=== PATIENT | female | born 1970 | race Caucasian/White ===

== ENCOUNTER 2017-07-10 11:14 | Emergency (ER) | payer OTHER ==
--- NOTE | 2017-07-10 11:39 | PDOC ---
History of Present Illness - General History Source: Patient Exam Limitations: No Limitations - History of Present Illness Initial Comments: 07/10/17 13:34 The patient is a 47-year-old female from [facility] with a significant past medical history of cerebral palsy, severe mental retardation, quadriplegic, microcephaly, epilepsy, scoliosis, and presents to the emergency department with shortness of breath. As per [employer]OVE [employer], the patient sounded like she was having difficulty breathing while she was at the day program. GLOVE BO[employer]ER denies fever. Patient is unable to provide any history or ROS secondary to clinical state. History is limited to patient records and [employer] statements. Allergies: NKDA PCP: Dr. Madai Colbert <Tamy Dennis - Last Filed: 07/10/17 13:51> <Olivia Lee - Last Filed: 07/10/17 15:25> - General Chief Complaint: Shortness of Breath Stated Complaint: Shortness of Breath Time Seen by Provider: 07/10/17 11:39 Past History <Tamy Dennis - Last Filed: 07/10/17 13:51> - Past Medical History GI Disorders: Yes (G TUBE) Seizures: Yes (EPILEPSY) - Suicide/Smoking/Psychosocial Hx Smoking Status: No Smoking History: Never smoked Number of Cigarettes Smoked Daily: 0 Hx Alcohol Use: No Drug/Substance Use Hx: No Substance Use Type: None Hx Substance Use Treatment: No <Olivia Lee - Last Filed: 07/10/17 15:25> - Past Medical History Allergies/Adverse Reactions: Allergies Allergy/AdvReac Type Severity Reaction Status Date / Time No Known Allergies Allergy Verified 07/10/17 12:08 Home Medications: Ambulatory Orders Benzoyl Peroxide [Triaz] 01/31/12 Bisacodyl [Magic Bullet] 10 mg RC 01/31/12 Calcium Carbonate/Vitamin D3 [Oysco 500-Vit D3 200 Tablet] 1 each PO DAILY 01/30 CarBAMazepine [Carbatrol ER] 200 mg NR BID 01/31/12 Diazepam [Valium] 5 mg PO TID 01/31/12 Hydrocortisone 2.5% Lotion [Hytone 2.5% Lotion -] ONCE 01/31/12 Loratadine [Claritin 5mg/5mL Liquid] 10 mg PO DAILY 01/31/12 Magnesium Hydrox 2400MG/30Ml [Milk Of Magnesia] 300 mg PO 01/31/12 Mineral Oil [Enema] ml RC 01/31/12 Multivitamin [Multivitamins] 1 each PO DAILY 01/31/12 Ondansetron [Zofran -] 4 mg PO TID #14 tablet 01/31/12 Petrolatum,White [Balmex] 01/31/12 Ranitidine Oral Solution [Zantac Oral Solution -] 10 mg PO DAILY 01/31/12 Selenium mcg PO 01/31/12 Talc [Zeasorb -] 70.9 gm NR BID 01/31/12 Thymol/Me-Salicylate/Menth/Euc [Listerine Antiseptic] ml MM 01/31/12 levoFLOXacin [Levaquin] 500 mg PO DAILY #0 tablet 06/07/12 Review of Systems - Review of Systems Able to Perform ROS?: No (secondary to severe MR) <Tamy Dennis - Last Filed: 07/10/17 13:51> *Physical Exam - Vital Signs Last Vital Signs Temp Pulse Resp BP Pulse Ox 99.6 F 83 20 104/82 96 07/10/17 12:06 07/10/17 12:06 07/10/17 12:06 07/10/17 12:06 07/10/17 12:06 - Physical Exam Comments: 07/10/17 13:51 GENERAL: The patient is in no acute distress. HEAD: Atraumatic, microcephalic. EYES: PERRLA, EOMI, sclera anicteric, conjunctiva clear. ENT: Ears normal, nares patent, oropharynx clear without exudates. Moist mucous membranes. NECK: Supple without lymphadenopathy, JVD, or masses. LUNGS: Breath sounds equal, clear to auscultation bilaterally. No wheezes, and no crackles. HEART: Regular rate and rhythm, normal S1 and S2 without murmur, rub or gallop. ABDOMEN: Soft, nontender, normoactive bowel sounds. G-tube clean and dry. EXTREMITIES: Contracted. No edema. No erythema, or tenderness. NEUROLOGICAL: Alert MUSCULOSKELETAL: Back nontender to palpation, no CVA tenderness SKIN: Warm, Dry, normal turgor, no rashes or lesions noted. <Tamy Dennis - Last Filed: 07/10/17 13:51> ED Treatment Course - LABORATORY CBC & Chemistry Diagram: 07/10/17 12:30 07/10/17 12:30 - ADDITIONAL ORDERS Additional order review: Laboratory Results 07/10/17 07/10/17 07/10/17 12:30 12:30 12:30 PT with INR INR PTT (Actin FS) VBG pH 7.48 H POC VBG pCO2 32.3 L POC VBG pO2 58.1 H Mixed VBG HCO3 23.8 Sodium 138 Potassium 3.7 Chloride 104 Carbon Dioxide 26 Anion Gap 8 BUN 12 Creatinine 0.5 L Creat Clearance w eGFR > 60 Random Glucose 95 Lactic Acid 1.3 Calcium 8.9 Total Bilirubin 0.6 AST 17 ALT 21 Alkaline Phosphatase 113 Creatine Kinase 127 Troponin I < 0.02 Total Protein 7.6 Albumin 4.0 Serum , Qual 07/10/17 07/10/17 12:30 11:55 PT with INR 12.10 H INR 1.07 PTT (Actin FS) 35.8 H VBG pH POC VBG pCO2 POC VBG pO2 Mixed VBG HCO3 Sodium Potassium Chloride Carbon Dioxide Anion Gap BUN Creatinine Creat Clearance w eGFR Random Glucose Lactic Acid Calcium Total Bilirubin AST ALT Alkaline Phosphatase Creatine Kinase Troponin I Total Protein Albumin Serum , Qual Negative 07/10/17 12:30 RBC 4.70 MCV 93.2 MCHC 34.3 RDW 12.3 MPV 9.2 Neutrophils % 57.3 Lymphocytes % 22.9 Monocytes % 13.3 H Eosinophils % 5.8 H D Basophils % 0.7 - Medications Given in the ED: ED Medications Discontinued Medications Generic Name Dose Route Start Last Admin Trade Name Freq PRN Reason Stop Dose Admin Sodium Chloride 1,000 mls @ 1,000 mls/hr 07/10/17 11:55 07/10/17 12:20 Normal Saline - IV 07/10/17 12:54 Not Given ASDIR STA <aTmy Dennis - Last Filed: 07/10/17 13:51> - LABORATORY CBC & Chemistry Diagram: 07/10/17 12:30 07/10/17 12:30 <Olivia Lee - Last Filed: 07/10/17 15:25> Medical Decision Making - Medical Decision Making 07/10/17 14:09 47-year-old female with history of cerebral palsy, seizure disorder who was sent emergency department due to shortness of breath. No fever. No respiratory distress upon arrival here to the emergency department Patient's clinical examination: Selected Entries 07/10/17 12:06 Temperature 99.6 F Pulse Rate 83 Respiratory 20 Rate Blood Pressure 104/82 O2 Sat by Pulse 96 Oximetry (%) Regular rate and rhythm Lungs are clear Pt is using no accessory muscles no nasal flaring DD: Viral syndrome, Pneumonia, Bronchitis, Pleural effusion, pneumothorax EKG: Normal sinus rhythm, rate of 92 bpm, axis is normal, intervals are normal, no ST elevations or depressions 07/10/17 15:16 Laboratory Tests 07/10/17 07/10/17 07/10/17 11:55 12:30 12:30 WBC 8.9 Hgb 15.0 Hct 43.8 Plt Count 316 D Neutrophils % 57.3 Lymphocytes % 22.9 INR 1.07 VBG pH POC VBG pCO2 POC VBG pO2 Mixed VBG HCO3 Sodium Potassium Chloride Carbon Dioxide BUN Creatinine Random Glucose Creatine Kinase Troponin I Serum , Qual Negative 07/10/17 07/10/17 12:30 12:30 WBC Hgb Hct Plt Count Neutrophils % Lymphocytes % INR VBG pH 7.48 H POC VBG pCO2 32.3 L POC VBG pO2 58.1 H Mixed VBG HCO3 23.8 Sodium 138 Potassium 3.7 Chloride 104 Carbon Dioxide 26 BUN 12 Creatinine 0.5 L Random Glucose 95 Creatine Kinase 127 Troponin I < 0.02 Serum , Qual Chest x-ray: Normal I will discharge this patient to home Will ask her to follow up with her PMD Will discharge on Azithromycin Monitor for fevers Clinical Impression: upper respiratory infection 07/10/17 15:17 <Olivia Lee - Last Filed: 07/10/17 15:25> *DC/Admit/Observation/Transfer - Attestations Scribe Attestion: 07/10/17 13:38 Documentation prepared by Tamy Dennis, acting as medical record librarian for Olivia Lee MD/DO. <Tamy Dennis - Last Filed: 07/10/17 13:51> - Discharge Dispostion Admit: No <Olivia Lee - Last Filed: 07/10/17 15:25> Diagnosis at time of Disposition: Upper respiratory infection Qualifiers: URI type: unspecified URI Qualified Code(s): J06.9 - Acute upper respiratory infection, unspecified - Discharge Dispostion Disposition: HOME Condition at time of disposition: Stable - Referrals Referrals: Madai Colbert [Primary Care Provider] - - Patient Instructions Printed Discharge Instructions: DI for Viral Upper Respiratory Infection -- Adult Additional Instructions: Today you were seen for an upper respiratory infection. Take the antibiotic zithromax as directed. You may take robitussin as needed for cough at night. Stay well hydrated and rest. Follow up with your primary care provider within 24 to 48 hours. Go to the emergency room if any new or worsening symptoms develop. - Post Discharge Activity
[2017-07-10 12:08] VITALS: BMI 26.7
[2017-07-10] MEDS ORDERED: ALBUTEROL SO4 2.5/IPRATROPIUM 0.5 INH SOL 3 ML VIAL.NEB. NEB ONE (12:11)
[2017-07-10] MEDS: SODIUM CHLORIDE 1,000 ML IV STA ×2 (12:20→14:31)
[2017-07-10 12:44] LABS: BASO % 0.7 % (0-2.0); EOS % 5.8 % (0-4.5); HEMATOCRIT 43.8 % (32.4-45.2); LYMPH % 22.9 % (8-40); MCHC 34.3 g/dl (32.0-36.0); MEAN CELL VOLUME 93.2 fl (80-96); MEAN PLT VOLUME 9.2 fl (7.5-11.1); MONO % 13.3 % (3.8-10.2); NEUT % 57.3 % (42.8-82.8); PLATELET COUNT 316 K/MM3 (134-434); RDW 12.3 % (11.6-15.6); WHITE BLOOD COUNT 8.9 K/mm3 (4.0-10.0)
[2017-07-10 12:46] LABS: VENOUS PC02 32.3 mmHg (38-52); VENOUS PH 7.48 (7.32-7.42); VENOUS PO2 58.1 mmHg (28-48)
[2017-07-10 12:58] LABS: INR 1.07 (0.82-1.09); PROTHROMBIN TIME (PATIENT) 12.1 SEC (9.98-11.88)
[2017-07-10 13:01] LABS: ACTIVATED PTT 35.8 SECONDS (26.9-34.4)
[2017-07-10 13:09] LABS: ANION GAP 8 (8-16); BILIRUBIN,TOTAL 0.6 mg/dL (0.2-1.0); BLOOD UREA NITROGEN 12 mg/dL (7-18); CALCIUM 8.9 mg/dL (8.5-10.1); CHLORIDE 104 mmol/L (98-107); CO2 26 mmol/L (21-32); CREATININE 0.5 mg/dL (0.55-1.02); GLUCOSE,RANDOM 95 mg/dL (74-106); POTASSIUM 3.7 mmol/L (3.5-5.1); SGOT/AST 17 U/L (15-37); SGPT/ALT 21 U/L (12-78); SODIUM 138 mmol/L (136-145); TOT PROT 7.6 g/dl (6.4-8.2)
[2017-07-10 13:11] LABS: ALK PHOS 113 U/L (45-117)
[2017-07-10 16:02] VITALS: BP 99/60; PULSE 91
[2017-07-10 16:11] VITALS: TEMP 6
--- NOTE | 2017-07-10 16:35 | EKG ---
Test Reason : Blood Pressure : / mmHG Vent. Rate : 092 BPM Atrial Rate : 092 BPM P-R Int : 126 ms QRS Dur : 072 ms QT Int : 328 ms P-R-T Axes : 067 080 050 degrees QTc Int : 405 ms NORMAL SINUS RHYTHM NONSPECIFIC ST AND T WAVE ABNORMALITY ABNORMAL ECG WHEN COMPARED WITH ECG OF 05-JUN-2012 23:31, NO SIGNIFICANT CHANGE WAS FOUND Confirmed by MD Carlie, Morris ([id number]) on 07/10/2017 4:35:42 PM Referred By: Confirmed By:Morris Sexton MD
== END 2017-07-10 15:50 | disposition home or self-care (01) ==
LOC: JER 11:14
PROC: 3E0337Z Introduction of Electrolytic and Water Balance Substance into Peripheral Vein, Percutaneous Approach (ICD-10-PCS; principal; 2017-07-10)
DX: J06.9 Acute upper respiratory infection, unspecified (principal); B97.89 Other viral agents as the cause of diseases classified elsewhere; F78 Other intellectual disabilities; G80.0 Spastic quadriplegic cerebral palsy; Q02 Microcephaly; M41.80 Other forms of scoliosis, site unspecified; Z93.1 Gastrostomy status
CPT/HCPCS: 36415; 71045-TC; 80053; 82550; 82803; 83605; 84484; 84703; 85025; 85610; 85730; 87040; 93005; 93010; 96360; 99284-25

== ENCOUNTER 2020-05-06 16:58 | Inpatient (IN) | payer OTHER ==
[2020-05-06 18:55] LABS: BASO % 0.6 % (0-2.0); EOS % 0.1 % (0-4.5); HEMATOCRIT 43.7 % (32.4-45.2); HEMOGLOBIN 14.4 GM/dL (10.7-15.3); LYMPH % 20.1 % (8-40); MCH 31.1 pg (25.7-33.7); MEAN CELL VOLUME 94.2 fl (80-96); MEAN PLT VOLUME 10.2 fl (7.5-11.1); MONO % 8.7 % (3.8-10.2); NEUT % 70.5 % (42.8-82.8); PLATELET COUNT 321 K/MM3 (134-434); RBC 4.64 M/mm3 (3.60-5.2); RDW 12.1 % (11.6-15.6); WHITE BLOOD COUNT 11.2 K/mm3 (4.0-10.0)
[2020-05-06 19:04] LABS: INR 1.04 (0.83-1.09); PROTHROMBIN TIME (PATIENT) 12.6 SEC (9.7-13.0)
[2020-05-06 19:07] LABS: ACTIVATED PTT 33.6 SECONDS (25.2-36.5)
[2020-05-06 19:18] LABS: POTASSIUM 5.8 mmol/L (3.5-5.1)
[2020-05-06 19:20] LABS: CALCIUM 9.5 mg/dL (8.5-10.1)
[2020-05-06 19:21] LABS: ALBUMIN 3.7 g/dl (3.4-5.0); BLOOD UREA NITROGEN 19.1 mg/dL (7-18)
[2020-05-06 19:24] LABS: CREATININE 0.6 mg/dL (0.55-1.3)
[2020-05-06 19:26] LABS: BILIRUBIN,TOTAL 0.7 mg/dL (0.2-1); TOT PROT 7.8 g/dl (6.4-8.2)
[2020-05-06] MEDS ORDERED: ACETAMINOPHEN 1000 MG/100 ML VIAL (NON FORMULARY) IVPB ONE (20:01)
[2020-05-06] MEDS ORDERED: LACTATED RINGERS SOLUTION 1000 ML INFUS.BAG IV ONE (20:01)
[2020-05-06 20:32] LABS: ERYTHROCYTE SEDIMENTATION RATE 10 mm/hr (0-30)
[2020-05-06] MEDS ORDERED: VANCOMYCIN 1 GM in D5W (PRE-DOCKED) 1,000 MG/250 ML IVPB ONE (20:41)
[2020-05-06] MEDS ORDERED: ACETAMINOPHEN INJECTION 100 ML IVPB ONE (21:07)
[2020-05-06] MEDS ORDERED: VANCOMYCIN 1 GRAM (PRE-DOCKED) 1,000 MG/250 ML BAG IVPB ONE (21:18)
[2020-05-07] MEDS: LACTATED RINGERS SOLUTION 1,000 ML/1,000 ML INFUS.BAG IV SCH (03:01)
[2020-05-07] MEDS ORDERED: VANCOMYCIN 1,000 MG in DEXTROSE 5%-WATER - 250 ML IVPB SCH (06:00)
[2020-05-07] MEDS ORDERED: VANCOMYCIN 1 GRAM (PRE-DOCKED) 1,000 MG/250 ML BAG IVPB ONE (06:13)
[2020-05-07] MEDS: diazePAM 2 MG TABLET GT SCH ×3 (06:44→21:23)
[2020-05-07 08:14] LABS: URIC ACID 3.3 mg/dL (2.6-7.2)
[2020-05-07 08:22] LABS: HEMATOCRIT 34.7 % (32.4-45.2); HEMOGLOBIN 11.6 GM/dL (10.7-15.3); MCHC 33.3 g/dl (32.0-36.0); MEAN CELL VOLUME 93.1 fl (80-96); MEAN PLT VOLUME 10.3 fl (7.5-11.1); PLATELET COUNT 251 K/MM3 (134-434); RBC 3.73 M/mm3 (3.60-5.2); RDW 12.2 % (11.6-15.6); WHITE BLOOD COUNT 8.3 K/mm3 (4.0-10.0)
[2020-05-07 08:31] LABS: POTASSIUM 3.2 mmol/L (3.5-5.1)
[2020-05-07 08:40] LABS: ALBUMIN 3.1 g/dl (3.4-5.0); BLOOD UREA NITROGEN 12.4 mg/dL (7-18); CALCIUM 8.4 mg/dL (8.5-10.1); MAGNESIUM 1.9 mg/dL (1.8-2.4)
[2020-05-07 08:43] LABS: CREATININE 0.3 mg/dL (0.55-1.3); PHOSPHOROUS 2.7 mg/dL (2.5-4.9)
[2020-05-07 08:45] LABS: TOT PROT 6.2 g/dl (6.4-8.2)
[2020-05-07] MEDS ORDERED: SODIUM CHLORIDE 500 ML IV STA (09:06)
[2020-05-07 09:44] LABS: EPI CELLS 18 /uL (0-25.1); HYALINE CASTS 8 /uL (0-3.1); PH,URINE 6.5 (5.0-8.0); URINE APPEARANCE CLOUDY; URINE BACTERIA 5804 /uL (0-1359); URINE BILIRUBIN NEGATIVE (NEGATIVE); URINE COLOR YELLOW; URINE GLUCOSE (UA) NEGATIVE (NEGATIVE); URINE KETONE TRACE (NEGATIVE); URINE LEUK ESTERASE 2+ (NEGATIVE); URINE NITRITE POSITIVE (NEGATIVE); URINE PROTEIN NEGATIVE (NEGATIVE); URINE RBC 16 /uL (0-23.9); URINE UROBILINOGEN 0.2 mg/dL (0.2-1.0); URINE WBC 254 /uL (0-25.8)
[2020-05-07 15:45] LABS: BF WBC & OTHER NUCLEATED CELLS 11942 /mm3
[2020-05-07 16:50] LABS: BODY FLUID MONOCYTE 19 %
[2020-05-07] MEDS ORDERED: DEXTROSE 5%-WATER - 50 ML IVPB ONE (19:24)
[2020-05-07] MEDS ORDERED: PIPERACILLIN/TAZOBACTAM 3.375 GM VIAL IVPB ONE (19:24)
[2020-05-07] MEDS: PIPERACILLIN/TAZOB 3.375 GM 3.375 GM in DEXTROSE 5%-WATER - 50 ML IVPB SCH (19:29)
[2020-05-07] MEDS: VANCOMYCIN 1 GRAM (PRE-DOCKED) 1,000 MG/250 ML BAG IVPB SCH (19:29)
[2020-05-07] MEDS: ACETAMINOPHEN 650 MG/20.3 ML ORAL SOLUTION (CUPS) PEG PRN (21:23)
[2020-05-08] MEDS: LACTATED RINGERS SOLUTION 1,000 ML/1,000 ML INFUS.BAG IV SCH ×3 (00:05→17:25)
[2020-05-08] MEDS ORDERED: PIPERACILLIN/TAZOBACTAM 3.375 GM VIAL IVPB ONE ×3 (02:17→17:21)
[2020-05-08] MEDS ORDERED: DEXTROSE 5%-WATER - 50 ML IVPB ONE ×3 (02:18→17:22)
[2020-05-08] MEDS: PIPERACILLIN/TAZOB 3.375 GM 3.375 GM in DEXTROSE 5%-WATER - 50 ML IVPB SCH ×3 (02:43→17:25)
[2020-05-08] MEDS: diazePAM 2 MG TABLET GT SCH ×3 (05:46→21:01)
[2020-05-08] MEDS: VANCOMYCIN 1 GRAM (PRE-DOCKED) 1,000 MG/250 ML BAG IVPB SCH (05:46)
[2020-05-08] MEDS ORDERED: VANCOMYCIN 1,000 MG in DEXTROSE 5%-WATER - 250 ML IVPB SCH (06:00)
[2020-05-08 09:18] LABS: INR 0.99 (0.83-1.09)
[2020-05-08 09:20] LABS: ACTIVATED PTT 30.7 SECONDS (25.2-36.5)
[2020-05-08] MEDS: ACETAMINOPHEN 650 MG/20.3 ML ORAL SOLUTION (CUPS) PEG PRN (13:24)
[2020-05-09] MEDS ORDERED: PIPERACILLIN/TAZOBACTAM 3.375 GM VIAL IVPB ONE ×3 (01:02→15:48)
[2020-05-09] MEDS ORDERED: DEXTROSE 5%-WATER - 50 ML IVPB ONE ×3 (01:03→15:48)
[2020-05-09] MEDS: PIPERACILLIN/TAZOB 3.375 GM 3.375 GM in DEXTROSE 5%-WATER - 50 ML IVPB SCH ×3 (01:34→17:35)
[2020-05-09] MEDS: diazePAM 2 MG TABLET GT SCH ×3 (05:34→21:56)
[2020-05-09] MEDS: LACTATED RINGERS SOLUTION 1,000 ML/1,000 ML INFUS.BAG IV SCH ×2 (05:35→09:40)
[2020-05-09 08:54] LABS: BASO % 0.5 % (0-2.0); EOS % 0.7 % (0-4.5); HEMATOCRIT 35.6 % (32.4-45.2); HEMOGLOBIN 12.3 GM/dL (10.7-15.3); LYMPH % 29.9 % (8-40); MCH 31.9 pg (25.7-33.7); MCHC 34.5 g/dl (32.0-36.0); MEAN CELL VOLUME 92.4 fl (80-96); NEUT % 52.9 % (42.8-82.8); PLATELET COUNT 282 K/MM3 (134-434); RBC 3.85 M/mm3 (3.60-5.2); WHITE BLOOD COUNT 9.8 K/mm3 (4.0-10.0)
[2020-05-09 09:13] LABS: POTASSIUM 3.4 mmol/L (3.5-5.1)
[2020-05-09 09:14] LABS: CALCIUM 8.4 mg/dL (8.5-10.1)
[2020-05-09 09:15] LABS: ALBUMIN 2.8 g/dl (3.4-5.0); BLOOD UREA NITROGEN 10.3 mg/dL (7-18)
[2020-05-09 09:18] LABS: CREATININE 0.3 mg/dL (0.55-1.3)
[2020-05-09 09:20] LABS: TOT PROT 6.1 g/dl (6.4-8.2)
[2020-05-09 09:23] LABS: BILIRUBIN,TOTAL 0.4 mg/dL (0.2-1)
[2020-05-09] MEDS: ACETAMINOPHEN 650 MG/20.3 ML ORAL SOLUTION (CUPS) PEG PRN (09:51)
[2020-05-09] MEDS ORDERED: VANCOMYCIN 1 GRAM (PRE-DOCKED) 1,000 MG/250 ML BAG IVPB SCH (10:00)
[2020-05-09 11:32] VITALS: BMI 22.3
[2020-05-09] MEDS: KCL 10 MEQ IVPB 10 MEQ/100 ML INFUS.BAG IVPB SCH ×3 (12:54→16:10)
[2020-05-10] MEDS ORDERED: DEXTROSE 5%-WATER - 50 ML IVPB ONE ×3 (01:19→17:37)
[2020-05-10] MEDS ORDERED: PIPERACILLIN/TAZOBACTAM 3.375 GM VIAL IVPB ONE ×3 (01:19→17:36)
[2020-05-10] MEDS: PIPERACILLIN/TAZOB 3.375 GM 3.375 GM in DEXTROSE 5%-WATER - 50 ML IVPB SCH ×3 (01:33→17:54)
[2020-05-10] MEDS: LACTATED RINGERS SOLUTION 1,000 ML/1,000 ML INFUS.BAG IV SCH (05:06)
[2020-05-10] MEDS: diazePAM 2 MG TABLET GT SCH ×3 (06:05→22:01)
[2020-05-10 08:59] LABS: EOS % 3.2 % (0-4.5); HEMATOCRIT 35.7 % (32.4-45.2); HEMOGLOBIN 12.1 GM/dL (10.7-15.3); LYMPH % 37.3 % (8-40); MCH 31.6 pg (25.7-33.7); MCHC 33.9 g/dl (32.0-36.0); MEAN CELL VOLUME 93.2 fl (80-96); MEAN PLT VOLUME 9.4 fl (7.5-11.1); MONO % 12.6 % (3.8-10.2); NEUT % 45.9 % (42.8-82.8); PLATELET COUNT 284 K/MM3 (134-434); RBC 3.83 M/mm3 (3.60-5.2); WHITE BLOOD COUNT 6.9 K/mm3 (4.0-10.0)
[2020-05-10 09:14] LABS: POTASSIUM 3.7 mmol/L (3.5-5.1)
[2020-05-10 09:17] LABS: ALBUMIN 2.6 g/dl (3.4-5.0); BLOOD UREA NITROGEN 6.2 mg/dL (7-18); CALCIUM 8.7 mg/dL (8.5-10.1); MAGNESIUM 2.1 mg/dL (1.8-2.4)
[2020-05-10 09:21] LABS: CREATININE 0.3 mg/dL (0.55-1.3)
[2020-05-10 09:22] LABS: BILIRUBIN,TOTAL 0.4 mg/dL (0.2-1)
[2020-05-11] MEDS ORDERED: PIPERACILLIN/TAZOBACTAM 3.375 GM VIAL IVPB ONE ×3 (01:44→17:53)
[2020-05-11] MEDS ORDERED: DEXTROSE 5%-WATER - 50 ML IVPB ONE ×3 (01:44→17:53)
[2020-05-11] MEDS: PIPERACILLIN/TAZOB 3.375 GM 3.375 GM in DEXTROSE 5%-WATER - 50 ML IVPB SCH ×3 (02:01→18:03)
[2020-05-11] MEDS: diazePAM 2 MG TABLET GT SCH ×3 (06:39→21:59)
[2020-05-11] MEDS: ACETAMINOPHEN 650 MG/20.3 ML ORAL SOLUTION (CUPS) PEG PRN (11:02)
[2020-05-11 14:21] LABS: POTASSIUM 3.5 mmol/L (3.5-5.1)
[2020-05-11 14:22] LABS: CALCIUM 8.7 mg/dL (8.5-10.1)
[2020-05-11 14:23] LABS: BLOOD UREA NITROGEN 8.5 mg/dL (7-18)
[2020-05-11 14:26] LABS: CREATININE 0.4 mg/dL (0.55-1.3)
[2020-05-11] MEDS ORDERED: ACETAMINOPHEN 650 MG/20.3 ML ORAL SOLUTION (CUPS) PO PRN (16:48)
[2020-05-11] MEDS ORDERED: ACETAMINOPHEN 650 MG/20.3 ML ORAL SOLUTION (CUPS) PEG PRN (16:59)
[2020-05-12] MEDS ORDERED: PIPERACILLIN/TAZOBACTAM 3.375 GM VIAL IVPB ONE ×3 (02:30→16:25)
[2020-05-12] MEDS ORDERED: DEXTROSE 5%-WATER - 50 ML IVPB ONE ×3 (02:30→16:25)
[2020-05-12] MEDS: PIPERACILLIN/TAZOB 3.375 GM 3.375 GM in DEXTROSE 5%-WATER - 50 ML IVPB SCH ×3 (02:50→17:38)
[2020-05-12] MEDS: diazePAM 2 MG TABLET GT SCH ×3 (06:03→21:55)
[2020-05-12 10:18] LABS: HEMATOCRIT 37.9 % (32.4-45.2); HEMOGLOBIN 13.1 GM/dL (10.7-15.3); MCH 32.4 pg (25.7-33.7); MCHC 34.6 g/dl (32.0-36.0); MEAN CELL VOLUME 93.6 fl (80-96); MEAN PLT VOLUME 9.4 fl (7.5-11.1); PLATELET COUNT 339 K/MM3 (134-434); RBC 4.05 M/mm3 (3.60-5.2); RDW 12.2 % (11.6-15.6); WHITE BLOOD COUNT 7.7 K/mm3 (4.0-10.0)
[2020-05-12 10:28] LABS: POTASSIUM 3.4 mmol/L (3.5-5.1)
[2020-05-12 10:59] LABS: BLOOD UREA NITROGEN 11.2 mg/dL (7-18); CALCIUM 8.8 mg/dL (8.5-10.1)
[2020-05-12 11:02] LABS: CREATININE 0.4 mg/dL (0.55-1.3)
[2020-05-13] MEDS ORDERED: PIPERACILLIN/TAZOBACTAM 3.375 GM VIAL IVPB ONE (02:17)
[2020-05-13] MEDS ORDERED: DEXTROSE 5%-WATER - 50 ML IVPB ONE (02:17)
[2020-05-13] MEDS: PIPERACILLIN/TAZOB 3.375 GM 3.375 GM in DEXTROSE 5%-WATER - 50 ML IVPB SCH (02:34)
[2020-05-13] MEDS: diazePAM 2 MG TABLET GT SCH ×3 (05:59→21:36)
[2020-05-13] MEDS ORDERED: PCA PUMP NR ONE (06:21)
[2020-05-13] MEDS ORDERED: ACETAMINOPHEN 650 MG/20.3 ML ORAL SOLUTION (CUPS) PEG PRN (11:43)
[2020-05-13] MEDS ORDERED: POTASSIUM CHLORIDE ORAL LIQUID 20 MEQ/15 ML PEG ONE (12:00)
[2020-05-13] MEDS ORDERED: PT OWN MED DRAWER 7, Y5N ONE (18:57)
[2020-05-13] MEDS: ENOXAPARIN NA (PORCINE) 40 MG/0.4 ML DISP.SYRIN SQ SCH (19:00)
[2020-05-14] MEDS: diazePAM 2 MG TABLET GT SCH ×2 (06:05→14:18)
[2020-05-14 09:08] LABS: POTASSIUM 3.7 mmol/L (3.5-5.1)
[2020-05-14 09:09] LABS: CALCIUM 9.2 mg/dL (8.5-10.1)
[2020-05-14 09:10] LABS: BLOOD UREA NITROGEN 18.8 mg/dL (7-18)
[2020-05-14 09:13] LABS: CREATININE 0.4 mg/dL (0.55-1.3)
[2020-05-14] MEDS: ENOXAPARIN NA (PORCINE) 40 MG/0.4 ML DISP.SYRIN SQ SCH (09:30)
[2020-05-14 15:04] VITALS: BP 112/51; PULSE 86; TEMP 99
== END 2020-05-14 16:52 | DRG 871 ==
LOC: JER 16:58 → JERBED 23:43 → J5S 05-07 17:13 → J6S 05-13 18:18
PROVIDERS: ADMIT Hospitalist; ATTEND Internal Medicine
PROC: 0S9C3ZX Drainage of Right Knee Joint, Percutaneous Approach, Diagnostic (ICD-10-PCS; principal; 2020-05-07)
DX: A41.89 Other specified sepsis (principal); R53.2 Functional quadriplegia; F72 Severe intellectual disabilities; L03.115 Cellulitis of right lower limb; E87.2 Acidosis; Q67.5 Congenital deformity of spine; N39.0 Urinary tract infection, site not specified; M25.061 Hemarthrosis, right knee; G40.909 Epilepsy, unspecified, not intractable, without status epilepticus; G80.9 Cerebral palsy, unspecified; Q02 Microcephaly; D72.829 Elevated white blood cell count, unspecified; Z93.1 Gastrostomy status; B96.20 Unspecified Escherichia coli [E. coli] as the cause of diseases classified elsewhere; Z74.01 Bed confinement status; M25.461 Effusion, right knee; N20.0 Calculus of kidney
CPT/HCPCS: 36415; 71045-TC-FY; 71260-TC; 73560-TC-RT-FY; 73610-TC-RT-FY; 73630-TC-RT-FY; 74177-TC; 76882-TC-RT-FY; 80048; 80053; 81003; 83605; 83735; 83970; 84100; 84132; 84550; 85025; 85027; 85610; 85651; 85730; 86038; 86140; 86618; 87040; 87070; 87075; 87086; 87186; 87205; 87804; 87807; 93005; 93010; 93971-TC; 99285-25; C9803; G0480; J0131; U0003

== ENCOUNTER 2021-12-11 19:17 | Observation (INO) | payer OTHER ==
[2021-12-11 19:54] VITALS: BMI 23.9
[2021-12-11 22:01] LABS: EOS % 2.4 % (0-4.5); HEMATOCRIT 42.2 % (32.4-45.2); HEMOGLOBIN 14.8 GM/dL (10.7-15.3); LYMPH % 34.9 % (8-40); MCH 31.8 pg (25.7-33.7); MEAN CELL VOLUME 90.9 fl (80-96); MONO % 9.1 % (3.8-10.2); NEUT % 52.6 % (42.8-82.8); PLATELET COUNT 418 10^3/uL (134-434); RBC 4.64 M/mm3 (3.60-5.2); RDW 12.1 % (11.6-15.6); WHITE BLOOD COUNT 6.8 K/mm3 (4.0-10.0)
[2021-12-11 22:08] LABS: INR 1.11 (0.83-1.09); PROTHROMBIN TIME (PATIENT) 12.8 SEC (9.7-13.0)
[2021-12-11 22:10] LABS: ACTIVATED PTT 40.9 SECONDS (25.2-36.5)
[2021-12-11 22:41] LABS: CALCIUM 9.3 mg/dL (8.5-10.1)
[2021-12-11 22:42] LABS: ALBUMIN 3.7 g/dl (3.4-5.0); BLOOD UREA NITROGEN 10.4 mg/dL (7-18)
[2021-12-11 22:45] LABS: CREATININE 0.4 mg/dL (0.55-1.3)
[2021-12-11 22:47] LABS: BILIRUBIN,TOTAL 0.4 mg/dL (0.2-1)
[2021-12-12] MEDS ORDERED: VANCOMYCIN 750 MG in DEXTROSE 5%-WATER - 150 ML IVPB SCH ×3 (02:30→06:45)
[2021-12-12] MEDS ORDERED: VANCOMYCIN/WATER FOR INJ (PEG) 750 MG/150 ML BAG IVPB SCH (05:54)
[2021-12-12] MEDS: LACTATED RINGERS SOLUTION 1,000 ML/1,000 ML INFUS.BAG IV SCH (06:06)
[2021-12-12] MEDS ORDERED: HEPARIN NA (PORCINE) 5,000 UNITS/ML 1ML VIAL ONE ×3 (06:43→23:48)
[2021-12-12] MEDS: HEPARIN NA (PORCINE) 5,000 UNITS/ML 1ML VIAL SQ SCH ×2 (06:50→14:06)
[2021-12-12] MEDS ORDERED: LACTATED RINGERS SOLUTION 1000 ML INFUS.BAG IV ONE (07:53)
[2021-12-12] MEDS ORDERED: diazePAM CARPU-JECT 10 MG/2 ML DISP.SYRIN ONE ×3 (08:34→23:49)
[2021-12-12] MEDS: diazePAM CARPU-JECT 10 MG/2 ML DISP.SYRIN IM SCH ×2 (08:39→14:06)
[2021-12-12 10:22] LABS: EOS % 2.5 % (0-4.5); HEMATOCRIT 40.8 % (32.4-45.2); HEMOGLOBIN 14.1 GM/dL (10.7-15.3); LYMPH % 36.5 % (8-40); MCH 31.6 pg (25.7-33.7); MCHC 34.6 g/dl (32.0-36.0); MEAN CELL VOLUME 91.4 fl (80-96); MEAN PLT VOLUME 9.7 fl (7.5-11.1); MONO % 9.1 % (3.8-10.2); NEUT % 50.9 % (42.8-82.8); PLATELET COUNT 440 10^3/uL (134-434); RBC 4.47 M/mm3 (3.60-5.2); RDW 12.3 % (11.6-15.6); WHITE BLOOD COUNT 6.3 K/mm3 (4.0-10.0)
[2021-12-12 10:37] LABS: ALBUMIN 3.6 g/dl (3.4-5.0); CALCIUM 9.2 mg/dL (8.5-10.1); MAGNESIUM 2.6 mg/dL (1.8-2.4)
[2021-12-12 10:40] LABS: PHOSPHOROUS 3.1 mg/dL (2.5-4.9)
[2021-12-12 10:41] LABS: CREATININE 0.3 mg/dL (0.55-1.3)
[2021-12-12 10:42] LABS: BILIRUBIN,TOTAL 0.6 mg/dL (0.2-1); TOT PROT 7.7 g/dl (6.4-8.2)
[2021-12-12] MEDS: VANCOMYCIN/WATER FOR INJ (PEG) 750 MG/150 ML BAG IVPB SCH (18:11)
[2021-12-13] MEDS: diazePAM CARPU-JECT 10 MG/2 ML DISP.SYRIN IM SCH ×3 (00:04→15:13)
[2021-12-13] MEDS: HEPARIN NA (PORCINE) 5,000 UNITS/ML 1ML VIAL SQ SCH ×3 (00:04→15:13)
[2021-12-13] MEDS: LACTATED RINGERS SOLUTION 1,000 ML/1,000 ML INFUS.BAG IV SCH (04:29)
[2021-12-13 05:46] VITALS: BP 140/79; PULSE 80; TEMP 98.1
[2021-12-13] MEDS ORDERED: HEPARIN NA (PORCINE) 5,000 UNITS/ML 1ML VIAL ONE ×2 (06:05→15:08)
[2021-12-13] MEDS ORDERED: diazePAM CARPU-JECT 10 MG/2 ML DISP.SYRIN ONE ×2 (06:05→15:08)
[2021-12-13] MEDS: VANCOMYCIN/WATER FOR INJ (PEG) 750 MG/150 ML BAG IVPB SCH (07:25)
[2021-12-13 11:27] LABS: BLOOD UREA NITROGEN 8.3 mg/dL (7-18); CALCIUM 8.4 mg/dL (8.5-10.1); CREATININE 0.3 mg/dL (0.55-1.3)
== END 2021-12-13 16:00 | disposition home or self-care (01) ==
LOC: JER 19:17 → JERBED 20:33 → INTOOBSV 20:33
PROVIDERS: ADMIT Internal Medicine; ATTEND Internal Medicine
PROC: 3E033NZ Introduction of Analgesics, Hypnotics, Sedatives into Peripheral Vein, Percutaneous Approach (ICD-10-PCS; principal; 2021-12-11)
PROC: 3E023GC Introduction of Other Therapeutic Substance into Muscle, Percutaneous Approach (ICD-10-PCS; 2021-12-11)
PROC: 3E0337Z Introduction of Electrolytic and Water Balance Substance into Peripheral Vein, Percutaneous Approach (ICD-10-PCS; 2021-12-11)
PROC: 3E03329 Introduction of Other Anti-infective into Peripheral Vein, Percutaneous Approach (ICD-10-PCS; 2021-12-11)
PROC: 0D20XUZ Change Feeding Device in Upper Intestinal Tract, External Approach (ICD-10-PCS; 2021-12-11)
DX: K94.22 Gastrostomy infection (principal); K94.23 Gastrostomy malfunction; K80.20 Calculus of gallbladder without cholecystitis without obstruction; L03.319 Cellulitis of trunk, unspecified; G40.909 Epilepsy, unspecified, not intractable, without status epilepticus; G80.9 Cerebral palsy, unspecified; M41.9 Scoliosis, unspecified
CPT/HCPCS: 36415; 74018-TC-FY; 74177-TC; 80048; 80053; 83605; 83690; 83735; 84100; 85025; 85610; 85730; 93005; 93010; 96360; 96365; 96372; 99285-25; C9803-CS; G0378; J1644; Q9967; U0003; U0005

== ENCOUNTER 2022-11-18 12:24 | Inpatient (IN) | payer OTHER ==
[2022-11-18] MEDS ORDERED: SODIUM CHLORIDE 0.9% 500 ML INFUS.BAG IV ONE (12:33)
[2022-11-18 13:18] LABS: VENOUS BASE EXCESS 5.9 mmol/L (-2-2); VENOUS PCO2 39.2 mmHg (38-52); VENOUS PH 7.495 (7.310-7.410)
[2022-11-18 13:20] LABS: EOS % 0.6 % (0-4.5); HEMATOCRIT 33.3 % (32.4-45.2); HEMOGLOBIN 11.5 GM/dL (10.7-15.3); LYMPH % 4.7 % (8-40); MCH 31.3 pg (25.7-33.7); MCHC 34.5 g/dl (32.0-36.0); MEAN CELL VOLUME 90.6 fl (80-96); MEAN PLT VOLUME 9.5 fl (7.5-11.1); MONO % 9.4 % (3.8-10.2); NEUT % 85.3 % (42.8-82.8); PLATELET COUNT 285 10^3/uL (134-434); RBC 3.67 M/mm3 (3.60-5.2); RDW 12.1 % (11.6-15.6)
[2022-11-18 13:27] LABS: INR 1.05 (0.83-1.09); PROTHROMBIN TIME (PATIENT) 12.2 SEC (9.7-13.0)
[2022-11-18 13:29] LABS: ACTIVATED PTT 27.3 SECONDS (25.2-36.5)
[2022-11-18 13:43] LABS: CHLORIDE 93 mmol/L (98-107); POTASSIUM 3.2 mmol/L (3.5-5.1); SODIUM 133 mmol/L (136-145)
[2022-11-18 13:43] LABS: EPI CELLS 25 /uL (0-25.1); HYALINE CASTS 0 /uL (0-3.1); URINE APPEARANCE CLEAR; URINE BACTERIA 945 /uL (0-1359); URINE BILIRUBIN NEGATIVE (NEGATIVE); URINE COLOR YELLOW; URINE GLUCOSE (UA) NEGATIVE (NEGATIVE); URINE KETONE NEGATIVE (NEGATIVE); URINE LEUK ESTERASE 3+ (NEGATIVE); URINE NITRITE NEGATIVE (NEGATIVE); URINE PROTEIN NEGATIVE (NEGATIVE); URINE RBC 5 /uL (0-23.9); URINE UROBILINOGEN 0.2 mg/dL (0.2-1.0); URINE WBC 301 /uL (0-25.8)
[2022-11-18 13:45] LABS: CALCIUM 8.6 mg/dL (8.5-10.1)
[2022-11-18 13:46] LABS: ALBUMIN 2.4 g/dl (3.4-5.0); ANION GAP 9 MMOL/L (8-16); BLOOD UREA NITROGEN 13.3 mg/dL (7-18); CO2 31 mmol/L (21-32); GLUCOSE,RANDOM 154 mg/dL (74-106)
[2022-11-18 13:49] LABS: CREATININE 0.4 mg/dL (0.55-1.3); SGOT/AST 13 U/L (15-37); SGPT/ALT 16 U/L (13-61)
[2022-11-18] MEDS ORDERED: CEFTRIAXONE 1,000 MG in DEXTROSE 5%-WATER - 50 ML IVPB ONE (13:49)
[2022-11-18] MEDS ORDERED: AZITHROMYCIN IVPB 500 MG in DEXTROSE 5%-WATER - 250 ML IVPB ONE (13:49)
[2022-11-18 13:50] LABS: BILIRUBIN,TOTAL 0.6 mg/dL (0.2-1); TOT PROT 6.1 g/dl (6.4-8.2)
[2022-11-18 13:51] LABS: ALK PHOS 101 U/L (45-117)
[2022-11-18] MEDS ORDERED: POTASSIUM CHLORIDE ORAL LIQUID 20 MEQ/15 ML PO ONE (13:53)
[2022-11-18] MEDS ORDERED: POTASSIUM CHLORIDE ORAL LIQUID 20 MEQ/15 ML PEG ONE (13:54)
[2022-11-18] MEDS ORDERED: CEFTRIAXONE 1 GM/50 ML BAG ONE (14:06)
[2022-11-18] MEDS ORDERED: POTASSIUM CHLORIDE ORAL LIQUID 20 MEQ/15 ML ONE (14:32)
[2022-11-18] MEDS ORDERED: AZITHROMYCIN IVPB 500 MG/250 ML BAG IVPB ONE (14:44)
[2022-11-18] MEDS ORDERED: ACETAMINOPHEN 1000 MG/100 ML BAG IVPB ONE (15:07)
[2022-11-18] MEDS ORDERED: ACETAMINOPHEN INJECTION 100 ML IVPB ONE (15:38)
[2022-11-18] MEDS ORDERED: BISACODYL 10 MG SUPP.RECT PR PRN (16:42)
[2022-11-18] MEDS: LACTATED RINGERS SOLUTION 1,000 ML/1,000 ML INFUS.BAG IV SCH ×2 (17:57→22:51)
[2022-11-18] MEDS ORDERED: CEFEPIME 2 GM/100 ML BAG IVPB ONE (18:56)
[2022-11-18] MEDS: CEFEPIME 2 GM in DEXTROSE 5%-WATER 100 ML IVPB SCH (18:58)
[2022-11-18] MEDS: DOXYCYCLINE INJECTION 100 MG in DEXTROSE 5%-WATER 100 ML IVPB SCH (21:05)
[2022-11-18] MEDS: diazePAM 2 MG TABLET GT SCH (21:05)
[2022-11-18] MEDS ORDERED: CEFEPIME 2 GM in DEXTROSE 5%-WATER 100 ML IVPB SCH (22:00)
[2022-11-18] MEDS ORDERED: LORATADINE GT SCH (22:00)
[2022-11-18] MEDS ORDERED: [UNRECOGNIZED DRUG - OTHER] GT SCH (22:00)
[2022-11-18] MEDS ORDERED: FAMOTIDINE 20 MG TABLET PEG SCH (22:00)
[2022-11-18] MEDS ORDERED: PATIENT'S OWN MEDICATION (NON-FORMULARY) (Multivitamin [Multivitamin] 1 EACH Tablet) GT SCH (22:00)
[2022-11-18] MEDS: FAMOTIDINE 20 MG/2.5 ML ORAL LIQUID PEG SCH (22:27)
[2022-11-18] MEDS: LORATADINE 10 MG TABLET GT SCH (22:28)
[2022-11-18] MEDS: HEPARIN NA (PORCINE) 5,000 UNITS/ML 1ML VIAL SQ SCH (22:28)
[2022-11-18] MEDS: MULTIVIT-MINERALS ORAL LIQUID PO SCH (22:28)
[2022-11-18] MEDS: CALCIUM 500MG/VIT-D 200 UNITS COMBO TABLET (FP) GT SCH (22:53)
[2022-11-19] MEDS: diazePAM 2 MG TABLET GT SCH ×3 (05:01→21:06)
[2022-11-19] MEDS: CEFEPIME 2 GM in DEXTROSE 5%-WATER 100 ML IVPB SCH ×2 (05:01→17:46)
[2022-11-19] MEDS: DOXYCYCLINE INJECTION 100 MG in DEXTROSE 5%-WATER 100 ML IVPB SCH ×2 (09:31→21:04)
[2022-11-19] MEDS: CALCIUM 500MG/VIT-D 200 UNITS COMBO TABLET (FP) GT SCH ×2 (09:31→21:05)
[2022-11-19] MEDS: HEPARIN NA (PORCINE) 5,000 UNITS/ML 1ML VIAL SQ SCH ×2 (09:31→21:05)
[2022-11-19 09:49] LABS: BASO % 0.1 % (0-2.0); EOS % 0.1 % (0-4.5); HEMOGLOBIN 10.9 GM/dL (10.7-15.3); LYMPH % 14.5 % (8-40); MCH 31.3 pg (25.7-33.7); MCHC 34.1 g/dl (32.0-36.0); MEAN CELL VOLUME 91.8 fl (80-96); MEAN PLT VOLUME 9.4 fl (7.5-11.1); MONO % 13.6 % (3.8-10.2); NEUT % 71.7 % (42.8-82.8); PLATELET COUNT 313 10^3/uL (134-434); RBC 3.48 M/mm3 (3.60-5.2); RDW 12.4 % (11.6-15.6); WHITE BLOOD COUNT 12.8 K/mm3 (4.0-10.0)
[2022-11-19 10:05] LABS: POTASSIUM 3.7 mmol/L (3.5-5.1)
[2022-11-19 10:18] LABS: BLOOD UREA NITROGEN 12.5 mg/dL (7-18); CALCIUM 8.2 mg/dL (8.5-10.1)
[2022-11-19 10:21] LABS: CREATININE 0.5 mg/dL (0.55-1.3)
[2022-11-19 11:20] VITALS: BMI 20.2
[2022-11-19] MEDS: LACTATED RINGERS SOLUTION 1,000 ML/1,000 ML INFUS.BAG IV SCH (17:40)
[2022-11-19] MEDS: ALBUTEROL SO4 2.5/IPRATROPIUM 0.5 INH SOL 3 ML VIAL.NEB. NEB PRN (18:05)
[2022-11-19] MEDS ORDERED: ACETAMINOPHEN 1000 MG/100 ML BAG IVPB ONE (20:26)
[2022-11-19] MEDS: MULTIVIT-MINERALS ORAL LIQUID PO SCH (21:04)
[2022-11-19] MEDS: LORATADINE 10 MG TABLET GT SCH (21:05)
[2022-11-19] MEDS: FAMOTIDINE 20 MG/2.5 ML ORAL LIQUID PEG SCH (21:06)
[2022-11-20] MEDS ORDERED: ACETAMINOPHEN 1000 MG/100 ML BAG IVPB ONE (02:52)
[2022-11-20] MEDS: ALBUTEROL SO4 2.5/IPRATROPIUM 0.5 INH SOL 3 ML VIAL.NEB. NEB PRN ×2 (02:56→16:37)
[2022-11-20] MEDS ORDERED: LACTATED RINGERS SOLUTION 1000 ML INFUS.BAG IV ONE (05:31)
[2022-11-20] MEDS: diazePAM 2 MG TABLET GT SCH ×3 (05:35→21:46)
[2022-11-20] MEDS: CEFEPIME 2 GM in DEXTROSE 5%-WATER 100 ML IVPB SCH (06:10)
[2022-11-20 09:46] LABS: BASO % 0.5 % (0-2.0); EOS % 0.9 % (0-4.5); HEMOGLOBIN 10.2 GM/dL (10.7-15.3); LYMPH % 17.7 % (8-40); MCH 31.2 pg (25.7-33.7); MCHC 34.2 g/dl (32.0-36.0); MEAN CELL VOLUME 91.3 fl (80-96); MEAN PLT VOLUME 9.1 fl (7.5-11.1); NEUT % 71.9 % (42.8-82.8); PLATELET COUNT 318 10^3/uL (134-434); RBC 3.28 M/mm3 (3.60-5.2); RDW 12.5 % (11.6-15.6); WHITE BLOOD COUNT 13.2 K/mm3 (4.0-10.0)
[2022-11-20 09:52] LABS: INR 1.17 (0.83-1.09); PROTHROMBIN TIME (PATIENT) 13.5 SEC (9.7-13.0)
[2022-11-20 09:53] LABS: ACTIVATED PTT 28.3 SECONDS (25.2-36.5)
[2022-11-20 10:03] LABS: POTASSIUM 3.6 mmol/L (3.5-5.1)
[2022-11-20 10:05] LABS: CALCIUM 8.3 mg/dL (8.5-10.1)
[2022-11-20 10:06] LABS: BLOOD UREA NITROGEN 16.3 mg/dL (7-18); MAGNESIUM 1.9 mg/dL (1.8-2.4)
[2022-11-20 10:09] LABS: CREATININE 0.3 mg/dL (0.55-1.3); PHOSPHOROUS 2.2 mg/dL (2.5-4.9)
[2022-11-20 10:10] LABS: BILIRUBIN,TOTAL 0.3 mg/dL (0.2-1)
[2022-11-20 10:11] LABS: TOT PROT 4.9 g/dl (6.4-8.2)
[2022-11-20 10:20] LABS: ALBUMIN 1.8 g/dl (3.4-5.0)
[2022-11-20] MEDS: CALCIUM 500MG/VIT-D 200 UNITS COMBO TABLET (FP) GT SCH ×2 (10:33→22:09)
[2022-11-20] MEDS: DOXYCYCLINE INJECTION 100 MG in DEXTROSE 5%-WATER 100 ML IVPB SCH (10:33)
[2022-11-20] MEDS: HEPARIN NA (PORCINE) 5,000 UNITS/ML 1ML VIAL SQ SCH ×2 (10:33→21:45)
[2022-11-20] MEDS ORDERED: ACETAMINOPHEN 325 MG TABLET (FP) PO PRN (12:06)
[2022-11-20] MEDS: ACETAMINOPHEN 325 MG TABLET (FP) NR PRN (12:41)
[2022-11-20] MEDS: PIPERACILLIN/TAZOB 3.375 GM 3.375 GM in DEXTROSE 5%-WATER - 50 ML IVPB SCH (16:55)
[2022-11-20] MEDS ORDERED: NAPH,MB-DB/K PH,MBDB POWDER PACKET GT ONE (17:42)
[2022-11-20] MEDS: LACTATED RINGERS SOLUTION 1,000 ML/1,000 ML INFUS.BAG IV SCH (17:52)
[2022-11-20] MEDS: MULTIVIT-MINERALS ORAL LIQUID PO SCH (21:45)
[2022-11-20] MEDS: LORATADINE 10 MG TABLET GT SCH (21:45)
[2022-11-20] MEDS: FAMOTIDINE 20 MG/2.5 ML ORAL LIQUID PEG SCH (21:47)
[2022-11-21] MEDS: PIPERACILLIN/TAZOB 3.375 GM 3.375 GM in DEXTROSE 5%-WATER - 50 ML IVPB SCH ×4 (00:49→23:00)
[2022-11-21] MEDS: ACETAMINOPHEN 325 MG TABLET (FP) NR PRN (05:29)
[2022-11-21] MEDS: diazePAM 2 MG TABLET GT SCH ×3 (06:38→22:45)
[2022-11-21] MEDS: HEPARIN NA (PORCINE) 5,000 UNITS/ML 1ML VIAL SQ SCH ×2 (09:33→22:46)
[2022-11-21] MEDS: CALCIUM 500MG/VIT-D 200 UNITS COMBO TABLET (FP) GT SCH ×2 (09:34→22:45)
[2022-11-21 09:38] LABS: BASO % 0.9 % (0-2.0); EOS % 2.9 % (0-4.5); HEMATOCRIT 33.1 % (32.4-45.2); HEMOGLOBIN 10.9 GM/dL (10.7-15.3); LYMPH % 19.9 % (8-40); MCH 30.9 pg (25.7-33.7); MEAN CELL VOLUME 93.5 fl (80-96); MEAN PLT VOLUME 9.1 fl (7.5-11.1); NEUT % 69.3 % (42.8-82.8); PLATELET COUNT 447 10^3/uL (134-434); RBC 3.54 M/mm3 (3.60-5.2); RDW 12.7 % (11.6-15.6); WHITE BLOOD COUNT 13.8 K/mm3 (4.0-10.0)
[2022-11-21 10:02] LABS: POTASSIUM 3.9 mmol/L (3.5-5.1)
[2022-11-21 10:12] LABS: BLOOD UREA NITROGEN 13.4 mg/dL (7-18); CALCIUM 8.8 mg/dL (8.5-10.1)
[2022-11-21 10:16] LABS: CREATININE 0.4 mg/dL (0.55-1.3)
[2022-11-21] MEDS ORDERED: diazePAM 2 MG TABLET GT SCH (12:20)
[2022-11-21] MEDS ORDERED: ALBUTEROL SO4 2.5/IPRATROPIUM 0.5 INH SOL 3 ML VIAL.NEB. NEB PRN (12:29)
[2022-11-21] MEDS: SCOPOLAMINE HYDROBROMIDE 1 PATCH PATCH.TD72 TD SCH (13:08)
[2022-11-21 14:56] LABS: PHOSPHOROUS 4.6 mg/dL (2.5-4.9)
[2022-11-21] MEDS ORDERED: ACETAMINOPHEN 1000 MG/100 ML BAG IVPB ONE (15:22)
[2022-11-21] MEDS ORDERED: SODIUM CHLORIDE 1,000 ML IV STA (15:23)
[2022-11-21] MEDS: LACTATED RINGERS SOLUTION 1,000 ML/1,000 ML INFUS.BAG IV SCH (16:59)
[2022-11-21] MEDS: LORATADINE 10 MG TABLET GT SCH (22:45)
[2022-11-21] MEDS: MULTIVIT-MINERALS ORAL LIQUID PO SCH (22:45)
[2022-11-21] MEDS: FAMOTIDINE 20 MG/2.5 ML ORAL LIQUID PEG SCH (22:46)
[2022-11-22] MEDS: diazePAM 2 MG TABLET GT SCH ×2 (05:13→13:49)
[2022-11-22] MEDS: PIPERACILLIN/TAZOB 3.375 GM 3.375 GM in DEXTROSE 5%-WATER - 50 ML IVPB SCH ×2 (08:47→16:30)
[2022-11-22] MEDS: LACTATED RINGERS SOLUTION 1,000 ML/1,000 ML INFUS.BAG IV SCH ×2 (08:47→16:30)
[2022-11-22] MEDS: ACETAMINOPHEN 325 MG TABLET (FP) NR PRN (08:48)
[2022-11-22 09:33] LABS: HEMATOCRIT 33.6 % (32.4-45.2); HEMOGLOBIN 11.2 GM/dL (10.7-15.3); MCH 31.1 pg (25.7-33.7); MCHC 33.3 g/dl (32.0-36.0); MEAN CELL VOLUME 93.4 fl (80-96); MEAN PLT VOLUME 8.6 fl (7.5-11.1); PLATELET COUNT 547 10^3/uL (134-434); RDW 12.5 % (11.6-15.6); WHITE BLOOD COUNT 12.4 K/mm3 (4.0-10.0)
[2022-11-22 09:54] LABS: POTASSIUM 3.7 mmol/L (3.5-5.1)
[2022-11-22 10:00] LABS: BLOOD UREA NITROGEN 10.8 mg/dL (7-18); CALCIUM 9.1 mg/dL (8.5-10.1)
[2022-11-22 10:03] LABS: CREATININE 0.3 mg/dL (0.55-1.3)
[2022-11-22 10:05] LABS: BILIRUBIN,TOTAL 0.9 mg/dL (0.2-1); TOT PROT 5.3 g/dl (6.4-8.2)
[2022-11-22] MEDS: HEPARIN NA (PORCINE) 5,000 UNITS/ML 1ML VIAL SQ SCH ×2 (11:02→23:09)
[2022-11-22] MEDS: CALCIUM 500MG/VIT-D 200 UNITS COMBO TABLET (FP) GT SCH (11:02)
[2022-11-22 11:31] LABS: ANISOCYTOSIS 0; MACROCYTOSIS 1+; ROULEAU 1+
[2022-11-22] MEDS ORDERED: BACITRACIN ZINC 15 GM TUBE TOPICAL OINTMENT TP PRN (16:06)
[2022-11-22] MEDS ORDERED: ZINC OXIDE 20% TOPICAL OINTMENT 30 GM TUBE TP PRN (16:06)
[2022-11-22] MEDS ORDERED: SIMETHICONE 40 MG/0.6 ML BOTTLE GT PRN ×2 (16:10→16:11)
[2022-11-22] MEDS: MAGNESIUM HYDROX 2400MG/30ML ORAL SUSPENSION 30 ML CUP GT SCH (17:22)
[2022-11-22] MEDS: LORATADINE 10 MG TABLET GT SCH (23:09)
[2022-11-22] MEDS: MULTIVIT-MINERALS ORAL LIQUID GT SCH (23:09)
[2022-11-22] MEDS: FAMOTIDINE 20 MG/2.5 ML ORAL LIQUID PEG SCH (23:10)
[2022-11-23] MEDS: PIPERACILLIN/TAZOB 3.375 GM 3.375 GM in DEXTROSE 5%-WATER - 50 ML IVPB SCH ×3 (00:07→15:33)
[2022-11-23] MEDS: LACTATED RINGERS SOLUTION 1,000 ML/1,000 ML INFUS.BAG IV SCH (01:58)
[2022-11-23] MEDS: HEPARIN NA (PORCINE) 5,000 UNITS/ML 1ML VIAL SQ SCH ×2 (09:52→21:24)
[2022-11-23] MEDS: DOCUSATE NA 100 MG/10 ML UNIT-DOSE CUPS GT SCH (09:53)
[2022-11-23 10:10] LABS: HEMOGLOBIN 10.4 GM/dL (10.7-15.3); MCH 31.7 pg (25.7-33.7); MCHC 34.6 g/dl (32.0-36.0); MEAN CELL VOLUME 91.8 fl (80-96); MEAN PLT VOLUME 7.9 fl (7.5-11.1); PLATELET COUNT 569 10^3/uL (134-434); RBC 3.27 M/mm3 (3.60-5.2); RDW 12.8 % (11.6-15.6); WHITE BLOOD COUNT 12.8 K/mm3 (4.0-10.0)
[2022-11-23 10:41] LABS: POTASSIUM 3.5 mmol/L (3.5-5.1)
[2022-11-23 10:42] LABS: BLOOD UREA NITROGEN 9.4 mg/dL (7-18); CALCIUM 9.1 mg/dL (8.5-10.1)
[2022-11-23 10:46] LABS: CREATININE 0.5 mg/dL (0.55-1.3)
[2022-11-23] MEDS: ACETAMINOPHEN 325 MG TABLET (FP) NR PRN (15:05)
[2022-11-23] MEDS ORDERED: LACTATED RINGERS SOLUTION 1000 ML INFUS.BAG IV ONE (15:30)
[2022-11-23] MEDS ORDERED: LACTATED RINGERS SOLUTION 1,000 ML/1,000 ML INFUS.BAG IV SCH (17:00)
[2022-11-23] MEDS: MULTIVIT-MINERALS ORAL LIQUID GT SCH (21:24)
[2022-11-23] MEDS: LORATADINE 10 MG TABLET GT SCH (21:24)
[2022-11-23] MEDS: FAMOTIDINE 20 MG/2.5 ML ORAL LIQUID PEG SCH (21:24)
[2022-11-24] MEDS: ACETAMINOPHEN 650 MG/20.3 ML ORAL SOLUTION (CUPS) GT PRN (00:59)
[2022-11-24] MEDS: PIPERACILLIN/TAZOB 3.375 GM 3.375 GM in DEXTROSE 5%-WATER - 50 ML IVPB SCH ×3 (01:01→16:59)
[2022-11-24] MEDS ORDERED: LACTATED RINGERS SOLUTION 1,000 ML/1,000 ML INFUS.BAG IV SCH (08:14)
[2022-11-24] MEDS: HEPARIN NA (PORCINE) 5,000 UNITS/ML 1ML VIAL SQ SCH ×2 (09:11→21:29)
[2022-11-24] MEDS: DOCUSATE NA 100 MG/10 ML UNIT-DOSE CUPS GT SCH (09:11)
[2022-11-24 09:54] LABS: HEMATOCRIT 30.6 % (32.4-45.2); HEMOGLOBIN 10.7 GM/dL (10.7-15.3); MCH 31.6 pg (25.7-33.7); MCHC 34.8 g/dl (32.0-36.0); MEAN CELL VOLUME 90.7 fl (80-96); MEAN PLT VOLUME 7.5 fl (7.5-11.1); PLATELET COUNT 591 10^3/uL (134-434); RBC 3.37 M/mm3 (3.60-5.2); RDW 12.8 % (11.6-15.6); WHITE BLOOD COUNT 11.4 K/mm3 (4.0-10.0)
[2022-11-24 10:16] LABS: POTASSIUM 3.2 mmol/L (3.5-5.1)
[2022-11-24 10:17] LABS: CALCIUM 9.2 mg/dL (8.5-10.1)
[2022-11-24 10:19] LABS: BLOOD UREA NITROGEN 6.6 mg/dL (7-18)
[2022-11-24 10:22] LABS: CREATININE 0.4 mg/dL (0.55-1.3)
[2022-11-24 10:24] LABS: BILIRUBIN,TOTAL 0.3 mg/dL (0.2-1); TOT PROT 5.5 g/dl (6.4-8.2)
[2022-11-24 10:39] LABS: ANISOCYTOSIS 0; MACROCYTOSIS 1+
[2022-11-24] MEDS: SCOPOLAMINE HYDROBROMIDE 1 PATCH PATCH.TD72 TD SCH ×2 (12:24→13:55)
[2022-11-24] MEDS ORDERED: POTASSIUM CHLORIDE ORAL LIQUID 20 MEQ/15 ML PO ONE (14:43)
[2022-11-24] MEDS ORDERED: diazePAM 2 MG TABLET GT PRN (15:09)
[2022-11-24] MEDS: MAGNESIUM HYDROX 2400MG/30ML ORAL SUSPENSION 30 ML CUP GT SCH (16:58)
[2022-11-24] MEDS: MULTIVIT-MINERALS ORAL LIQUID GT SCH (21:28)
[2022-11-24] MEDS: POLYETHYLENE GLYCOL (HEALTHYLAX) 3350 17 GM PACKET GT SCH (21:29)
[2022-11-24] MEDS: LORATADINE 10 MG TABLET GT SCH (21:29)
[2022-11-24] MEDS: FAMOTIDINE 20 MG/2.5 ML ORAL LIQUID PEG SCH (21:29)
[2022-11-25] MEDS: PIPERACILLIN/TAZOB 3.375 GM 3.375 GM in DEXTROSE 5%-WATER - 50 ML IVPB SCH ×3 (02:05→15:11)
[2022-11-25] MEDS: ACETAMINOPHEN 650 MG/20.3 ML ORAL SOLUTION (CUPS) GT PRN (02:13)
[2022-11-25 09:51] LABS: HEMATOCRIT 31.7 % (32.4-45.2); HEMOGLOBIN 10.9 GM/dL (10.7-15.3); MCH 32.1 pg (25.7-33.7); MCHC 34.3 g/dl (32.0-36.0); MEAN CELL VOLUME 93.5 fl (80-96); MEAN PLT VOLUME 8.3 fl (7.5-11.1); PLATELET COUNT 609 10^3/uL (134-434); RBC 3.39 M/mm3 (3.60-5.2); RDW 12.7 % (11.6-15.6); WHITE BLOOD COUNT 10.1 K/mm3 (4.0-10.0)
[2022-11-25] MEDS: POLYETHYLENE GLYCOL (HEALTHYLAX) 3350 17 GM PACKET GT SCH ×2 (09:56→22:21)
[2022-11-25] MEDS: DOCUSATE NA 100 MG/10 ML UNIT-DOSE CUPS GT SCH (09:56)
[2022-11-25] MEDS: HEPARIN NA (PORCINE) 5,000 UNITS/ML 1ML VIAL SQ SCH ×2 (09:58→22:20)
[2022-11-25] MEDS: LACTOBACILLUS ACIDOPHILUS 1 TABLET GT SCH (09:59)
[2022-11-25 10:10] LABS: POTASSIUM 3.7 mmol/L (3.5-5.1)
[2022-11-25 10:13] LABS: CALCIUM 9.3 mg/dL (8.5-10.1)
[2022-11-25 10:14] LABS: BLOOD UREA NITROGEN 10.2 mg/dL (7-18)
[2022-11-25 10:18] LABS: CREATININE 0.5 mg/dL (0.55-1.3)
[2022-11-25 10:19] LABS: BILIRUBIN,TOTAL 0.3 mg/dL (0.2-1); TOT PROT 5.6 g/dl (6.4-8.2)
[2022-11-25] MEDS: MULTIVIT-MINERALS ORAL LIQUID GT SCH (22:20)
[2022-11-25] MEDS: FAMOTIDINE 20 MG/2.5 ML ORAL LIQUID PEG SCH (22:20)
[2022-11-25] MEDS: LORATADINE 10 MG TABLET GT SCH (22:20)
[2022-11-26] MEDS: PIPERACILLIN/TAZOB 3.375 GM 3.375 GM in DEXTROSE 5%-WATER - 50 ML IVPB SCH ×3 (00:06→16:46)
[2022-11-26] MEDS: DOCUSATE NA 100 MG/10 ML UNIT-DOSE CUPS GT SCH (09:27)
[2022-11-26] MEDS: HEPARIN NA (PORCINE) 5,000 UNITS/ML 1ML VIAL SQ SCH ×2 (09:27→21:51)
[2022-11-26] MEDS: LACTOBACILLUS ACIDOPHILUS 1 TABLET GT SCH (09:28)
[2022-11-26] MEDS: POLYETHYLENE GLYCOL (HEALTHYLAX) 3350 17 GM PACKET GT SCH ×2 (09:28→21:48)
[2022-11-26 09:48] LABS: BASO % 0.5 % (0-2.0); EOS % 0.4 % (0-4.5); HEMOGLOBIN 10.9 GM/dL (10.7-15.3); LYMPH % 13.9 % (8-40); MCH 31.7 pg (25.7-33.7); MEAN CELL VOLUME 93.1 fl (80-96); MEAN PLT VOLUME 8.2 fl (7.5-11.1); MONO % 6.3 % (3.8-10.2); NEUT % 78.9 % (42.8-82.8); PLATELET COUNT 672 10^3/uL (134-434); RBC 3.44 M/mm3 (3.60-5.2); RDW 12.5 % (11.6-15.6); WHITE BLOOD COUNT 10.5 K/mm3 (4.0-10.0)
[2022-11-26 10:08] LABS: POTASSIUM 3.8 mmol/L (3.5-5.1)
[2022-11-26 10:10] LABS: BLOOD UREA NITROGEN 10.3 mg/dL (7-18); CALCIUM 9.1 mg/dL (8.5-10.1)
[2022-11-26 10:11] LABS: ALBUMIN 2.2 g/dl (3.4-5.0)
[2022-11-26 10:14] LABS: CREATININE 0.4 mg/dL (0.55-1.3)
[2022-11-26 10:15] LABS: BILIRUBIN,TOTAL 0.2 mg/dL (0.2-1)
[2022-11-26] MEDS: ALBUTEROL SO4 2.5/IPRATROPIUM 0.5 INH SOL 3 ML VIAL.NEB. NEB SCH ×3 (11:10→20:05)
[2022-11-26 14:25] VITALS: RESP 16
[2022-11-26] MEDS ORDERED: DOXAZOSIN MESYLATE 1 MG TABLET GT SCH ×2 (15:46→16:47)
[2022-11-26] MEDS ORDERED: DEXTROSE 5%-NORMAL SALINE 1,000 ML IV SCH (17:00)
[2022-11-26] MEDS: MULTIVIT-MINERALS ORAL LIQUID GT SCH (21:50)
[2022-11-26] MEDS: FAMOTIDINE 20 MG/2.5 ML ORAL LIQUID PEG SCH (21:51)
[2022-11-26] MEDS: LORATADINE 10 MG TABLET GT SCH (21:51)
[2022-11-27] MEDS: PIPERACILLIN/TAZOB 3.375 GM 3.375 GM in DEXTROSE 5%-WATER - 50 ML IVPB SCH (00:03)
[2022-11-27] MEDS ORDERED: levoFLOXacin 750 MG TABLET GT SCH (06:00)
[2022-11-27] MEDS: ALBUTEROL SO4 2.5/IPRATROPIUM 0.5 INH SOL 3 ML VIAL.NEB. NEB SCH ×2 (07:55→11:30)
[2022-11-27 10:07] LABS: HEMATOCRIT 30.2 % (32.4-45.2); HEMOGLOBIN 10.1 GM/dL (10.7-15.3); MCH 31.3 pg (25.7-33.7); MCHC 33.4 g/dl (32.0-36.0); MEAN CELL VOLUME 93.5 fl (80-96); PLATELET COUNT 617 10^3/uL (134-434); RBC 3.23 M/mm3 (3.60-5.2); RDW 12.8 % (11.6-15.6)
[2022-11-27 10:22] VITALS: BP 104/57; PULSE 85; TEMP 98.9
[2022-11-27] MEDS: LACTOBACILLUS ACIDOPHILUS 1 TABLET GT SCH (10:22)
[2022-11-27] MEDS: HEPARIN NA (PORCINE) 5,000 UNITS/ML 1ML VIAL SQ SCH (10:23)
[2022-11-27] MEDS: DOCUSATE NA 100 MG/10 ML UNIT-DOSE CUPS GT SCH (10:23)
[2022-11-27] MEDS: POLYETHYLENE GLYCOL (HEALTHYLAX) 3350 17 GM PACKET GT SCH (10:23)
[2022-11-27 10:25] LABS: POTASSIUM 3.4 mmol/L (3.5-5.1)
[2022-11-27 10:27] LABS: BLOOD UREA NITROGEN 9.3 mg/dL (7-18); MAGNESIUM 1.9 mg/dL (1.8-2.4)
[2022-11-27 10:30] LABS: CREATININE 0.3 mg/dL (0.55-1.3); PHOSPHOROUS 2.8 mg/dL (2.5-4.9)
[2022-11-27] MEDS: SCOPOLAMINE HYDROBROMIDE 1 PATCH PATCH.TD72 TD SCH (14:18)
== END 2022-11-27 14:10 | DRG 871 ==
LOC: JER 12:24 → JERBED 14:09 → J6S 19:45 → J5S 20:28
PROVIDERS: ADMIT Internal Medicine; ATTEND Internal Medicine
DX: A41.51 Sepsis due to Escherichia coli [E. coli] (principal); J18.9 Pneumonia, unspecified organism; R53.2 Functional quadriplegia; E87.1 Hypo-osmolality and hyponatremia; N13.6 Pyonephrosis; Q67.5 Congenital deformity of spine; F73 Profound intellectual disabilities; F13.20 Sedative, hypnotic or anxiolytic dependence, uncomplicated; J90 Pleural effusion, not elsewhere classified; G40.909 Epilepsy, unspecified, not intractable, without status epilepticus; G80.9 Cerebral palsy, unspecified; D72.829 Elevated white blood cell count, unspecified; E87.6 Hypokalemia; B96.20 Unspecified Escherichia coli [E. coli] as the cause of diseases classified elsewhere; I95.9 Hypotension, unspecified; Q02 Microcephaly; E04.1 Nontoxic single thyroid nodule; D35.02 Benign neoplasm of left adrenal gland; D75.838 Other thrombocytosis; N31.9 Neuromuscular dysfunction of bladder, unspecified; K80.20 Calculus of gallbladder without cholecystitis without obstruction; Z93.1 Gastrostomy status
CPT/HCPCS: 0241U-QW; 36415; 71045-TC-FY; 71250-TC; 74176-TC; 76775-TC; 76856-TC; 80048; 80053; 81003; 82550; 82553; 82803; 82962; 83605; 83735; 84100; 84484; 85025; 85027; 85610; 85730; 86850; 86900; 86901; 87040; 87070; 87077; 87081; 87086; 87186; 87205; 87899; 93005; 93010; 94640; 99285-25; J1644

== ENCOUNTER 2023-02-05 07:15 | Inpatient (IN) | payer OTHER ==
[2023-02-05 08:53] LABS: HEMATOCRIT 38.4 % (32.4-45.2); HEMOGLOBIN 13.6 GM/dL (10.7-15.3); MCH 31.3 pg (25.7-33.7); MCHC 35.5 g/dl (32.0-36.0); MEAN CELL VOLUME 88.2 fl (80-96); MEAN PLT VOLUME 8.8 fl (7.5-11.1); PLATELET COUNT 303 10^3/uL (134-434); RBC 4.35 M/mm3 (3.60-5.2); RDW 12.2 % (11.6-15.6); WHITE BLOOD COUNT 26.7 K/mm3 (4.0-10.0)
[2023-02-05 08:55] LABS: EPI CELLS 2 /uL (0-25.1); HYALINE CASTS 0 /uL (0-3.1); URINE APPEARANCE CLOUDY; URINE BACTERIA >9,000 /uL (0-1359); URINE BILIRUBIN NEGATIVE (NEGATIVE); URINE COLOR YELLOW; URINE GLUCOSE (UA) NEGATIVE (NEGATIVE); URINE KETONE NEGATIVE (NEGATIVE); URINE LEUK ESTERASE 3+ (NEGATIVE); URINE NITRITE NEGATIVE (NEGATIVE); URINE PROTEIN TRACE (NEGATIVE); URINE RBC 16 /uL (0-23.9); URINE UROBILINOGEN 0.2 mg/dL (0.2-1.0); URINE WBC 2383 /uL (0-25.8)
[2023-02-05 08:56] LABS: VENOUS BASE EXCESS 3.3 mmol/L (-2-2); VENOUS O2 SATURATION 87.1 % (70-80); VENOUS PH 7.501 (7.310-7.410)
[2023-02-05 08:58] LABS: INR 1.17 (0.83-1.09); PROTHROMBIN TIME (PATIENT) 13.5 SEC (9.7-13.0)
[2023-02-05 09:01] LABS: ACTIVATED PTT 31.4 SECONDS (25.2-36.5)
[2023-02-05 09:12] LABS: CALCIUM 9.3 mg/dL (8.5-10.1); MAGNESIUM 1.9 mg/dL (1.8-2.4)
[2023-02-05 09:13] LABS: ALBUMIN 2.9 g/dl (3.4-5.0)
[2023-02-05 09:16] LABS: CREATININE 0.4 mg/dL (0.55-1.3)
[2023-02-05 09:17] LABS: BILIRUBIN,TOTAL 0.8 mg/dL (0.2-1)
[2023-02-05] MEDS ORDERED: CEFTRIAXONE 1 GM/50 ML BAG ONE (09:21)
[2023-02-05] MEDS ORDERED: AZITHROMYCIN IVPB 500 MG in DEXTROSE 5%-WATER - 250 ML IVPB ONE (09:21)
[2023-02-05] MEDS ORDERED: AZITHROMYCIN IVPB 500 MG/250 ML BAG IVPB ONE (09:38)
[2023-02-05] MEDS ORDERED: POTASSIUM CHLORIDE ORAL LIQUID 20 MEQ/15 ML GT ONE (09:54)
[2023-02-05] MEDS ORDERED: POTASSIUM CHLORIDE ORAL LIQUID 20 MEQ/15 ML ONE (10:02)
[2023-02-05] MEDS ORDERED: ACETAMINOPHEN 1000 MG/100 ML BAG IVPB PRN (10:20)
[2023-02-05] MEDS ORDERED: SODIUM CHLORIDE 1,000 ML IV SCH (10:30)
[2023-02-05 10:48] LABS: ANISOCYTOSIS 0; MACROCYTOSIS 0
[2023-02-05] MEDS ORDERED: MAGNESIUM HYDROX 2400MG/30ML ORAL SUSPENSION 30 ML CUP ONE (11:01)
[2023-02-05] MEDS ORDERED: ENOXAPARIN NA (PORCINE) 40 MG/0.4 ML DISP.SYRIN SQ ONE (11:01)
[2023-02-05] MEDS: ENOXAPARIN NA (PORCINE) 40 MG/0.4 ML DISP.SYRIN SQ SCH (11:12)
[2023-02-05] MEDS: MAGNESIUM HYDROX 2400MG/30ML ORAL SUSPENSION 30 ML CUP GT SCH (11:12)
[2023-02-05] MEDS: LACTATED RINGERS SOLUTION 1,000 ML/1,000 ML INFUS.BAG IV SCH (11:12)
[2023-02-05] MEDS ORDERED: PIPERACILLIN/TAZOB 4.5 GM 4.5 GM/100 ML BAG IVPB ONE ×2 (14:14→21:57)
[2023-02-05] MEDS ORDERED: PIPERACILLIN/TAZOB 4.5 GM 4.5 GM in DEXTROSE 5%-WATER 100 ML IVPB SCH (15:00)
[2023-02-05] MEDS ORDERED: ACETAMINOPHEN INJECTION 100 ML IVPB ONE ×2 (15:38→22:06)
[2023-02-05] MEDS ORDERED: VANCOMYCIN 1 GRAM (PRE-DOCKED) 1,000 MG/250 ML BAG IVPB ONE ×2 (18:24→18:33)
[2023-02-05] MEDS ORDERED: VANCOMYCIN/WATER FOR INJ (PEG) 1,000 MG/200 ML BAG IVPB SCH (18:45)
[2023-02-05] MEDS ORDERED: LORATADINE 10 MG TABLET ONE (21:57)
[2023-02-05] MEDS: PIPERACILLIN/TAZOB 4.5 GM 4.5 GM in DEXTROSE 5%-WATER 100 ML IVPB SCH (22:05)
[2023-02-05] MEDS: MULTIVIT-MINERALS ORAL LIQUID GT SCH (22:21)
[2023-02-05] MEDS: FAMOTIDINE 20 MG/2.5 ML ORAL LIQUID PEG SCH (22:22)
[2023-02-05] MEDS: LORATADINE 10 MG TABLET GT SCH (22:22)
[2023-02-06] MEDS: LACTATED RINGERS SOLUTION 1,000 ML/1,000 ML INFUS.BAG IV SCH ×2 (04:19→18:26)
[2023-02-06] MEDS: PIPERACILLIN/TAZOB 4.5 GM 4.5 GM in DEXTROSE 5%-WATER 100 ML IVPB SCH ×3 (06:20→21:37)
[2023-02-06] MEDS ORDERED: INSULIN (LEVEMIR) 100 UNITS/ML UNITS SQ ONE (07:06)
[2023-02-06] MEDS: ENOXAPARIN NA (PORCINE) 40 MG/0.4 ML DISP.SYRIN SQ SCH (10:00)
[2023-02-06] MEDS ORDERED: CEFTRIAXONE 1 GM in DEXTROSE 5%-WATER - 50 ML IVPB SCH (10:00)
[2023-02-06 11:02] LABS: HEMATOCRIT 36.3 % (32.4-45.2); HEMOGLOBIN 12.7 GM/dL (10.7-15.3); MCH 31.3 pg (25.7-33.7); MCHC 35.1 g/dl (32.0-36.0); MEAN CELL VOLUME 89.1 fl (80-96); MEAN PLT VOLUME 9.2 fl (7.5-11.1); PLATELET COUNT 263 10^3/uL (134-434); RBC 4.07 M/mm3 (3.60-5.2); RDW 12.4 % (11.6-15.6); WHITE BLOOD COUNT 22.5 K/mm3 (4.0-10.0)
[2023-02-06 11:29] LABS: POTASSIUM 3.6 mmol/L (3.5-5.1)
[2023-02-06 11:32] LABS: ALBUMIN 2.5 g/dl (3.4-5.0); CALCIUM 8.7 mg/dL (8.5-10.1)
[2023-02-06 11:33] LABS: BLOOD UREA NITROGEN 11.9 mg/dL (7-18); MAGNESIUM 1.9 mg/dL (1.8-2.4)
[2023-02-06 11:36] LABS: BILIRUBIN,TOTAL 0.9 mg/dL (0.2-1); CREATININE 0.5 mg/dL (0.55-1.3)
[2023-02-06 11:37] LABS: TOT PROT 6.6 g/dl (6.4-8.2)
[2023-02-06 11:40] LABS: ANISOCYTOSIS 0; MACROCYTOSIS 0
[2023-02-06] MEDS ORDERED: diazePAM 2 MG TABLET GT PRN (18:08)
[2023-02-06] MEDS: FAMOTIDINE 20 MG/2.5 ML ORAL LIQUID PEG SCH (21:37)
[2023-02-06] MEDS: LORATADINE 10 MG TABLET GT SCH (21:37)
[2023-02-06] MEDS: MULTIVIT-MINERALS ORAL LIQUID GT SCH (21:37)
[2023-02-07] MEDS ORDERED: NAPH,MB-DB/K PH,MBDB POWDER PACKET GT ONE (04:59)
[2023-02-07] MEDS ORDERED: PIPERACILLIN/TAZOBACTAM 4.5 GM VIAL IVPB ONE (06:21)
[2023-02-07] MEDS: PIPERACILLIN/TAZOB 4.5 GM 4.5 GM in DEXTROSE 5%-WATER 100 ML IVPB SCH ×3 (06:35→21:51)
[2023-02-07] MEDS ORDERED: INSULIN (NOVOLOG) ASPART 100 UNITS/ML 10ML VIAL ONE (07:33)
[2023-02-07] MEDS: ENOXAPARIN NA (PORCINE) 40 MG/0.4 ML DISP.SYRIN SQ SCH (09:15)
[2023-02-07] MEDS: MAGNESIUM HYDROX 2400MG/30ML ORAL SUSPENSION 30 ML CUP GT SCH (09:49)
[2023-02-07 11:16] LABS: HEMATOCRIT 33.5 % (32.4-45.2); HEMOGLOBIN 11.9 GM/dL (10.7-15.3); MCH 31.5 pg (25.7-33.7); MCHC 35.6 g/dl (32.0-36.0); MEAN CELL VOLUME 88.4 fl (80-96); MEAN PLT VOLUME 9.3 fl (7.5-11.1); PLATELET COUNT 290 10^3/uL (134-434); RBC 3.78 M/mm3 (3.60-5.2); RDW 12.2 % (11.6-15.6)
[2023-02-07 11:20] LABS: POTASSIUM 3.4 mmol/L (3.5-5.1)
[2023-02-07 11:33] LABS: BLOOD UREA NITROGEN 11.4 mg/dL (7-18)
[2023-02-07 11:36] LABS: ALBUMIN 2.2 g/dl (3.4-5.0); CALCIUM 8.3 mg/dL (8.5-10.1)
[2023-02-07 11:39] LABS: CREATININE 0.3 mg/dL (0.55-1.3); PHOSPHOROUS 2.6 mg/dL (2.5-4.9)
[2023-02-07 11:41] LABS: BILIRUBIN,TOTAL 0.7 mg/dL (0.2-1); TOT PROT 6.1 g/dl (6.4-8.2)
[2023-02-07] MEDS: POTASSIUM CHLORIDE ORAL LIQUID 20 MEQ/15 ML GT ONE ×2 (17:46→18:44)
[2023-02-07] MEDS ORDERED: TUBE FEED DECLOGGING SOLUTION 12,000 UNITS GT ONE (19:02)
[2023-02-07] MEDS: MULTIVIT-MINERALS ORAL LIQUID GT SCH (21:50)
[2023-02-07] MEDS: LORATADINE 10 MG TABLET GT SCH (21:50)
[2023-02-07] MEDS: FAMOTIDINE 20 MG/2.5 ML ORAL LIQUID PEG SCH (21:51)
[2023-02-07] MEDS: VANCOMYCIN PREMIX 1.5 GM 1,500 MG/300 ML BAG IVPB SCH (22:59)
[2023-02-08] MEDS: PIPERACILLIN/TAZOB 4.5 GM 4.5 GM in DEXTROSE 5%-WATER 100 ML IVPB SCH ×3 (05:20→21:08)
[2023-02-08 09:58] LABS: HEMATOCRIT 31.2 % (32.4-45.2); HEMOGLOBIN 10.5 GM/dL (10.7-15.3); MCH 30.8 pg (25.7-33.7); MCHC 33.7 g/dl (32.0-36.0); MEAN CELL VOLUME 91.5 fl (80-96); MEAN PLT VOLUME 9.5 fl (7.5-11.1); PLATELET COUNT 289 10^3/uL (134-434); RBC 3.41 M/mm3 (3.60-5.2); RDW 12.5 % (11.6-15.6); WHITE BLOOD COUNT 13.4 K/mm3 (4.0-10.0)
[2023-02-08 10:24] LABS: POTASSIUM 3.5 mmol/L (3.5-5.1)
[2023-02-08 10:30] LABS: BLOOD UREA NITROGEN 11.2 mg/dL (7-18); CALCIUM 7.7 mg/dL (8.5-10.1)
[2023-02-08 10:33] LABS: CREATININE 0.3 mg/dL (0.55-1.3)
[2023-02-08 10:35] LABS: BILIRUBIN,TOTAL 0.5 mg/dL (0.2-1); PHOSPHOROUS 2.8 mg/dL (2.5-4.9); TOT PROT 5.6 g/dl (6.4-8.2)
[2023-02-08] MEDS: ENOXAPARIN NA (PORCINE) 40 MG/0.4 ML DISP.SYRIN SQ SCH (11:28)
[2023-02-08] MEDS ORDERED: NAPHAZOLINE/PHENIRAMINE OPHTHALMIC 15 ML BOTTLE OU PRN (16:00)
[2023-02-08] MEDS: VANCOMYCIN PREMIX 1.5 GM 1,500 MG/300 ML BAG IVPB SCH (22:16)
[2023-02-08] MEDS: MULTIVIT-MINERALS ORAL LIQUID GT SCH ×2 (22:18→23:43)
[2023-02-08] MEDS: LORATADINE 10 MG TABLET GT SCH ×3 (22:19→23:44)
[2023-02-08] MEDS: FAMOTIDINE 20 MG/2.5 ML ORAL LIQUID PEG SCH ×3 (22:19→23:44)
[2023-02-08 23:48] VITALS: BMI 25.7
[2023-02-09] MEDS: PIPERACILLIN/TAZOB 4.5 GM 4.5 GM in DEXTROSE 5%-WATER 100 ML IVPB SCH ×3 (05:41→21:26)
[2023-02-09 09:44] LABS: HEMATOCRIT 30.8 % (32.4-45.2); HEMOGLOBIN 10.9 GM/dL (10.7-15.3); MCH 31.6 pg (25.7-33.7); MCHC 35.3 g/dl (32.0-36.0); MEAN CELL VOLUME 89.6 fl (80-96); MEAN PLT VOLUME 8.7 fl (7.5-11.1); PLATELET COUNT 348 10^3/uL (134-434); RBC 3.44 M/mm3 (3.60-5.2); RDW 12.3 % (11.6-15.6); WHITE BLOOD COUNT 14.2 K/mm3 (4.0-10.0)
[2023-02-09] MEDS: ENOXAPARIN NA (PORCINE) 40 MG/0.4 ML DISP.SYRIN SQ SCH (09:52)
[2023-02-09 10:01] LABS: POTASSIUM 3.4 mmol/L (3.5-5.1)
[2023-02-09 10:08] LABS: BLOOD UREA NITROGEN 13.8 mg/dL (7-18); CALCIUM 7.9 mg/dL (8.5-10.1); MAGNESIUM 2.2 mg/dL (1.8-2.4)
[2023-02-09 10:10] LABS: CREATININE 0.3 mg/dL (0.55-1.3); PHOSPHOROUS 2.8 mg/dL (2.5-4.9)
[2023-02-09 10:12] LABS: BILIRUBIN,TOTAL 0.4 mg/dL (0.2-1); TOT PROT 6.2 g/dl (6.4-8.2)
[2023-02-09] MEDS: MAGNESIUM HYDROX 2400MG/30ML ORAL SUSPENSION 30 ML CUP GT SCH (10:15)
[2023-02-09] MEDS: FAMOTIDINE 20 MG/2.5 ML ORAL LIQUID PEG SCH (21:26)
[2023-02-09] MEDS: MULTIVIT-MINERALS ORAL LIQUID GT SCH (21:26)
[2023-02-09] MEDS: LORATADINE 10 MG TABLET GT SCH (21:27)
[2023-02-10] MEDS: PIPERACILLIN/TAZOB 4.5 GM 4.5 GM in DEXTROSE 5%-WATER 100 ML IVPB SCH ×3 (05:54→21:58)
[2023-02-10 09:20] LABS: HEMATOCRIT 32.7 % (32.4-45.2); HEMOGLOBIN 11.1 GM/dL (10.7-15.3); MCH 30.9 pg (25.7-33.7); MCHC 33.9 g/dl (32.0-36.0); MEAN CELL VOLUME 91.1 fl (80-96); MEAN PLT VOLUME 8.5 fl (7.5-11.1); PLATELET COUNT 426 10^3/uL (134-434); RBC 3.59 M/mm3 (3.60-5.2); RDW 12.1 % (11.6-15.6)
[2023-02-10 09:45] LABS: POTASSIUM 3.9 mmol/L (3.5-5.1)
[2023-02-10 10:03] LABS: CALCIUM 8.4 mg/dL (8.5-10.1)
[2023-02-10 10:06] LABS: BLOOD UREA NITROGEN 10.6 mg/dL (7-18)
[2023-02-10 10:09] LABS: TOT PROT 6.2 g/dl (6.4-8.2)
[2023-02-10 10:10] LABS: CREATININE 0.3 mg/dL (0.55-1.3)
[2023-02-10 10:13] LABS: BILIRUBIN,TOTAL 0.2 mg/dL (0.2-1)
[2023-02-10 10:52] LABS: ERYTHROCYTE SEDIMENTATION RATE 106 mm/hr (0-30)
[2023-02-10] MEDS: DEXTROSE 5%-LACTATED RINGERS 1,000 ML IV SCH (10:56)
[2023-02-10] MEDS ORDERED: INSULIN (NOVOLOG) ASPART 100 UNITS/ML 10ML VIAL ONE (21:21)
[2023-02-10] MEDS: MULTIVIT-MINERALS ORAL LIQUID GT SCH (21:58)
[2023-02-10] MEDS: FAMOTIDINE 20 MG/2.5 ML ORAL LIQUID PEG SCH (21:58)
[2023-02-10] MEDS: LORATADINE 10 MG TABLET GT SCH (21:58)
[2023-02-10] MEDS ORDERED: TUBE FEED DECLOGGING SOLUTION 12,000 UNITS GT ONE (23:30)
[2023-02-11] MEDS: FAMOTIDINE 20 MG/2.5 ML ORAL LIQUID PEG SCH ×2 (06:23→22:13)
[2023-02-11] MEDS: LORATADINE 10 MG TABLET GT SCH ×2 (06:23→22:13)
[2023-02-11] MEDS: MULTIVIT-MINERALS ORAL LIQUID GT SCH ×2 (06:23→22:13)
[2023-02-11] MEDS: PIPERACILLIN/TAZOB 4.5 GM 4.5 GM in DEXTROSE 5%-WATER 100 ML IVPB SCH ×3 (06:38→22:13)
[2023-02-11 08:26] LABS: BASO % 0.9 % (0-2.0); EOS % 7.3 % (0-4.5); HEMATOCRIT 31.1 % (32.4-45.2); HEMOGLOBIN 11.1 GM/dL (10.7-15.3); LYMPH % 30.9 % (8-40); MCH 32.1 pg (25.7-33.7); MCHC 35.8 g/dl (32.0-36.0); MEAN CELL VOLUME 89.8 fl (80-96); MEAN PLT VOLUME 8.5 fl (7.5-11.1); MONO % 12.9 % (3.8-10.2); PLATELET COUNT 522 10^3/uL (134-434); RBC 3.46 M/mm3 (3.60-5.2); RDW 12.2 % (11.6-15.6); WHITE BLOOD COUNT 8.3 K/mm3 (4.0-10.0)
[2023-02-11 08:46] LABS: POTASSIUM 4.2 mmol/L (3.5-5.1)
[2023-02-11 08:48] LABS: CALCIUM 8.1 mg/dL (8.5-10.1)
[2023-02-11 08:49] LABS: ALBUMIN 2.1 g/dl (3.4-5.0); BLOOD UREA NITROGEN 9.3 mg/dL (7-18)
[2023-02-11] MEDS: DEXTROSE 5%-LACTATED RINGERS 1,000 ML IV SCH (08:50)
[2023-02-11 08:52] LABS: CREATININE 0.3 mg/dL (0.55-1.3)
[2023-02-11 08:53] LABS: BILIRUBIN,TOTAL 0.5 mg/dL (0.2-1); TOT PROT 6.2 g/dl (6.4-8.2)
[2023-02-11] MEDS: ENOXAPARIN NA (PORCINE) 40 MG/0.4 ML DISP.SYRIN SQ SCH (09:47)
[2023-02-11] MEDS ORDERED: PIPERACILLIN/TAZOBACTAM 4.5 GM VIAL IVPB ONE (21:19)
[2023-02-12] MEDS: PIPERACILLIN/TAZOB 4.5 GM 4.5 GM in DEXTROSE 5%-WATER 100 ML IVPB SCH ×4 (07:34→19:00)
[2023-02-12] MEDS: DEXTROSE 5%-LACTATED RINGERS 1,000 ML IV SCH (09:00)
[2023-02-12 10:39] LABS: HEMATOCRIT 32.1 % (32.4-45.2); HEMOGLOBIN 11.4 GM/dL (10.7-15.3); MCH 31.8 pg (25.7-33.7); MCHC 35.6 g/dl (32.0-36.0); MEAN CELL VOLUME 89.5 fl (80-96); MEAN PLT VOLUME 8.6 fl (7.5-11.1); PLATELET COUNT 609 10^3/uL (134-434); RBC 3.59 M/mm3 (3.60-5.2)
[2023-02-12 10:43] LABS: INR 1.19 (0.83-1.09); PROTHROMBIN TIME (PATIENT) 13.8 SEC (9.7-13.0)
[2023-02-12 10:46] LABS: ACTIVATED PTT 34.1 SECONDS (25.2-36.5)
[2023-02-12 11:17] LABS: POTASSIUM 4.1 mmol/L (3.5-5.1)
[2023-02-12 11:19] LABS: BLOOD UREA NITROGEN 8.1 mg/dL (7-18); CALCIUM 8.3 mg/dL (8.5-10.1)
[2023-02-12 11:20] LABS: ALBUMIN 2.2 g/dl (3.4-5.0)
[2023-02-12 11:24] LABS: BILIRUBIN,TOTAL 0.2 mg/dL (0.2-1); CREATININE 0.3 mg/dL (0.55-1.3)
[2023-02-12 11:26] LABS: TOT PROT 6.4 g/dl (6.4-8.2)
[2023-02-12] MEDS ORDERED: PROMETHAZINE HCL 25 MG/1 ML VIAL IVPB PRN ×2 (13:30→17:18)
[2023-02-12] MEDS ORDERED: LACTATED RINGERS SOLUTION 1,000 ML IV SCH ×2 (13:30→17:18)
[2023-02-12] MEDS ORDERED: ONDANSETRON 4 MG/2 ML VIAL IVPUSH PRN ×3 (13:30→17:47)
[2023-02-12] MEDS ORDERED: ROCURONIUM BROMIDE 50 MG/5 ML SYRINGE ONE ×2 (13:53→15:25)
[2023-02-12] MEDS ORDERED: MIDAZOLAM HCL 2 MG/2 ML SINGLE DOSE VIAL ONE (13:53)
[2023-02-12] MEDS ORDERED: PROPOFOL 20 ML ONE (13:53)
[2023-02-12] MEDS ORDERED: ONDANSETRON 4 MG/2 ML VIAL ONE (13:56)
[2023-02-12] MEDS ORDERED: LIDOCAINE HCL/PF 2% SDV 5ML VIAL ONE (13:56)
[2023-02-12] MEDS ORDERED: DEXAMETHASONE SOD PHOSPHATE 4 MG/1 ML VIAL ONE ×2 (13:56→14:09)
[2023-02-12] MEDS ORDERED: BUPIVACAINE HCL/PF 0.25% (2.5MG/ML) 10 ML VIAL IJ ONE (14:17)
[2023-02-12] MEDS ORDERED: INDOCYANINE GREEN 25 MG/10 ML VIAL IVPUSH ONE (14:42)
[2023-02-12] MEDS ORDERED: ACETAMINOPHEN 650 MG/20.3 ML ORAL SOLUTION (CUPS) PO PRN (17:18)
[2023-02-12] MEDS ORDERED: TRANEXAMIC ACID 1000 MG/10 ML VIAL IVPUSH ONE (17:18)
[2023-02-12] MEDS ORDERED: NAPHAZOLINE/PHENIRAMINE OPHTHALMIC 15 ML BOTTLE OU PRN (17:18)
[2023-02-12] MEDS: SODIUM CHLORIDE 1,000 ML IV SCH (20:49)
[2023-02-12 21:15] LABS: HEMATOCRIT 25.6 % (32.4-45.2); HEMOGLOBIN 8.8 GM/dL (10.7-15.3); MCH 31.1 pg (25.7-33.7); MCHC 34.6 g/dl (32.0-36.0); MEAN CELL VOLUME 90.1 fl (80-96); MEAN PLT VOLUME 8.1 fl (7.5-11.1); PLATELET COUNT 620 10^3/uL (134-434); RBC 2.84 M/mm3 (3.60-5.2); RDW 12.1 % (11.6-15.6); WHITE BLOOD COUNT 22.1 K/mm3 (4.0-10.0)
[2023-02-12 21:23] LABS: INR 1.21 (0.83-1.09)
[2023-02-12 21:45] LABS: POTASSIUM 3.6 mmol/L (3.5-5.1)
[2023-02-12 21:47] LABS: CALCIUM 7.3 mg/dL (8.5-10.1)
[2023-02-12 21:48] LABS: ALBUMIN 1.9 g/dl (3.4-5.0); BLOOD UREA NITROGEN 9.3 mg/dL (7-18)
[2023-02-12 21:51] LABS: CREATININE 0.3 mg/dL (0.55-1.3)
[2023-02-12 21:52] LABS: BILIRUBIN,TOTAL 0.4 mg/dL (0.2-1); TOT PROT 5.2 g/dl (6.4-8.2)
[2023-02-12] MEDS: LORATADINE 10 MG TABLET GT SCH (23:32)
[2023-02-12] MEDS: FAMOTIDINE 20 MG/2.5 ML ORAL LIQUID PEG SCH (23:32)
[2023-02-13] MEDS: PIPERACILLIN/TAZOB 4.5 GM 4.5 GM in DEXTROSE 5%-WATER 100 ML IVPB SCH ×3 (03:27→17:54)
[2023-02-13 03:41] LABS: BASO % 0.1 % (0-2.0); HEMATOCRIT 23.9 % (32.4-45.2); HEMOGLOBIN 8.3 GM/dL (10.7-15.3); LYMPH % 10.6 % (8-40); MCH 31.4 pg (25.7-33.7); MCHC 34.8 g/dl (32.0-36.0); MEAN CELL VOLUME 90.1 fl (80-96); MEAN PLT VOLUME 8.1 fl (7.5-11.1); MONO % 8.4 % (3.8-10.2); NEUT % 80.9 % (42.8-82.8); PLATELET COUNT 630 10^3/uL (134-434); RBC 2.65 M/mm3 (3.60-5.2); RDW 12.3 % (11.6-15.6); WHITE BLOOD COUNT 18.6 K/mm3 (4.0-10.0)
[2023-02-13 07:47] LABS: HEMATOCRIT 23.3 % (32.4-45.2); HEMOGLOBIN 8.2 GM/dL (10.7-15.3); MCH 31.7 pg (25.7-33.7); MCHC 35.3 g/dl (32.0-36.0); MEAN CELL VOLUME 89.6 fl (80-96); MEAN PLT VOLUME 8.2 fl (7.5-11.1); PLATELET COUNT 600 10^3/uL (134-434); RDW 12.1 % (11.6-15.6); WHITE BLOOD COUNT 15.7 K/mm3 (4.0-10.0)
[2023-02-13 08:09] LABS: POTASSIUM 3.6 mmol/L (3.5-5.1)
[2023-02-13 08:16] LABS: ALBUMIN 1.9 g/dl (3.4-5.0); BLOOD UREA NITROGEN 7.8 mg/dL (7-18); CALCIUM 7.4 mg/dL (8.5-10.1); MAGNESIUM 1.8 mg/dL (1.8-2.4)
[2023-02-13 08:18] LABS: BILIRUBIN,TOTAL 0.6 mg/dL (0.2-1); CREATININE 0.3 mg/dL (0.55-1.3); PHOSPHOROUS 2.4 mg/dL (2.5-4.9); TOT PROT 5.2 g/dl (6.4-8.2)
[2023-02-13] MEDS: DOCUSATE NA 100 MG/10 ML UNIT-DOSE CUPS GT SCH (11:25)
[2023-02-13] MEDS ORDERED: BISACODYL 10 MG SUPP.RECT PR ONE (13:29)
[2023-02-13] MEDS ORDERED: ONDANSETRON 4 MG/2 ML VIAL IVPUSH PRN (17:13)
[2023-02-13] MEDS: SODIUM CHLORIDE 1,000 ML IV SCH (17:53)
[2023-02-13] MEDS: DEXTROSE 5%-0.45% SALINE 1,000 ML IV SCH (20:29)
[2023-02-13] MEDS: FAMOTIDINE 20 MG/2.5 ML ORAL LIQUID PEG SCH (21:34)
[2023-02-13] MEDS: LORATADINE 10 MG TABLET GT SCH (21:34)
[2023-02-14] MEDS ORDERED: METOPROLOL TARTRATE 5 MG/5 ML VIAL IVPUSH ONE (00:15)
[2023-02-14] MEDS: dilTIAZem HCL 30 MG TABLET GT SCH ×5 (00:23→23:03)
[2023-02-14 00:33] LABS: BASO % 0.8 % (0-2.0); EOS % 0.2 % (0-4.5); HEMATOCRIT 21.7 % (32.4-45.2); HEMOGLOBIN 7.6 GM/dL (10.7-15.3); LYMPH % 19.2 % (8-40); MCH 31.3 pg (25.7-33.7); MCHC 34.9 g/dl (32.0-36.0); MEAN CELL VOLUME 89.6 fl (80-96); MEAN PLT VOLUME 7.9 fl (7.5-11.1); MONO % 9.2 % (3.8-10.2); NEUT % 70.6 % (42.8-82.8); PLATELET COUNT 608 10^3/uL (134-434); RBC 2.42 M/mm3 (3.60-5.2); RDW 12.5 % (11.6-15.6); WHITE BLOOD COUNT 14.8 K/mm3 (4.0-10.0)
[2023-02-14 01:08] LABS: CHLORIDE 113 mmol/L (98-107); SODIUM 148 mmol/L (136-145)
[2023-02-14 01:10] LABS: ALBUMIN 2.1 g/dl (3.4-5.0); BLOOD UREA NITROGEN 3.9 mg/dL (7-18); CALCIUM 7.2 mg/dL (8.5-10.1); CO2 26 mmol/L (21-32); GLUCOSE,RANDOM 121 mg/dL (74-106); MAGNESIUM 1.9 mg/dL (1.8-2.4)
[2023-02-14 01:13] LABS: CREATININE 0.3 mg/dL (0.55-1.3); PHOSPHOROUS 1.4 mg/dL (2.5-4.9); SGOT/AST 34 U/L (15-37); SGPT/ALT 43 U/L (13-61)
[2023-02-14 01:15] LABS: BILIRUBIN,TOTAL 0.2 mg/dL (0.2-1); TOT PROT 5.6 g/dl (6.4-8.2)
[2023-02-14 01:16] LABS: ALK PHOS 125 U/L (45-117)
[2023-02-14 01:25] LABS: ANION GAP 8 MMOL/L (8-16); POTASSIUM 2.7 mmol/L (3.5-5.1)
[2023-02-14] MEDS ORDERED: MAGNESIUM SULF 50% (8.12 MEQ/2 ML-1 GM VIAL) IVPB ONE (02:30)
[2023-02-14] MEDS: KCL 10 MEQ IVPB 10 MEQ/100 ML INFUS.BAG IVPB SCH ×5 (02:41→11:19)
[2023-02-14] MEDS: PIPERACILLIN/TAZOB 4.5 GM 4.5 GM in DEXTROSE 5%-WATER 100 ML IVPB SCH ×3 (03:11→19:43)
[2023-02-14 03:25] LABS: CHLORIDE 113 mmol/L (98-107); SODIUM 147 mmol/L (136-145)
[2023-02-14 03:26] LABS: CALCIUM 7.1 mg/dL (8.5-10.1)
[2023-02-14 03:27] LABS: BLOOD UREA NITROGEN 3.9 mg/dL (7-18); CO2 25 mmol/L (21-32); GLUCOSE,RANDOM 117 mg/dL (74-106); MAGNESIUM 1.8 mg/dL (1.8-2.4)
[2023-02-14 03:30] LABS: CREATININE 0.2 mg/dL (0.55-1.3); PHOSPHOROUS 1.4 mg/dL (2.5-4.9); SGOT/AST 40 U/L (15-37); SGPT/ALT 42 U/L (13-61)
[2023-02-14 03:32] LABS: BILIRUBIN,TOTAL 0.2 mg/dL (0.2-1); TOT PROT 5.5 g/dl (6.4-8.2)
[2023-02-14 03:33] LABS: ALK PHOS 133 U/L (45-117)
[2023-02-14 03:49] LABS: ANION GAP 8 MMOL/L (8-16); POTASSIUM 2.7 mmol/L (3.5-5.1)
[2023-02-14] MEDS ORDERED: POTASSIUM CHLORIDE ORAL LIQUID 20 MEQ/15 ML PO ONE (04:22)
[2023-02-14] MEDS ORDERED: POTASSIUM CHLORIDE ORAL LIQUID 20 MEQ/15 ML GT ONE (04:27)
[2023-02-14] MEDS ORDERED: NAPH,MB-DB/K PH,MBDB POWDER PACKET PO SCH (04:28)
[2023-02-14] MEDS: NAPH,MB-DB/K PH,MBDB POWDER PACKET GT SCH ×3 (05:14→23:02)
[2023-02-14 08:24] LABS: HEMATOCRIT 18.5 % (32.4-45.2); MCH 31.8 pg (25.7-33.7); MEAN CELL VOLUME 90.9 fl (80-96); PLATELET COUNT 567 10^3/uL (134-434); RBC 2.04 M/mm3 (3.60-5.2); RDW 12.1 % (11.6-15.6); WHITE BLOOD COUNT 13.4 K/mm3 (4.0-10.0)
[2023-02-14 08:37] LABS: HEMOGLOBIN 6.5 GM/dL (10.7-15.3)
[2023-02-14 08:54] LABS: CHLORIDE 112 mmol/L (98-107); POTASSIUM 3.5 mmol/L (3.5-5.1); SODIUM 145 mmol/L (136-145)
[2023-02-14 09:02] LABS: CREATININE 0.2 mg/dL (0.55-1.3)
[2023-02-14 09:03] LABS: ANION GAP 6 MMOL/L (8-16); CO2 27 mmol/L (21-32); GLUCOSE,RANDOM 130 mg/dL (74-106); SGPT/ALT 36 U/L (13-61)
[2023-02-14 09:04] LABS: BILIRUBIN,TOTAL 0.3 mg/dL (0.2-1); SGOT/AST 25 U/L (15-37); TOT PROT 5.2 g/dl (6.4-8.2)
[2023-02-14 09:05] LABS: ALK PHOS 122 U/L (45-117)
[2023-02-14 09:16] LABS: BLOOD UREA NITROGEN 2.8 mg/dL (7-18); CALCIUM 6.8 mg/dL (8.5-10.1)
[2023-02-14 10:29] LABS: RETICULOCYTES 2.01 % (0.5-1.5)
[2023-02-14 10:36] LABS: PHOSPHOROUS 1.2 mg/dL (2.5-4.9)
[2023-02-14] MEDS: DOCUSATE NA 100 MG/10 ML UNIT-DOSE CUPS GT SCH (10:36)
[2023-02-14] MEDS: ACETAMINOPHEN 650 MG/20.3 ML ORAL SOLUTION (CUPS) GT PRN (14:46)
[2023-02-14 19:32] LABS: INR 1.2 (0.83-1.09); PROTHROMBIN TIME (PATIENT) 13.9 SEC (9.7-13.0)
[2023-02-14] MEDS: DEXTROSE 5%-0.45% SALINE 1,000 ML IV SCH (20:01)
[2023-02-14] MEDS: LORATADINE 10 MG TABLET GT SCH (23:02)
[2023-02-14] MEDS: FAMOTIDINE 20 MG/2.5 ML ORAL LIQUID PEG SCH (23:02)
[2023-02-14 23:10] LABS: HEMATOCRIT 23.6 % (32.4-45.2); HEMOGLOBIN 8.4 GM/dL (10.7-15.3); MCH 30.8 pg (25.7-33.7); MCHC 35.4 g/dl (32.0-36.0); MEAN PLT VOLUME 7.9 fl (7.5-11.1); PLATELET COUNT 596 10^3/uL (134-434); RBC 2.71 M/mm3 (3.60-5.2); RDW 15.3 % (11.6-15.6); WHITE BLOOD COUNT 12.1 K/mm3 (4.0-10.0)
[2023-02-14 23:35] LABS: POTASSIUM 3.4 mmol/L (3.5-5.1)
[2023-02-14 23:39] LABS: ALBUMIN 2.1 g/dl (3.4-5.0); CALCIUM 7.1 mg/dL (8.5-10.1)
[2023-02-14 23:40] LABS: BLOOD UREA NITROGEN 3.7 mg/dL (7-18)
[2023-02-14 23:42] LABS: CREATININE 0.3 mg/dL (0.55-1.3)
[2023-02-14 23:44] LABS: TOT PROT 5.7 g/dl (6.4-8.2)
[2023-02-14 23:47] LABS: BILIRUBIN,TOTAL 2.7 mg/dL (0.2-1)
[2023-02-15] MEDS: PIPERACILLIN/TAZOB 4.5 GM 4.5 GM in DEXTROSE 5%-WATER 100 ML IVPB SCH ×3 (01:27→17:24)
[2023-02-15] MEDS: NAPH,MB-DB/K PH,MBDB POWDER PACKET GT SCH ×3 (05:47→22:16)
[2023-02-15] MEDS: dilTIAZem HCL 30 MG TABLET GT SCH ×3 (05:47→17:24)
[2023-02-15 09:04] LABS: HEMOGLOBIN 8.4 GM/dL (10.7-15.3); MCH 31.6 pg (25.7-33.7); MCHC 36.4 g/dl (32.0-36.0); MEAN CELL VOLUME 86.8 fl (80-96); MEAN PLT VOLUME 8.2 fl (7.5-11.1); PLATELET COUNT 606 10^3/uL (134-434); RBC 2.65 M/mm3 (3.60-5.2); RDW 15.3 % (11.6-15.6); WHITE BLOOD COUNT 10.5 K/mm3 (4.0-10.0)
[2023-02-15 09:11] LABS: POTASSIUM 3.4 mmol/L (3.5-5.1)
[2023-02-15 09:21] LABS: ALBUMIN 2.1 g/dl (3.4-5.0); BILIRUBIN,TOTAL 1.1 mg/dL (0.2-1); BLOOD UREA NITROGEN 4.6 mg/dL (7-18); CALCIUM 7.1 mg/dL (8.5-10.1); TOT PROT 5.7 g/dl (6.4-8.2)
[2023-02-15 09:22] LABS: PHOSPHOROUS 2.1 mg/dL (2.5-4.9)
[2023-02-15 09:23] LABS: MAGNESIUM 2.1 mg/dL (1.8-2.4)
[2023-02-15 09:24] LABS: CREATININE 0.2 mg/dL (0.55-1.3)
[2023-02-15] MEDS: DOCUSATE NA 100 MG/10 ML UNIT-DOSE CUPS GT SCH (09:48)
[2023-02-15] MEDS ORDERED: POTASSIUM CHLORIDE ORAL LIQUID 20 MEQ/15 ML PO ONE (15:19)
[2023-02-15] MEDS ORDERED: POTASSIUM CHLORIDE ORAL LIQUID 20 MEQ/15 ML GT ONE (15:29)
[2023-02-15] MEDS ORDERED: DEXTROSE 5%-0.45% SALINE 1,000 ML IV SCH (18:32)
[2023-02-15 21:53] LABS: BASO % 0.4 % (0-2.0); EOS % 6.7 % (0-4.5); HEMATOCRIT 24.2 % (32.4-45.2); HEMOGLOBIN 8.4 GM/dL (10.7-15.3); MCH 30.8 pg (25.7-33.7); MCHC 34.7 g/dl (32.0-36.0); MEAN CELL VOLUME 88.8 fl (80-96); MEAN PLT VOLUME 7.8 fl (7.5-11.1); MONO % 7.4 % (3.8-10.2); NEUT % 53.5 % (42.8-82.8); PLATELET COUNT 704 10^3/uL (134-434); RBC 2.72 M/mm3 (3.60-5.2); RDW 15.2 % (11.6-15.6); WHITE BLOOD COUNT 11.2 K/mm3 (4.0-10.0)
[2023-02-15] MEDS: FAMOTIDINE 20 MG/2.5 ML ORAL LIQUID PEG SCH (22:15)
[2023-02-15] MEDS: LORATADINE 10 MG TABLET GT SCH (22:16)
[2023-02-16] MEDS: dilTIAZem HCL 30 MG TABLET GT SCH ×4 (00:52→17:25)
[2023-02-16] MEDS: PIPERACILLIN/TAZOB 4.5 GM 4.5 GM in DEXTROSE 5%-WATER 100 ML IVPB SCH ×3 (01:19→17:25)
[2023-02-16] MEDS: NAPH,MB-DB/K PH,MBDB POWDER PACKET GT SCH ×3 (06:12→21:40)
[2023-02-16 08:21] LABS: BASO % 0.5 % (0-2.0); EOS % 5.3 % (0-4.5); HEMATOCRIT 24.1 % (32.4-45.2); HEMOGLOBIN 8.6 GM/dL (10.7-15.3); MCH 31.4 pg (25.7-33.7); MCHC 35.8 g/dl (32.0-36.0); MEAN CELL VOLUME 87.6 fl (80-96); MEAN PLT VOLUME 8.1 fl (7.5-11.1); MONO % 7.3 % (3.8-10.2); NEUT % 62.9 % (42.8-82.8); PLATELET COUNT 732 10^3/uL (134-434); RBC 2.75 M/mm3 (3.60-5.2); RDW 15.1 % (11.6-15.6); WHITE BLOOD COUNT 10.8 K/mm3 (4.0-10.0)
[2023-02-16 08:50] LABS: PH,URINE 6.5 (5.0-8.0); URINE APPEARANCE CLEAR; URINE BILIRUBIN NEGATIVE (NEGATIVE); URINE COLOR YELLOW; URINE GLUCOSE (UA) NEGATIVE (NEGATIVE); URINE KETONE NEGATIVE (NEGATIVE); URINE LEUK ESTERASE NEGATIVE (NEGATIVE); URINE NITRITE NEGATIVE (NEGATIVE); URINE PROTEIN NEGATIVE (NEGATIVE)
[2023-02-16 08:52] LABS: POTASSIUM 3.9 mmol/L (3.5-5.1)
[2023-02-16 09:01] LABS: BLOOD UREA NITROGEN 4.1 mg/dL (7-18); CALCIUM 7.8 mg/dL (8.5-10.1); PHOSPHOROUS 2.9 mg/dL (2.5-4.9)
[2023-02-16 09:02] LABS: BILIRUBIN,TOTAL 0.4 mg/dL (0.2-1); MAGNESIUM 1.9 mg/dL (1.8-2.4); TOT PROT 5.5 g/dl (6.4-8.2)
[2023-02-16 09:03] LABS: CREATININE 0.3 mg/dL (0.55-1.3)
[2023-02-16] MEDS: DOCUSATE NA 100 MG/10 ML UNIT-DOSE CUPS GT SCH (10:00)
[2023-02-16] MEDS: ACETAMINOPHEN 650 MG/20.3 ML ORAL SOLUTION (CUPS) GT PRN (16:41)
[2023-02-16] MEDS: LORATADINE 10 MG TABLET GT SCH (21:40)
[2023-02-16] MEDS: SCOPOLAMINE HYDROBROMIDE 1 PATCH PATCH.TD72 TD SCH (21:40)
[2023-02-16] MEDS: FAMOTIDINE 20 MG/2.5 ML ORAL LIQUID PEG SCH (21:42)
[2023-02-17] MEDS: dilTIAZem HCL 30 MG TABLET GT SCH ×4 (00:03→17:36)
[2023-02-17] MEDS: PIPERACILLIN/TAZOB 4.5 GM 4.5 GM in DEXTROSE 5%-WATER 100 ML IVPB SCH ×3 (01:01→17:36)
[2023-02-17] MEDS: NAPH,MB-DB/K PH,MBDB POWDER PACKET GT SCH (06:31)
[2023-02-17 07:28] LABS: HEMOGLOBIN 8.1 GM/dL (10.7-15.3); MCH 31.2 pg (25.7-33.7); MCHC 35.3 g/dl (32.0-36.0); MEAN CELL VOLUME 88.4 fl (80-96); PLATELET COUNT 819 10^3/uL (134-434); RBC 2.61 M/mm3 (3.60-5.2); RDW 14.9 % (11.6-15.6); WHITE BLOOD COUNT 8.9 K/mm3 (4.0-10.0)
[2023-02-17 07:47] LABS: POTASSIUM 3.2 mmol/L (3.5-5.1)
[2023-02-17 07:54] LABS: CALCIUM 7.8 mg/dL (8.5-10.1)
[2023-02-17 07:55] LABS: BLOOD UREA NITROGEN 3.3 mg/dL (7-18); MAGNESIUM 1.8 mg/dL (1.8-2.4)
[2023-02-17 07:58] LABS: CREATININE 0.2 mg/dL (0.55-1.3); PHOSPHOROUS 3.6 mg/dL (2.5-4.9)
[2023-02-17 07:59] LABS: BILIRUBIN,TOTAL 0.6 mg/dL (0.2-1); TOT PROT 5.2 g/dl (6.4-8.2)
[2023-02-17] MEDS ORDERED: POTASSIUM CHLORIDE ORAL LIQUID 20 MEQ/15 ML GT ONE ×2 (08:31→12:00)
[2023-02-17] MEDS ORDERED: MAGNESIUM SULF 50% (8.12 MEQ/2 ML-1 GM VIAL) IVPB ONE (08:32)
[2023-02-17] MEDS: DOCUSATE NA 100 MG/10 ML UNIT-DOSE CUPS GT SCH (09:19)
[2023-02-17] MEDS: ZINC SULFATE 220 MG CAPSULE (FP) PO SCH (15:26)
[2023-02-17] MEDS: ASCORBIC ACID 500 MG TABLET (FP) PO SCH ×2 (15:26→21:01)
[2023-02-17] MEDS: LORATADINE 10 MG TABLET GT SCH (21:01)
[2023-02-17] MEDS: FAMOTIDINE 20 MG/2.5 ML ORAL LIQUID PEG SCH (21:01)
[2023-02-18] MEDS: dilTIAZem HCL 30 MG TABLET GT SCH ×5 (00:12→23:43)
[2023-02-18] MEDS: PIPERACILLIN/TAZOB 4.5 GM 4.5 GM in DEXTROSE 5%-WATER 100 ML IVPB SCH ×3 (02:00→17:09)
[2023-02-18] MEDS: ACETAMINOPHEN 650 MG/20.3 ML ORAL SOLUTION (CUPS) GT PRN ×2 (07:56→17:08)
[2023-02-18 08:09] LABS: HEMATOCRIT 24.6 % (32.4-45.2); HEMOGLOBIN 8.4 GM/dL (10.7-15.3); MCH 30.5 pg (25.7-33.7); MEAN CELL VOLUME 89.7 fl (80-96); MEAN PLT VOLUME 7.9 fl (7.5-11.1); PLATELET COUNT 828 10^3/uL (134-434); RBC 2.74 M/mm3 (3.60-5.2); RDW 14.5 % (11.6-15.6); WHITE BLOOD COUNT 9.6 K/mm3 (4.0-10.0)
[2023-02-18 08:22] LABS: POTASSIUM 3.7 mmol/L (3.5-5.1)
[2023-02-18 08:30] LABS: ALBUMIN 1.9 g/dl (3.4-5.0); BLOOD UREA NITROGEN 5.8 mg/dL (7-18); CALCIUM 7.9 mg/dL (8.5-10.1); MAGNESIUM 1.9 mg/dL (1.8-2.4)
[2023-02-18 08:32] LABS: CREATININE 0.3 mg/dL (0.55-1.3)
[2023-02-18 08:33] LABS: PHOSPHOROUS 3.1 mg/dL (2.5-4.9)
[2023-02-18 08:34] LABS: BILIRUBIN,TOTAL 0.4 mg/dL (0.2-1); TOT PROT 5.4 g/dl (6.4-8.2)
[2023-02-18] MEDS: ASCORBIC ACID 500 MG TABLET (FP) PO SCH ×2 (10:13→22:50)
[2023-02-18] MEDS: ZINC SULFATE 220 MG CAPSULE (FP) PO SCH (10:13)
[2023-02-18] MEDS: DOCUSATE NA 100 MG/10 ML UNIT-DOSE CUPS GT SCH (10:14)
[2023-02-18] MEDS: MULTIVIT-MINERALS ORAL LIQUID PO SCH (13:23)
[2023-02-18] MEDS: LORATADINE 10 MG TABLET GT SCH (22:50)
[2023-02-18] MEDS: FAMOTIDINE 20 MG/2.5 ML ORAL LIQUID PEG SCH (22:50)
[2023-02-19] MEDS: PIPERACILLIN/TAZOB 4.5 GM 4.5 GM in DEXTROSE 5%-WATER 100 ML IVPB SCH ×3 (01:18→18:40)
[2023-02-19] MEDS: ACETAMINOPHEN 650 MG/20.3 ML ORAL SOLUTION (CUPS) GT PRN (06:38)
[2023-02-19] MEDS: dilTIAZem HCL 30 MG TABLET GT SCH ×4 (06:38→23:44)
[2023-02-19 08:45] LABS: HEMATOCRIT 26.4 % (32.4-45.2); HEMOGLOBIN 9.1 GM/dL (10.7-15.3); MCH 30.6 pg (25.7-33.7); MCHC 34.4 g/dl (32.0-36.0); MEAN CELL VOLUME 88.8 fl (80-96); MEAN PLT VOLUME 7.8 fl (7.5-11.1); PLATELET COUNT 901 10^3/uL (134-434); RBC 2.97 M/mm3 (3.60-5.2); RDW 14.8 % (11.6-15.6); WHITE BLOOD COUNT 11.5 K/mm3 (4.0-10.0)
[2023-02-19 09:07] LABS: POTASSIUM 3.6 mmol/L (3.5-5.1)
[2023-02-19 09:09] LABS: CALCIUM 8.1 mg/dL (8.5-10.1)
[2023-02-19 09:10] LABS: BLOOD UREA NITROGEN 4.3 mg/dL (7-18); MAGNESIUM 1.9 mg/dL (1.8-2.4)
[2023-02-19 09:13] LABS: CREATININE 0.3 mg/dL (0.55-1.3); PHOSPHOROUS 3.2 mg/dL (2.5-4.9)
[2023-02-19] MEDS: ASCORBIC ACID 500 MG TABLET (FP) PO SCH ×2 (09:46→21:08)
[2023-02-19] MEDS: ZINC SULFATE 220 MG CAPSULE (FP) PO SCH (09:46)
[2023-02-19] MEDS: DOCUSATE NA 100 MG/10 ML UNIT-DOSE CUPS GT SCH (09:46)
[2023-02-19] MEDS: MULTIVIT-MINERALS ORAL LIQUID PO SCH (09:48)
[2023-02-19] MEDS: SCOPOLAMINE HYDROBROMIDE 1 PATCH PATCH.TD72 TD SCH (20:26)
[2023-02-19] MEDS: FAMOTIDINE 20 MG/2.5 ML ORAL LIQUID PEG SCH (21:08)
[2023-02-19] MEDS: LORATADINE 10 MG TABLET GT SCH (21:08)
[2023-02-20] MEDS: PIPERACILLIN/TAZOB 4.5 GM 4.5 GM in DEXTROSE 5%-WATER 100 ML IVPB SCH ×3 (01:07→17:10)
[2023-02-20] MEDS: dilTIAZem HCL 30 MG TABLET GT SCH ×3 (06:16→17:09)
[2023-02-20 09:04] LABS: BASO % 0.9 % (0-2.0); EOS % 2.9 % (0-4.5); HEMATOCRIT 25.6 % (32.4-45.2); LYMPH % 24.9 % (8-40); MCH 31.6 pg (25.7-33.7); MCHC 35.3 g/dl (32.0-36.0); MEAN CELL VOLUME 89.6 fl (80-96); MEAN PLT VOLUME 7.8 fl (7.5-11.1); MONO % 10.3 % (3.8-10.2); PLATELET COUNT 901 10^3/uL (134-434); RBC 2.86 M/mm3 (3.60-5.2); RDW 14.8 % (11.6-15.6); WHITE BLOOD COUNT 9.3 K/mm3 (4.0-10.0)
[2023-02-20 09:40] LABS: POTASSIUM 3.8 mmol/L (3.5-5.1)
[2023-02-20 09:43] LABS: CALCIUM 8.1 mg/dL (8.5-10.1)
[2023-02-20 09:44] LABS: ALBUMIN 2.2 g/dl (3.4-5.0); BLOOD UREA NITROGEN 5.9 mg/dL (7-18)
[2023-02-20 09:47] LABS: CREATININE 0.3 mg/dL (0.55-1.3)
[2023-02-20 09:48] LABS: BILIRUBIN,TOTAL 0.4 mg/dL (0.2-1)
[2023-02-20] MEDS: ZINC SULFATE 220 MG CAPSULE (FP) PO SCH (10:51)
[2023-02-20] MEDS: MULTIVIT-MINERALS ORAL LIQUID PO SCH (10:51)
[2023-02-20] MEDS: ASCORBIC ACID 500 MG TABLET (FP) PO SCH ×2 (10:51→21:27)
[2023-02-20] MEDS: DOCUSATE NA 100 MG/10 ML UNIT-DOSE CUPS GT SCH (10:51)
[2023-02-20] MEDS: HEPARIN NA (PORCINE) 5,000 UNITS/ML 1ML VIAL SQ SCH (21:27)
[2023-02-20] MEDS: FAMOTIDINE 20 MG/2.5 ML ORAL LIQUID PEG SCH (21:27)
[2023-02-20] MEDS: LORATADINE 10 MG TABLET GT SCH (21:27)
[2023-02-21] MEDS: dilTIAZem HCL 30 MG TABLET GT SCH ×5 (00:01→23:18)
[2023-02-21] MEDS: PIPERACILLIN/TAZOB 4.5 GM 4.5 GM in DEXTROSE 5%-WATER 100 ML IVPB SCH ×3 (01:16→17:09)
[2023-02-21 07:27] LABS: BASO % 1.3 % (0-2.0); EOS % 3.6 % (0-4.5); HEMATOCRIT 25.4 % (32.4-45.2); HEMOGLOBIN 8.6 GM/dL (10.7-15.3); MCH 30.6 pg (25.7-33.7); MCHC 33.8 g/dl (32.0-36.0); MEAN CELL VOLUME 90.5 fl (80-96); MEAN PLT VOLUME 7.9 fl (7.5-11.1); NEUT % 47.1 % (42.8-82.8); PLATELET COUNT 786 10^3/uL (134-434); RBC 2.81 M/mm3 (3.60-5.2); WHITE BLOOD COUNT 7.7 K/mm3 (4.0-10.0)
[2023-02-21 07:38] LABS: POTASSIUM 3.4 mmol/L (3.5-5.1)
[2023-02-21 07:44] LABS: ALBUMIN 2.1 g/dl (3.4-5.0); BLOOD UREA NITROGEN 7.1 mg/dL (7-18); CALCIUM 8.3 mg/dL (8.5-10.1)
[2023-02-21 07:47] LABS: CREATININE 0.4 mg/dL (0.55-1.3)
[2023-02-21 07:48] LABS: TOT PROT 5.6 g/dl (6.4-8.2)
[2023-02-21 07:49] LABS: BILIRUBIN,TOTAL 0.4 mg/dL (0.2-1)
[2023-02-21] MEDS ORDERED: POTASSIUM PHOSPHATE 15 MM in DEXTROSE 5%-WATER - 250 ML IVPB ONE (09:00)
[2023-02-21] MEDS: MULTIVIT-MINERALS ORAL LIQUID PO SCH (10:07)
[2023-02-21] MEDS: DOCUSATE NA 100 MG/10 ML UNIT-DOSE CUPS GT SCH (10:07)
[2023-02-21] MEDS: ZINC SULFATE 220 MG CAPSULE (FP) PO SCH (10:08)
[2023-02-21] MEDS: ASCORBIC ACID 500 MG TABLET (FP) PO SCH ×2 (10:08→22:35)
[2023-02-21] MEDS ORDERED: ACETAMINOPHEN 650 MG/20.3 ML ORAL SOLUTION (CUPS) GT ONE (19:08)
[2023-02-21] MEDS: LORATADINE 10 MG TABLET GT SCH (22:34)
[2023-02-21] MEDS: FAMOTIDINE 20 MG/2.5 ML ORAL LIQUID PEG SCH (23:17)
[2023-02-22] MEDS: PIPERACILLIN/TAZOB 4.5 GM 4.5 GM in DEXTROSE 5%-WATER 100 ML IVPB SCH ×3 (02:29→17:58)
[2023-02-22] MEDS: dilTIAZem HCL 30 MG TABLET GT SCH ×3 (06:13→17:57)
[2023-02-22] MEDS: HEPARIN NA (PORCINE) 5,000 UNITS/ML 1ML VIAL SQ SCH ×3 (06:13→22:02)
[2023-02-22 09:03] LABS: MCH 30.1 pg (25.7-33.7); MCHC 33.4 g/dl (32.0-36.0); MEAN CELL VOLUME 90.3 fl (80-96); MEAN PLT VOLUME 7.6 fl (7.5-11.1); PLATELET COUNT 813 10^3/uL (134-434); RBC 2.65 M/mm3 (3.60-5.2); RDW 14.5 % (11.6-15.6)
[2023-02-22 09:26] LABS: POTASSIUM 3.7 mmol/L (3.5-5.1)
[2023-02-22 09:28] LABS: CALCIUM 8.4 mg/dL (8.5-10.1)
[2023-02-22 09:29] LABS: ALBUMIN 2.2 g/dl (3.4-5.0); BLOOD UREA NITROGEN 5.6 mg/dL (7-18)
[2023-02-22 09:32] LABS: CREATININE 0.4 mg/dL (0.55-1.3)
[2023-02-22 09:33] LABS: TOT PROT 5.8 g/dl (6.4-8.2)
[2023-02-22 09:34] LABS: BILIRUBIN,TOTAL 0.3 mg/dL (0.2-1)
[2023-02-22 09:38] LABS: ANISOCYTOSIS 0; HELMET CELLS 0; HOWELL-JOLLY BODIES 0; MACROCYTOSIS 0; OVALOCYTE 0; ROULEAU 0; SICKELED CELLS 0; TARGET CELLS 0; TEAR DROP CELLS 0; TOXIC GRANULATION 0
[2023-02-22] MEDS: MULTIVIT-MINERALS ORAL LIQUID PO SCH (10:55)
[2023-02-22] MEDS: ASCORBIC ACID 500 MG TABLET (FP) PO SCH ×2 (10:56→22:04)
[2023-02-22] MEDS: ZINC SULFATE 220 MG CAPSULE (FP) PO SCH (10:56)
[2023-02-22] MEDS: DOCUSATE NA 100 MG/10 ML UNIT-DOSE CUPS GT SCH (10:57)
[2023-02-22] MEDS ORDERED: ONDANSETRON 4 MG/2 ML VIAL IVPUSH PRN (19:29)
[2023-02-22] MEDS ORDERED: NAPHAZOLINE/PHENIRAMINE OPHTHALMIC 15 ML BOTTLE OU PRN (19:29)
[2023-02-22] MEDS ORDERED: ACETAMINOPHEN 650 MG/20.3 ML ORAL SOLUTION (CUPS) GT PRN (19:29)
[2023-02-22] MEDS ORDERED: SCOPOLAMINE HYDROBROMIDE 1 PATCH PATCH.TD72 TD SCH (20:00)
[2023-02-22] MEDS ORDERED: LORATADINE 10 MG TABLET GT SCH (22:00)
[2023-02-22] MEDS ORDERED: FAMOTIDINE 20 MG/2.5 ML ORAL LIQUID PEG SCH (22:00)
[2023-02-22] MEDS: BACITRACIN ZINC 15 GM TUBE TOPICAL OINTMENT TP SCH (22:03)
[2023-02-23] MEDS: dilTIAZem HCL 30 MG TABLET GT SCH ×4 (00:43→17:11)
[2023-02-23] MEDS: PIPERACILLIN/TAZOB 4.5 GM 4.5 GM in DEXTROSE 5%-WATER 100 ML IVPB SCH ×3 (02:05→17:11)
[2023-02-23] MEDS: ASCORBIC ACID 500 MG TABLET (FP) PO SCH (09:54)
[2023-02-23] MEDS ORDERED: ZINC SULFATE 220 MG CAPSULE (FP) PO SCH (10:00)
[2023-02-23] MEDS ORDERED: MULTIVIT-MINERALS ORAL LIQUID PO SCH (10:00)
[2023-02-23] MEDS ORDERED: DOCUSATE NA 100 MG/10 ML UNIT-DOSE CUPS GT SCH (10:00)
[2023-02-23] MEDS: BACITRACIN ZINC 15 GM TUBE TOPICAL OINTMENT TP SCH ×2 (10:00→21:59)
[2023-02-23] MEDS ORDERED: SUCCINYLCHOLINE CHLORIDE 200 MG/10 ML SYRINGE ONE (12:11)
[2023-02-23] MEDS ORDERED: PROPOFOL 20 ML ONE (12:11)
[2023-02-23] MEDS ORDERED: LIDOCAINE HCL/PF 2% SDV 5ML VIAL ONE (12:38)
[2023-02-23] MEDS ORDERED: ONDANSETRON 4 MG/2 ML VIAL ONE (12:40)
[2023-02-23] MEDS ORDERED: DEXAMETHASONE SOD PHOSPHATE 4 MG/1 ML VIAL ONE (12:40)
[2023-02-23] MEDS ORDERED: IOVERSOL 300 MG/ML ML IV ONE (12:50)
[2023-02-23] MEDS ORDERED: ONDANSETRON 4 MG/2 ML VIAL IVPUSH PRN ×2 (13:26→14:29)
[2023-02-23] MEDS ORDERED: SODIUM CHLORIDE 1,000 ML IV SCH (13:30)
[2023-02-23] MEDS ORDERED: NAPHAZOLINE/PHENIRAMINE OPHTHALMIC 15 ML BOTTLE OU PRN (14:29)
[2023-02-23] MEDS: ACETAMINOPHEN 650 MG/20.3 ML ORAL SOLUTION (CUPS) GT PRN (17:12)
[2023-02-23] MEDS: LORATADINE 10 MG TABLET GT SCH (21:58)
[2023-02-23] MEDS: ASCORBIC ACID 500 MG/5 ML UNIT DOSE CUP GT SCH (21:58)
[2023-02-23] MEDS: HEPARIN NA (PORCINE) 5,000 UNITS/ML 1ML VIAL SQ SCH (21:58)
[2023-02-23] MEDS: FAMOTIDINE 20 MG/2.5 ML ORAL LIQUID PEG SCH (21:59)
[2023-02-24] MEDS: dilTIAZem HCL 30 MG TABLET GT SCH ×4 (00:02→18:10)
[2023-02-24] MEDS: PIPERACILLIN/TAZOB 4.5 GM 4.5 GM in DEXTROSE 5%-WATER 100 ML IVPB SCH ×3 (01:46→18:10)
[2023-02-24] MEDS: HEPARIN NA (PORCINE) 5,000 UNITS/ML 1ML VIAL SQ SCH ×3 (06:21→21:23)
[2023-02-24 08:10] LABS: HEMATOCRIT 26.4 % (32.4-45.2); HEMOGLOBIN 9.1 GM/dL (10.7-15.3); MCHC 34.3 g/dl (32.0-36.0); MEAN CELL VOLUME 90.3 fl (80-96); MEAN PLT VOLUME 7.8 fl (7.5-11.1); PLATELET COUNT 785 10^3/uL (134-434); RBC 2.92 M/mm3 (3.60-5.2); RDW 14.7 % (11.6-15.6); WHITE BLOOD COUNT 8.4 K/mm3 (4.0-10.0)
[2023-02-24 08:25] LABS: POTASSIUM 3.5 mmol/L (3.5-5.1)
[2023-02-24 08:36] LABS: ALBUMIN 2.3 g/dl (3.4-5.0); BLOOD UREA NITROGEN 6.7 mg/dL (7-18); CALCIUM 8.5 mg/dL (8.5-10.1)
[2023-02-24 08:39] LABS: CREATININE 0.5 mg/dL (0.55-1.3); PHOSPHOROUS 1.9 mg/dL (2.5-4.9)
[2023-02-24 08:40] LABS: TOT PROT 6.2 g/dl (6.4-8.2)
[2023-02-24 08:43] LABS: BILIRUBIN,TOTAL 0.4 mg/dL (0.2-1)
[2023-02-24] MEDS: DOCUSATE NA 100 MG/10 ML UNIT-DOSE CUPS GT SCH (09:46)
[2023-02-24] MEDS: ASCORBIC ACID 500 MG/5 ML UNIT DOSE CUP GT SCH ×2 (09:46→21:23)
[2023-02-24] MEDS: ZINC SULFATE 220 MG CAPSULE (FP) GT SCH (09:47)
[2023-02-24] MEDS: MULTIVIT-MINERALS ORAL LIQUID GT SCH (09:48)
[2023-02-24] MEDS: BACITRACIN ZINC 15 GM TUBE TOPICAL OINTMENT TP SCH ×2 (09:48→21:23)
[2023-02-24] MEDS: NAPH,MB-DB/K PH,MBDB POWDER PACKET GT SCH ×2 (13:55→21:23)
[2023-02-24] MEDS: FAMOTIDINE 20 MG/2.5 ML ORAL LIQUID PEG SCH (21:23)
[2023-02-24] MEDS: LORATADINE 10 MG TABLET GT SCH (21:23)
[2023-02-25] MEDS: dilTIAZem HCL 30 MG TABLET GT SCH ×4 (00:19→18:12)
[2023-02-25] MEDS: PIPERACILLIN/TAZOB 4.5 GM 4.5 GM in DEXTROSE 5%-WATER 100 ML IVPB SCH ×3 (02:05→18:08)
[2023-02-25] MEDS: NAPH,MB-DB/K PH,MBDB POWDER PACKET GT SCH (06:18)
[2023-02-25] MEDS: HEPARIN NA (PORCINE) 5,000 UNITS/ML 1ML VIAL SQ SCH ×3 (06:18→21:50)
[2023-02-25] MEDS: DOCUSATE NA 100 MG/10 ML UNIT-DOSE CUPS GT SCH (09:52)
[2023-02-25] MEDS: ASCORBIC ACID 500 MG/5 ML UNIT DOSE CUP GT SCH ×2 (09:52→21:50)
[2023-02-25] MEDS: MULTIVIT-MINERALS ORAL LIQUID GT SCH (09:53)
[2023-02-25] MEDS: ZINC SULFATE 220 MG CAPSULE (FP) GT SCH (09:54)
[2023-02-25] MEDS: BACITRACIN ZINC 15 GM TUBE TOPICAL OINTMENT TP SCH ×2 (10:00→21:49)
[2023-02-25] MEDS: SCOPOLAMINE HYDROBROMIDE 1 PATCH PATCH.TD72 TD SCH (21:00)
[2023-02-25] MEDS: LORATADINE 10 MG TABLET GT SCH (21:50)
[2023-02-25] MEDS: FAMOTIDINE 20 MG/2.5 ML ORAL LIQUID PEG SCH (21:50)
[2023-02-26] MEDS: dilTIAZem HCL 30 MG TABLET GT SCH ×4 (00:32→17:13)
[2023-02-26] MEDS: PIPERACILLIN/TAZOB 4.5 GM 4.5 GM in DEXTROSE 5%-WATER 100 ML IVPB SCH ×2 (01:32→09:28)
[2023-02-26] MEDS: HEPARIN NA (PORCINE) 5,000 UNITS/ML 1ML VIAL SQ SCH ×3 (05:09→22:04)
[2023-02-26] MEDS: DOCUSATE NA 100 MG/10 ML UNIT-DOSE CUPS GT SCH (09:28)
[2023-02-26] MEDS: ZINC SULFATE 220 MG CAPSULE (FP) GT SCH (09:29)
[2023-02-26] MEDS: ASCORBIC ACID 500 MG/5 ML UNIT DOSE CUP GT SCH ×2 (09:29→22:03)
[2023-02-26] MEDS: MULTIVIT-MINERALS ORAL LIQUID GT SCH (09:29)
[2023-02-26] MEDS: BACITRACIN ZINC 15 GM TUBE TOPICAL OINTMENT TP SCH ×2 (09:30→22:02)
[2023-02-26 10:06] LABS: HEMATOCRIT 28.9 % (32.4-45.2); HEMOGLOBIN 10.1 GM/dL (10.7-15.3); MCH 31.1 pg (25.7-33.7); MEAN CELL VOLUME 88.7 fl (80-96); MEAN PLT VOLUME 7.5 fl (7.5-11.1); PLATELET COUNT 645 10^3/uL (134-434); RBC 3.26 M/mm3 (3.60-5.2); RDW 15.2 % (11.6-15.6); WHITE BLOOD COUNT 8.8 K/mm3 (4.0-10.0)
[2023-02-26 10:46] LABS: POTASSIUM 4.3 mmol/L (3.5-5.1)
[2023-02-26 10:56] LABS: ALBUMIN 2.3 g/dl (3.4-5.0); BLOOD UREA NITROGEN 10.8 mg/dL (7-18); CALCIUM 8.7 mg/dL (8.5-10.1); MAGNESIUM 2.3 mg/dL (1.8-2.4)
[2023-02-26 11:00] LABS: CREATININE 0.5 mg/dL (0.55-1.3); PHOSPHOROUS 3.1 mg/dL (2.5-4.9)
[2023-02-26 11:02] LABS: BILIRUBIN,TOTAL 0.2 mg/dL (0.2-1); TOT PROT 6.1 g/dl (6.4-8.2)
[2023-02-26] MEDS: LORATADINE 10 MG TABLET GT SCH (22:03)
[2023-02-26] MEDS: FAMOTIDINE 20 MG/2.5 ML ORAL LIQUID PEG SCH (22:07)
[2023-02-27] MEDS: dilTIAZem HCL 30 MG TABLET GT SCH ×4 (00:10→17:56)
[2023-02-27] MEDS: HEPARIN NA (PORCINE) 5,000 UNITS/ML 1ML VIAL SQ SCH ×3 (05:51→21:58)
[2023-02-27] MEDS: MULTIVIT-MINERALS ORAL LIQUID GT SCH (09:55)
[2023-02-27] MEDS: ASCORBIC ACID 500 MG/5 ML UNIT DOSE CUP GT SCH ×2 (09:55→21:58)
[2023-02-27] MEDS: ZINC SULFATE 220 MG CAPSULE (FP) GT SCH (09:55)
[2023-02-27] MEDS: DOCUSATE NA 100 MG/10 ML UNIT-DOSE CUPS GT SCH (09:55)
[2023-02-27] MEDS: BACITRACIN ZINC 15 GM TUBE TOPICAL OINTMENT TP SCH ×2 (09:57→21:58)
[2023-02-27 10:01] LABS: HEMATOCRIT 29.3 % (32.4-45.2); HEMOGLOBIN 9.9 GM/dL (10.7-15.3); MCH 30.4 pg (25.7-33.7); MCHC 33.7 g/dl (32.0-36.0); MEAN CELL VOLUME 90.2 fl (80-96); MEAN PLT VOLUME 8.1 fl (7.5-11.1); PLATELET COUNT 623 10^3/uL (134-434); RBC 3.24 M/mm3 (3.60-5.2); RDW 15.7 % (11.6-15.6); WHITE BLOOD COUNT 9.5 K/mm3 (4.0-10.0)
[2023-02-27 10:27] LABS: POTASSIUM 4.4 mmol/L (3.5-5.1)
[2023-02-27 10:32] LABS: ALBUMIN 2.3 g/dl (3.4-5.0); CALCIUM 8.9 mg/dL (8.5-10.1)
[2023-02-27 10:33] LABS: BLOOD UREA NITROGEN 14.9 mg/dL (7-18); MAGNESIUM 2.3 mg/dL (1.8-2.4)
[2023-02-27 10:36] LABS: CREATININE 0.5 mg/dL (0.55-1.3)
[2023-02-27 10:37] LABS: BILIRUBIN,TOTAL 0.2 mg/dL (0.2-1); PHOSPHOROUS 4.4 mg/dL (2.5-4.9); TOT PROT 6.3 g/dl (6.4-8.2)
[2023-02-27] MEDS: FAMOTIDINE 20 MG/2.5 ML ORAL LIQUID PEG SCH (21:57)
[2023-02-27] MEDS: LORATADINE 10 MG TABLET GT SCH (21:58)
[2023-02-28] MEDS: dilTIAZem HCL 30 MG TABLET GT SCH ×4 (00:30→19:09)
[2023-02-28] MEDS: HEPARIN NA (PORCINE) 5,000 UNITS/ML 1ML VIAL SQ SCH ×3 (06:46→22:23)
[2023-02-28] MEDS: MULTIVIT-MINERALS ORAL LIQUID GT SCH (09:45)
[2023-02-28] MEDS: ZINC SULFATE 220 MG CAPSULE (FP) GT SCH (09:49)
[2023-02-28] MEDS: ASCORBIC ACID 500 MG/5 ML UNIT DOSE CUP GT SCH ×2 (09:49→22:24)
[2023-02-28] MEDS: BACITRACIN ZINC 15 GM TUBE TOPICAL OINTMENT TP SCH ×2 (09:49→22:22)
[2023-02-28] MEDS: DOCUSATE NA 100 MG/10 ML UNIT-DOSE CUPS GT SCH (09:49)
[2023-02-28 10:25] LABS: HEMATOCRIT 31.9 % (32.4-45.2); HEMOGLOBIN 10.5 GM/dL (10.7-15.3); MCHC 33.1 g/dl (32.0-36.0); MEAN CELL VOLUME 90.7 fl (80-96); PLATELET COUNT 678 10^3/uL (134-434); RBC 3.51 M/mm3 (3.60-5.2); RDW 15.5 % (11.6-15.6); WHITE BLOOD COUNT 7.9 K/mm3 (4.0-10.0)
[2023-02-28 10:42] LABS: POTASSIUM 4.4 mmol/L (3.5-5.1)
[2023-02-28] MEDS: ACETAMINOPHEN 650 MG/20.3 ML ORAL SOLUTION (CUPS) GT PRN (10:46)
[2023-02-28 10:58] LABS: BLOOD UREA NITROGEN 16.4 mg/dL (7-18)
[2023-02-28 11:02] LABS: ALBUMIN 2.7 g/dl (3.4-5.0)
[2023-02-28 11:03] LABS: BILIRUBIN,TOTAL 0.2 mg/dL (0.2-1); CREATININE 0.6 mg/dL (0.55-1.3)
[2023-02-28 11:05] LABS: CALCIUM 9.4 mg/dL (8.5-10.1); TOT PROT 7.2 g/dl (6.4-8.2)
[2023-02-28] MEDS: SCOPOLAMINE HYDROBROMIDE 1 PATCH PATCH.TD72 TD SCH (22:22)
[2023-02-28] MEDS: LORATADINE 10 MG TABLET GT SCH (22:23)
[2023-02-28] MEDS: FAMOTIDINE 20 MG/2.5 ML ORAL LIQUID PEG SCH (22:24)
[2023-03-01] MEDS: dilTIAZem HCL 30 MG TABLET GT SCH ×4 (00:49→17:18)
[2023-03-01] MEDS: HEPARIN NA (PORCINE) 5,000 UNITS/ML 1ML VIAL SQ SCH ×3 (06:13→21:34)
[2023-03-01] MEDS: BACITRACIN ZINC 15 GM TUBE TOPICAL OINTMENT TP SCH ×2 (09:43→21:35)
[2023-03-01] MEDS: ASCORBIC ACID 500 MG/5 ML UNIT DOSE CUP GT SCH ×2 (09:43→21:34)
[2023-03-01] MEDS: ZINC SULFATE 220 MG CAPSULE (FP) GT SCH (09:43)
[2023-03-01] MEDS: MULTIVIT-MINERALS ORAL LIQUID GT SCH (09:43)
[2023-03-01] MEDS: DOCUSATE NA 100 MG/10 ML UNIT-DOSE CUPS GT SCH (09:43)
[2023-03-01 10:39] LABS: HEMATOCRIT 32.5 % (32.4-45.2); HEMOGLOBIN 11.2 GM/dL (10.7-15.3); MCH 30.8 pg (25.7-33.7); MCHC 34.5 g/dl (32.0-36.0); MEAN CELL VOLUME 89.4 fl (80-96); MEAN PLT VOLUME 7.9 fl (7.5-11.1); PLATELET COUNT 627 10^3/uL (134-434); RBC 3.64 M/mm3 (3.60-5.2); RDW 15.2 % (11.6-15.6); WHITE BLOOD COUNT 7.8 K/mm3 (4.0-10.0)
[2023-03-01 11:10] LABS: POTASSIUM 4.2 mmol/L (3.5-5.1)
[2023-03-01 11:19] LABS: ALBUMIN 2.8 g/dl (3.4-5.0); BLOOD UREA NITROGEN 17.5 mg/dL (7-18); CALCIUM 9.2 mg/dL (8.5-10.1); MAGNESIUM 2.3 mg/dL (1.8-2.4)
[2023-03-01 11:20] LABS: CREATININE 0.5 mg/dL (0.55-1.3)
[2023-03-01 11:22] LABS: BILIRUBIN,TOTAL 0.2 mg/dL (0.2-1); PHOSPHOROUS 3.7 mg/dL (2.5-4.9); TOT PROT 7.4 g/dl (6.4-8.2)
[2023-03-01 14:02] VITALS: RESP 18
[2023-03-01] MEDS: LORATADINE 10 MG TABLET GT SCH (21:34)
[2023-03-01] MEDS: FAMOTIDINE 20 MG/2.5 ML ORAL LIQUID PEG SCH (21:35)
[2023-03-02] MEDS: dilTIAZem HCL 30 MG TABLET GT SCH ×3 (00:50→11:58)
[2023-03-02] MEDS: HEPARIN NA (PORCINE) 5,000 UNITS/ML 1ML VIAL SQ SCH ×2 (07:12→13:21)
[2023-03-02] MEDS: ZINC SULFATE 220 MG CAPSULE (FP) GT SCH (09:56)
[2023-03-02] MEDS: MULTIVIT-MINERALS ORAL LIQUID GT SCH (09:56)
[2023-03-02] MEDS: ASCORBIC ACID 500 MG/5 ML UNIT DOSE CUP GT SCH (09:56)
[2023-03-02] MEDS: DOCUSATE NA 100 MG/10 ML UNIT-DOSE CUPS GT SCH (09:56)
[2023-03-02] MEDS: BACITRACIN ZINC 15 GM TUBE TOPICAL OINTMENT TP SCH (09:57)
[2023-03-02 11:33] LABS: HEMATOCRIT 31.7 % (32.4-45.2); HEMOGLOBIN 10.8 GM/dL (10.7-15.3); MCHC 33.9 g/dl (32.0-36.0); MEAN CELL VOLUME 91.2 fl (80-96); MEAN PLT VOLUME 8.2 fl (7.5-11.1); PLATELET COUNT 626 10^3/uL (134-434); RBC 3.48 M/mm3 (3.60-5.2); RDW 15.8 % (11.6-15.6)
[2023-03-02 11:53] LABS: POTASSIUM 4.2 mmol/L (3.5-5.1)
[2023-03-02 12:39] LABS: ALBUMIN 2.8 g/dl (3.4-5.0); BILIRUBIN,TOTAL 0.2 mg/dL (0.2-1)
[2023-03-02 12:40] LABS: CALCIUM 9.4 mg/dL (8.5-10.1); TOT PROT 7.2 g/dl (6.4-8.2)
[2023-03-02 12:41] LABS: BLOOD UREA NITROGEN 18.1 mg/dL (7-18); CREATININE 0.5 mg/dL (0.55-1.3)
[2023-03-02 14:53] VITALS: BP 116/69; PULSE 85; TEMP 98.1
[2023-03-03 18:07] LABS: SIZE 3x3 mm (.)
== END 2023-03-02 15:34 | DRG 853 ==
LOC: JER 07:15 → JERBED 10:06 → J6S 23:16 → J4W 02-12 22:54 → J6S 02-22 18:31
PROVIDERS: ADMIT Internal Medicine; ATTEND Internal Medicine
PROC: 0FT44ZZ Resection of Gallbladder, Percutaneous Endoscopic Approach (ICD-10-PCS; principal; 2023-02-12 15:00)
PROC: 0DP67UZ Removal of Feeding Device from Stomach, Via Natural or Artificial Opening (ICD-10-PCS; 2023-02-13)
PROC: 0DH67UZ Insertion of Feeding Device into Stomach, Via Natural or Artificial Opening (ICD-10-PCS; 2023-02-13)
PROC: 30233N1 Transfusion of Nonautologous Red Blood Cells into Peripheral Vein, Percutaneous Approach (ICD-10-PCS; 2023-02-14)
PROC: 0T768DZ Dilation of Right Ureter with Intraluminal Device, Via Natural or Artificial Opening Endoscopic (ICD-10-PCS; 2023-02-23 10:30)
PROC: 0TF68ZZ Fragmentation in Right Ureter, Via Natural or Artificial Opening Endoscopic (ICD-10-PCS; 2023-02-23 10:30)
DX: A41.59 Other Gram-negative sepsis (principal); J69.0 Pneumonitis due to inhalation of food and vomit; R53.2 Functional quadriplegia; N12 Tubulo-interstitial nephritis, not specified as acute or chronic; N39.0 Urinary tract infection, site not specified; K81.0 Acute cholecystitis; D62 Acute posthemorrhagic anemia; K56.7 Ileus, unspecified; K94.23 Gastrostomy malfunction; N13.6 Pyonephrosis; K91.89 Other postprocedural complications and disorders of digestive system; E87.6 Hypokalemia; J06.9 Acute upper respiratory infection, unspecified; G40.909 Epilepsy, unspecified, not intractable, without status epilepticus; G80.9 Cerebral palsy, unspecified; R65.20 Severe sepsis without septic shock; I48.91 Unspecified atrial fibrillation; B96.89 Other specified bacterial agents as the cause of diseases classified elsewhere; E83.42 Hypomagnesemia; R09.02 Hypoxemia; D75.839 Thrombocytosis, unspecified; E83.39 Other disorders of phosphorus metabolism; Y83.9 Surgical procedure, unspecified as the cause of abnormal reaction of the patient, or of later complication, without mention of misadventure at the time of the procedure
CPT/HCPCS: 0241U-QW; 36415; 36430; 71045-TC-FY; 74018-TC-FY; 74176-TC; 74177-TC; 76000-TC-FY; 80048; 80053; 81003; 82360; 82607; 82728; 82746; 82803; 82962; 83540; 83550; 83605; 83735; 84100; 84443; 84484; 85025; 85027; 85045; 85610; 85651; 85730; 86140; 86850; 86900; 86901; 86922; 87040; 87070; 87086; 87186; 87205; 87635; 88300-TC; 88304-TC; 93005; 93010; 93306-TC; 94760; 99285-25; C1758; C2617; J1644; P9058; Q9967

== ENCOUNTER 2023-04-07 10:08 | Inpatient (IN) | payer OTHER ==
[2023-04-07] MEDS ORDERED: VANCOMYCIN 1,000 MG in DEXTROSE 5%-WATER - 250 ML IVPB ONE (10:31)
[2023-04-07] MEDS ORDERED: PIPERACILLIN/TAZOB 4.5 GM 4.5 GM in DEXTROSE 5%-WATER 100 ML IVPB ONE (10:31)
[2023-04-07] MEDS ORDERED: SODIUM CHLORIDE 0.9% 500 ML INFUS.BAG IV ONE (10:32)
[2023-04-07 10:56] LABS: EPI CELLS 1 /uL (0-25.1); HYALINE CASTS 0 /uL (0-3.1); URINE APPEARANCE CLOUDY; URINE BACTERIA 5849 /uL (0-1359); URINE BILIRUBIN NEGATIVE (NEGATIVE); URINE COLOR YELLOW; URINE GLUCOSE (UA) NEGATIVE (NEGATIVE); URINE KETONE NEGATIVE (NEGATIVE); URINE LEUK ESTERASE 3+ (NEGATIVE); URINE NITRITE POSITIVE (NEGATIVE); URINE PROTEIN NEGATIVE (NEGATIVE); URINE RBC 23 /uL (0-23.9); URINE UROBILINOGEN 0.2 mg/dL (0.2-1.0); URINE WBC 132 /uL (0-25.8)
[2023-04-07] MEDS ORDERED: PIPERACILLIN/TAZOB 4.5 GM 4.5 GM/100 ML BAG IVPB ONE (11:47)
[2023-04-07] MEDS ORDERED: VANCOMYCIN 1 GRAM (PRE-DOCKED) 1,000 MG/250 ML BAG IVPB ONE (11:47)
[2023-04-07 12:05] LABS: VENOUS BASE EXCESS 1.5 mmol/L (-2-2); VENOUS O2 SATURATION 65.3 % (70-80); VENOUS PH 7.414 (7.310-7.410)
[2023-04-07 13:11] LABS: BASO % 0.5 % (0-2.0); EOS % 1.1 % (0-4.5); HEMATOCRIT 42.6 % (32.4-45.2); HEMOGLOBIN 14.6 GM/dL (10.7-15.3); LYMPH % 24.2 % (8-40); MCH 30.8 pg (25.7-33.7); MCHC 34.4 g/dl (32.0-36.0); MEAN CELL VOLUME 89.6 fl (80-96); MEAN PLT VOLUME 9.5 fl (7.5-11.1); MONO % 9.4 % (3.8-10.2); NEUT % 64.8 % (42.8-82.8); RBC 4.75 M/mm3 (3.60-5.2); RDW 14.4 % (11.6-15.6); WHITE BLOOD COUNT 5.6 K/mm3 (4.0-10.0)
[2023-04-07 13:18] LABS: CHLORIDE 103 mmol/L (98-107); POTASSIUM 4.5 mmol/L (3.5-5.1); SODIUM 135 mmol/L (136-145)
[2023-04-07 13:20] LABS: ANION GAP 5 mmol/L (4-13); BLOOD UREA NITROGEN 12.7 mg/dL (7-18); CALCIUM 9.1 mg/dL (8.5-10.1); CO2 28 mmol/L (21-32); GLUCOSE,RANDOM 103 mg/dL (74-106)
[2023-04-07 13:21] LABS: ALBUMIN 3.3 g/dl (3.4-5.0)
[2023-04-07 13:23] LABS: CREATININE 0.6 mg/dL (0.55-1.3); SGOT/AST 75 U/L (15-37); SGPT/ALT 27 U/L (13-61)
[2023-04-07 13:25] LABS: BILIRUBIN,TOTAL 0.5 mg/dL (0.2-1); TOT PROT 7.7 g/dl (6.4-8.2)
[2023-04-07 13:26] LABS: ALK PHOS 136 U/L (45-117)
[2023-04-07 13:54] LABS: PLATELET COUNT 325 10^3/uL (134-434)
[2023-04-07] MEDS ORDERED: SODIUM CHLORIDE NASAL SPRAY 44 ML BOTTLE NS PRN (14:10)
[2023-04-07] MEDS ORDERED: diazePAM 2 MG TABLET GT PRN (14:10)
[2023-04-07] MEDS ORDERED: NAPHAZOLINE/PHENIRAMINE OPHTHALMIC 15 ML BOTTLE OU PRN (14:10)
[2023-04-07] MEDS ORDERED: diphenhydrAMINE HCL 12.5 MG/5 ML UNIT-DOSE CUPS GT PRN (14:10)
[2023-04-07] MEDS ORDERED: dilTIAZem HCL 30 MG TABLET ONE ×2 (18:40→22:49)
[2023-04-07] MEDS: dilTIAZem HCL 30 MG TABLET GT SCH (18:57)
[2023-04-07] MEDS ORDERED: ACETAMINOPHEN 500 MG TABLET (FP) GT PRN (19:05)
[2023-04-07] MEDS ORDERED: CHOLECALCIFEROL (VIT D3) 1,000 UNIT (25 MCG) TABLET ONE (22:49)
[2023-04-07] MEDS ORDERED: FAMOTIDINE 20 MG TABLET ONE (22:49)
[2023-04-07] MEDS: FAMOTIDINE 20 MG TABLET NGT SCH (22:50)
[2023-04-07] MEDS: CHOLECALCIFEROL (VIT D3) 1,000 UNIT (25 MCG) TABLET GT SCH (22:50)
[2023-04-07] MEDS ORDERED: ACETAMINOPHEN 325 MG TABLET (FP) ONE (23:07)
[2023-04-07] MEDS: MULTIVIT-MINERALS ORAL LIQUID GT SCH (23:31)
[2023-04-08] MEDS: dilTIAZem HCL 30 MG TABLET GT SCH ×5 (00:18→23:08)
[2023-04-08] MEDS ORDERED: dilTIAZem HCL 30 MG TABLET ONE (06:13)
[2023-04-08 07:20] LABS: BASO % 1.3 % (0-2.0); HEMATOCRIT 37.6 % (32.4-45.2); HEMOGLOBIN 12.9 GM/dL (10.7-15.3); LYMPH % 39.8 % (8-40); MCH 30.9 pg (25.7-33.7); MCHC 34.3 g/dl (32.0-36.0); MEAN CELL VOLUME 90.1 fl (80-96); MEAN PLT VOLUME 9.4 fl (7.5-11.1); MONO % 20.8 % (3.8-10.2); NEUT % 36.1 % (42.8-82.8); PLATELET COUNT 314 10^3/uL (134-434); RBC 4.17 M/mm3 (3.60-5.2); RDW 13.9 % (11.6-15.6)
[2023-04-08 07:21] LABS: POTASSIUM 3.5 mmol/L (3.5-5.1)
[2023-04-08 07:24] LABS: CALCIUM 8.6 mg/dL (8.5-10.1)
[2023-04-08 07:25] LABS: BLOOD UREA NITROGEN 9.4 mg/dL (7-18)
[2023-04-08 07:28] LABS: CREATININE 0.4 mg/dL (0.55-1.3)
[2023-04-08] MEDS: DOCUSATE NA 100 MG/10 ML UNIT-DOSE CUPS GT SCH (09:00)
[2023-04-08] MEDS: CHOLECALCIFEROL (VIT D3) 1,000 UNIT (25 MCG) TABLET GT SCH ×2 (09:00→22:50)
[2023-04-08] MEDS ORDERED: CEFTRIAXONE 1 GM/50 ML BAG ONE (09:02)
[2023-04-08] MEDS ORDERED: CEFTRIAXONE 1 GM in DEXTROSE 5%-WATER - 50 ML IVPB SCH (10:00)
[2023-04-08 10:56] LABS: ANISOCYTOSIS 2+; MACROCYTOSIS 0
[2023-04-08] MEDS: FAMOTIDINE 20 MG TABLET NGT SCH (22:50)
[2023-04-08] MEDS: MULTIVIT-MINERALS ORAL LIQUID GT SCH (22:55)
[2023-04-09] MEDS: dilTIAZem HCL 30 MG TABLET GT SCH ×3 (06:35→17:05)
[2023-04-09 09:21] LABS: BASO % 1.2 % (0-2.0); HEMATOCRIT 38.2 % (32.4-45.2); HEMOGLOBIN 12.8 GM/dL (10.7-15.3); LYMPH % 52.8 % (8-40); MCH 30.2 pg (25.7-33.7); MCHC 33.7 g/dl (32.0-36.0); MEAN CELL VOLUME 89.8 fl (80-96); MEAN PLT VOLUME 9.4 fl (7.5-11.1); PLATELET COUNT 349 10^3/uL (134-434); RBC 4.25 M/mm3 (3.60-5.2); WHITE BLOOD COUNT 4.3 K/mm3 (4.0-10.0)
[2023-04-09 09:42] LABS: POTASSIUM 3.7 mmol/L (3.5-5.1)
[2023-04-09 09:43] LABS: CALCIUM 9.2 mg/dL (8.5-10.1)
[2023-04-09 09:44] LABS: BLOOD UREA NITROGEN 12.4 mg/dL (7-18)
[2023-04-09 09:47] LABS: CREATININE 0.4 mg/dL (0.55-1.3); PHOSPHOROUS 4.4 mg/dL (2.5-4.9)
[2023-04-09] MEDS: PIPERACILLIN/TAZOB 3.375 GM 3.375 GM in DEXTROSE 5%-WATER - 50 ML IVPB SCH ×2 (10:21→17:05)
[2023-04-09] MEDS: CHOLECALCIFEROL (VIT D3) 1,000 UNIT (25 MCG) TABLET GT SCH ×2 (10:22→21:11)
[2023-04-09] MEDS: DOCUSATE NA 100 MG/10 ML UNIT-DOSE CUPS GT SCH (10:23)
[2023-04-09 15:15] VITALS: BMI 22.5
[2023-04-09] MEDS: HEPARIN NA (PORCINE) 5,000 UNITS/ML 1ML VIAL SQ SCH ×2 (16:21→21:10)
[2023-04-09] MEDS: FAMOTIDINE 20 MG TABLET NGT SCH (21:11)
[2023-04-09] MEDS: MULTIVIT-MINERALS ORAL LIQUID GT SCH (21:11)
[2023-04-10] MEDS: dilTIAZem HCL 30 MG TABLET GT SCH ×5 (00:35→23:58)
[2023-04-10] MEDS: PIPERACILLIN/TAZOB 3.375 GM 3.375 GM in DEXTROSE 5%-WATER - 50 ML IVPB SCH ×3 (02:03→18:25)
[2023-04-10] MEDS: HEPARIN NA (PORCINE) 5,000 UNITS/ML 1ML VIAL SQ SCH ×3 (06:06→21:31)
[2023-04-10] MEDS: DOCUSATE NA 100 MG/10 ML UNIT-DOSE CUPS GT SCH (10:37)
[2023-04-10] MEDS: CHOLECALCIFEROL (VIT D3) 1,000 UNIT (25 MCG) TABLET GT SCH ×2 (10:37→21:31)
[2023-04-10] MEDS: FAMOTIDINE 20 MG TABLET NGT SCH (21:31)
[2023-04-10] MEDS: MULTIVIT-MINERALS ORAL LIQUID GT SCH (21:31)
[2023-04-11] MEDS: PIPERACILLIN/TAZOB 3.375 GM 3.375 GM in DEXTROSE 5%-WATER - 50 ML IVPB SCH ×3 (01:40→17:10)
[2023-04-11] MEDS: dilTIAZem HCL 30 MG TABLET GT SCH ×3 (06:11→17:10)
[2023-04-11] MEDS: HEPARIN NA (PORCINE) 5,000 UNITS/ML 1ML VIAL SQ SCH ×3 (06:11→22:02)
[2023-04-11] MEDS: CHOLECALCIFEROL (VIT D3) 1,000 UNIT (25 MCG) TABLET GT SCH ×2 (11:13→22:02)
[2023-04-11] MEDS: DOCUSATE NA 100 MG/10 ML UNIT-DOSE CUPS GT SCH (11:13)
[2023-04-11] MEDS: FAMOTIDINE 20 MG TABLET NGT SCH (22:02)
[2023-04-11] MEDS: MULTIVIT-MINERALS ORAL LIQUID GT SCH (22:03)
[2023-04-12] MEDS: dilTIAZem HCL 30 MG TABLET GT SCH ×4 (00:06→17:28)
[2023-04-12] MEDS: PIPERACILLIN/TAZOB 3.375 GM 3.375 GM in DEXTROSE 5%-WATER - 50 ML IVPB SCH ×3 (02:09→17:43)
[2023-04-12] MEDS: HEPARIN NA (PORCINE) 5,000 UNITS/ML 1ML VIAL SQ SCH ×3 (06:35→22:24)
[2023-04-12 08:15] LABS: BASO % 1.2 % (0-2.0); EOS % 6.1 % (0-4.5); HEMATOCRIT 37.7 % (32.4-45.2); HEMOGLOBIN 12.5 GM/dL (10.7-15.3); LYMPH % 45.4 % (8-40); MCH 29.9 pg (25.7-33.7); MCHC 33.1 g/dl (32.0-36.0); MEAN CELL VOLUME 90.2 fl (80-96); MEAN PLT VOLUME 9.1 fl (7.5-11.1); MONO % 10.8 % (3.8-10.2); NEUT % 36.5 % (42.8-82.8); PLATELET COUNT 348 10^3/uL (134-434); RBC 4.18 M/mm3 (3.60-5.2); RDW 13.5 % (11.6-15.6); WHITE BLOOD COUNT 5.2 K/mm3 (4.0-10.0)
[2023-04-12 08:30] LABS: POTASSIUM 3.3 mmol/L (3.5-5.1)
[2023-04-12 08:41] LABS: BLOOD UREA NITROGEN 15.4 mg/dL (7-18); CALCIUM 9.7 mg/dL (8.5-10.1)
[2023-04-12 08:43] LABS: CREATININE 0.5 mg/dL (0.55-1.3)
[2023-04-12 08:45] LABS: BILIRUBIN,TOTAL 0.4 mg/dL (0.2-1); TOT PROT 6.8 g/dl (6.4-8.2)
[2023-04-12] MEDS ORDERED: POTASSIUM CHLORIDE ORAL LIQUID 20 MEQ/15 ML GT ONE (09:25)
[2023-04-12] MEDS: DOCUSATE NA 100 MG/10 ML UNIT-DOSE CUPS GT SCH (10:27)
[2023-04-12] MEDS: CHOLECALCIFEROL (VIT D3) 1,000 UNIT (25 MCG) TABLET GT SCH ×2 (10:27→22:24)
[2023-04-12] MEDS: MULTIVIT-MINERALS ORAL LIQUID GT SCH (22:24)
[2023-04-12] MEDS: FAMOTIDINE 20 MG TABLET NGT SCH (22:24)
[2023-04-13] MEDS: dilTIAZem HCL 30 MG TABLET GT SCH ×4 (00:06→17:33)
[2023-04-13] MEDS: PIPERACILLIN/TAZOB 3.375 GM 3.375 GM in DEXTROSE 5%-WATER - 50 ML IVPB SCH ×3 (01:20→17:33)
[2023-04-13] MEDS: HEPARIN NA (PORCINE) 5,000 UNITS/ML 1ML VIAL SQ SCH ×3 (05:15→21:29)
[2023-04-13 09:54] LABS: EOS % 4.3 % (0-4.5); MCH 30.8 pg (25.7-33.7); MCHC 35.1 g/dl (32.0-36.0); MEAN CELL VOLUME 87.9 fl (80-96); MONO % 8.4 % (3.8-10.2); NEUT % 51.3 % (42.8-82.8); PLATELET COUNT 352 10^3/uL (134-434); RBC 4.21 M/mm3 (3.60-5.2); RDW 13.5 % (11.6-15.6); WHITE BLOOD COUNT 6.4 K/mm3 (4.0-10.0)
[2023-04-13 10:11] LABS: POTASSIUM 3.2 mmol/L (3.5-5.1)
[2023-04-13 10:19] LABS: ALBUMIN 3.1 g/dl (3.4-5.0); CREATININE 0.5 mg/dL (0.55-1.3)
[2023-04-13 10:20] LABS: BLOOD UREA NITROGEN 15.2 mg/dL (7-18)
[2023-04-13 10:21] LABS: BILIRUBIN,TOTAL 0.2 mg/dL (0.2-1)
[2023-04-13 10:23] LABS: CALCIUM 10.1 mg/dL (8.5-10.1)
[2023-04-13] MEDS: CHOLECALCIFEROL (VIT D3) 1,000 UNIT (25 MCG) TABLET GT SCH ×2 (10:47→21:29)
[2023-04-13] MEDS: DOCUSATE NA 100 MG/10 ML UNIT-DOSE CUPS GT SCH (10:47)
[2023-04-13] MEDS: MULTIVIT-MINERALS ORAL LIQUID GT SCH (21:29)
[2023-04-13] MEDS: FAMOTIDINE 20 MG TABLET NGT SCH (21:29)
[2023-04-14] MEDS: dilTIAZem HCL 30 MG TABLET GT SCH ×4 (01:22→18:02)
[2023-04-14] MEDS: PIPERACILLIN/TAZOB 3.375 GM 3.375 GM in DEXTROSE 5%-WATER - 50 ML IVPB SCH ×3 (01:40→18:01)
[2023-04-14] MEDS: HEPARIN NA (PORCINE) 5,000 UNITS/ML 1ML VIAL SQ SCH ×3 (05:45→22:47)
[2023-04-14] MEDS ORDERED: POTASSIUM CHLORIDE ORAL LIQUID 20 MEQ/15 ML GT ONE (08:27)
[2023-04-14] MEDS ORDERED: SODIUM CHLORIDE 1,000 ML IV SCH (08:30)
[2023-04-14] MEDS: CHOLECALCIFEROL (VIT D3) 1,000 UNIT (25 MCG) TABLET GT SCH ×2 (11:12→22:47)
[2023-04-14] MEDS: DOCUSATE NA 100 MG/10 ML UNIT-DOSE CUPS GT SCH (11:12)
[2023-04-14 15:47] LABS: EPI CELLS 14 /uL (0-25.1); HYALINE CASTS 12 /uL (0-3.1); PH,URINE 8.5 (5.0-8.0); URINE APPEARANCE TURBID; URINE BACTERIA 138 /uL (0-1359); URINE BILIRUBIN NEGATIVE (NEGATIVE); URINE COLOR YELLOW; URINE GLUCOSE (UA) NEGATIVE (NEGATIVE); URINE KETONE NEGATIVE (NEGATIVE); URINE LEUK ESTERASE TRACE (NEGATIVE); URINE NITRITE NEGATIVE (NEGATIVE); URINE PROTEIN TRACE (NEGATIVE); URINE RBC 11 /uL (0-23.9); URINE UROBILINOGEN 0.2 mg/dL (0.2-1.0); URINE WBC 1 /uL (0-25.8)
[2023-04-14] MEDS: FAMOTIDINE 20 MG TABLET NGT SCH (22:47)
[2023-04-14] MEDS: MULTIVIT-MINERALS ORAL LIQUID GT SCH (22:47)
[2023-04-15] MEDS: dilTIAZem HCL 30 MG TABLET GT SCH ×4 (00:51→18:05)
[2023-04-15] MEDS: PIPERACILLIN/TAZOB 3.375 GM 3.375 GM in DEXTROSE 5%-WATER - 50 ML IVPB SCH ×3 (02:43→18:05)
[2023-04-15] MEDS: HEPARIN NA (PORCINE) 5,000 UNITS/ML 1ML VIAL SQ SCH ×3 (05:21→23:01)
[2023-04-15] MEDS: SODIUM CHLORIDE 1,000 ML IV SCH (09:00)
[2023-04-15] MEDS: CHOLECALCIFEROL (VIT D3) 1,000 UNIT (25 MCG) TABLET GT SCH ×2 (10:32→22:43)
[2023-04-15] MEDS: DOCUSATE NA 100 MG/10 ML UNIT-DOSE CUPS GT SCH (11:02)
[2023-04-15 11:51] LABS: BASO % 0.9 % (0-2.0); EOS % 5.1 % (0-4.5); HEMATOCRIT 38.1 % (32.4-45.2); HEMOGLOBIN 12.7 GM/dL (10.7-15.3); LYMPH % 51.7 % (8-40); MCH 29.9 pg (25.7-33.7); MCHC 33.4 g/dl (32.0-36.0); MEAN CELL VOLUME 89.4 fl (80-96); MEAN PLT VOLUME 8.8 fl (7.5-11.1); MONO % 9.2 % (3.8-10.2); NEUT % 33.1 % (42.8-82.8); PLATELET COUNT 364 10^3/uL (134-434); RBC 4.27 M/mm3 (3.60-5.2); RDW 13.6 % (11.6-15.6); WHITE BLOOD COUNT 5.8 K/mm3 (4.0-10.0)
[2023-04-15 12:16] LABS: POTASSIUM 3.4 mmol/L (3.5-5.1)
[2023-04-15 12:22] LABS: BLOOD UREA NITROGEN 12.6 mg/dL (7-18); CALCIUM 9.4 mg/dL (8.5-10.1)
[2023-04-15 12:26] LABS: CREATININE 0.5 mg/dL (0.55-1.3)
[2023-04-15 12:27] LABS: BILIRUBIN,TOTAL 0.3 mg/dL (0.2-1); TOT PROT 6.9 g/dl (6.4-8.2)
[2023-04-15] MEDS: MULTIVIT-MINERALS ORAL LIQUID GT SCH (22:43)
[2023-04-15] MEDS: FAMOTIDINE 20 MG TABLET NGT SCH (22:43)
[2023-04-16] MEDS: dilTIAZem HCL 30 MG TABLET GT SCH ×4 (01:06→17:34)
[2023-04-16] MEDS: SODIUM CHLORIDE 1,000 ML IV SCH ×2 (01:21→11:17)
[2023-04-16] MEDS ORDERED: TUBE FEED DECLOGGING SOLUTION 12,000 UNITS GT ONE (02:00)
[2023-04-16] MEDS: PIPERACILLIN/TAZOB 3.375 GM 3.375 GM in DEXTROSE 5%-WATER - 50 ML IVPB SCH (03:44)
[2023-04-16] MEDS: HEPARIN NA (PORCINE) 5,000 UNITS/ML 1ML VIAL SQ SCH ×2 (06:11→14:44)
[2023-04-16] MEDS: DOCUSATE NA 100 MG/10 ML UNIT-DOSE CUPS GT SCH (11:17)
[2023-04-16] MEDS: CHOLECALCIFEROL (VIT D3) 1,000 UNIT (25 MCG) TABLET GT SCH ×2 (11:17→22:22)
[2023-04-16] MEDS: FAMOTIDINE 20 MG TABLET NGT SCH (22:22)
[2023-04-16] MEDS: MULTIVIT-MINERALS ORAL LIQUID GT SCH (22:55)
[2023-04-17] MEDS: dilTIAZem HCL 30 MG TABLET GT SCH ×3 (00:59→11:49)
[2023-04-17] MEDS: CHOLECALCIFEROL (VIT D3) 1,000 UNIT (25 MCG) TABLET GT SCH (10:40)
[2023-04-17] MEDS: DOCUSATE NA 100 MG/10 ML UNIT-DOSE CUPS GT SCH (10:40)
[2023-04-17 14:44] VITALS: BP 104/69; PULSE 73; RESP 20; TEMP 98.6
== END 2023-04-17 17:20 | DRG 871 ==
LOC: JER 10:08 → JERBED 12:12 → J7W 04-08 18:55
PROVIDERS: ADMIT Internal Medicine; ATTEND Internal Medicine
DX: A41.89 Other specified sepsis (principal); R53.2 Functional quadriplegia; Q67.5 Congenital deformity of spine; N39.0 Urinary tract infection, site not specified; G40.909 Epilepsy, unspecified, not intractable, without status epilepticus; Q02 Microcephaly; K59.00 Constipation, unspecified; K57.90 Diverticulosis of intestine, part unspecified, without perforation or abscess without bleeding; B96.1 Klebsiella pneumoniae [K. pneumoniae] as the cause of diseases classified elsewhere; G80.9 Cerebral palsy, unspecified; E86.0 Dehydration; E87.6 Hypokalemia; Z93.1 Gastrostomy status
CPT/HCPCS: 0241U-QW; 36415; 71045-TC-FY; 80048; 80053; 81003; 82550; 82553; 82803; 83605; 83735; 84100; 84484; 85025; 86140; 86682; 87040; 87086; 87186; 87635; 93005; 93010; 99285-25; J1644

== ENCOUNTER 2024-06-05 19:21 | Inpatient (IN) | payer OTHER ==
[2024-06-05 20:02] VITALS: BMI 22.7
[2024-06-05] MEDS ORDERED: ALBUTEROL SO4 2.5/IPRATROPIUM 0.5 INH SOL 3 ML VIAL.NEB. NEB ONE (20:11)
[2024-06-05 20:18] LABS: VENOUS BASE EXCESS 3.3 mmol/L (-2-2); VENOUS O2 SATURATION 98.3 % (70-80); VENOUS PH 7.477 (7.310-7.410)
[2024-06-05] MEDS: ALBUTEROL SO4 2.5/IPRATROPIUM 0.5 INH SOL 3 ML VIAL.NEB. NEB ONE (20:18)
[2024-06-05] MEDS: SODIUM CHLORIDE 0.9% 500 ML INFUS.BAG IV ONE (20:18)
[2024-06-05] MEDS: ACETAMINOPHEN 650 MG/20.3 ML ORAL SOLUTION (CUPS) GT ONE (20:19)
[2024-06-05 20:20] LABS: INR 0.99 (0.83-1.09); PROTHROMBIN TIME (PATIENT) 11.4 SEC (9.7-13.0)
[2024-06-05 20:22] LABS: ACTIVATED PTT 21.4 SECONDS (25.2-36.5)
[2024-06-05 20:23] LABS: HEMATOCRIT 39.5 % (32.4-45.2); MCH 30.7 pg (25.7-33.7); MEAN CELL VOLUME 92.9 fl (80-96); MEAN PLT VOLUME 9.6 fl (7.5-11.1); PLATELET COUNT 345 10^3/uL (134-434); RBC 4.25 M/mm3 (3.60-5.2); RDW 12.1 % (11.6-15.6)
[2024-06-05 20:30] LABS: POTASSIUM 3.4 mmol/L (3.5-5.1)
[2024-06-05 20:32] LABS: ALBUMIN 3.2 g/dl (3.4-5.0); BLOOD UREA NITROGEN 10.7 mg/dL (7-18); CALCIUM 8.8 mg/dL (8.5-10.1); MAGNESIUM 2.4 mg/dL (1.8-2.4)
[2024-06-05 20:36] LABS: CREATININE 0.4 mg/dL (0.55-1.3)
[2024-06-05 20:37] LABS: BILIRUBIN,TOTAL 0.6 mg/dL (0.2-1); TOT PROT 6.7 g/dl (6.4-8.2)
[2024-06-05] MEDS ORDERED: ACETAMINOPHEN 650 MG SUPP.RECT ONE (20:44)
[2024-06-05] MEDS ORDERED: ACETAMINOPHEN 325 MG SUPP.RECT ONE (20:51)
[2024-06-05] MEDS: ACETAMINOPHEN 650 MG SUPP.RECT PR ONE (20:59)
[2024-06-05 21:09] LABS: PH,URINE 8.5 (5.0-8.0); URINE APPEARANCE CLEAR; URINE BILIRUBIN NEGATIVE (NEGATIVE); URINE COLOR YELLOW; URINE GLUCOSE (UA) NEGATIVE (NEGATIVE); URINE KETONE NEGATIVE (NEGATIVE); URINE LEUK ESTERASE 2+ (NEGATIVE); URINE NITRITE NEGATIVE (NEGATIVE); URINE PROTEIN NEGATIVE (NEGATIVE); URINE UROBILINOGEN 0.2 mg/dL (0.2-1.0)
[2024-06-05] MEDS ORDERED: MEROPENEM-0.9% SODIUM CHLORIDE 1 GM/50 ML BAG IVPB ONE (21:21)
[2024-06-05 21:23] LABS: ANISOCYTOSIS 0; MACROCYTOSIS 0
[2024-06-05 21:26] LABS: WHITE BLOOD COUNT 18.8 K/mm3 (4.0-10.0)
[2024-06-05] MEDS: MEROPENEM 1 GM in DEXTROSE 5%-WATER 100 ML IVPB ONE (21:27)
[2024-06-05] MEDS ORDERED: VANCOMYCIN 1 GM PREMIX (F) 1 GM/200 ML BAG ONE (22:10)
[2024-06-05 22:18] LABS: EPI CELLS 3.5 /uL (0-25.1); URINE BACTERIA 15.1 /uL (0-1359); URINE RBC 21.3 /uL (0-23.9); URINE WBC 55.3 /uL (0-25.8)
[2024-06-05] MEDS: VANCOMYCIN 1,000 MG in DEXTROSE 5%-WATER - 250 ML IVPB ONE (23:26)
[2024-06-06] MEDS: SODIUM CHLORIDE 1,000 ML IV SCH
[2024-06-06] MEDS ORDERED: guaiFENesin 200 MG/10 ML 10 ML UNIT-DOSE CUPS GT PRN (05:15)
[2024-06-06] MEDS ORDERED: SODIUM PHOSPHATE/NA BIPHOS 133 ML ENEMA RC PRN (05:15)
[2024-06-06] MEDS ORDERED: SIMETHICONE 40 MG/0.6 ML BOTTLE GT PRN (05:15)
[2024-06-06] MEDS ORDERED: diazePAM 2 MG TABLET GT PRN (05:15)
[2024-06-06] MEDS ORDERED: BACITRACIN ZINC 15 GM TUBE TOPICAL OINTMENT TP PRN (05:15)
[2024-06-06] MEDS ORDERED: NAPHAZOLINE/PHENIRAMINE OPHTHALMIC 15 ML BOTTLE OU PRN (11:00)
[2024-06-06] MEDS ORDERED: ALBUTEROL SO4 2.5/IPRATROPIUM 0.5 INH SOL 3 ML VIAL.NEB. NEB ONE (11:54)
[2024-06-06] MEDS ORDERED: ENOXAPARIN NA (PORCINE) 40 MG/0.4 ML DISP.SYRIN SQ ONE (11:54)
[2024-06-06] MEDS ORDERED: guaiFENesin/D-METHORPHAN HB 10 ML UNIT-DOSE CUPS ONE (11:54)
[2024-06-06] MEDS ORDERED: CEFTRIAXONE 1 G/50 ML PREMIX 50 ML IVPB ONE (11:55)
[2024-06-06] MEDS ORDERED: methylPREDNISolone NA SUCC 40 MG/1 ML VIAL ONE (11:55)
[2024-06-06 12:07] LABS: BASO % 0.4 % (0-2.0); EOS % 1.6 % (0-4.5); HEMATOCRIT 36.9 % (32.4-45.2); HEMOGLOBIN 12.8 GM/dL (10.7-15.3); LYMPH % 24.2 % (8-40); MCH 32.3 pg (25.7-33.7); MCHC 34.8 g/dl (32.0-36.0); MEAN PLT VOLUME 8.8 fl (7.5-11.1); MONO % 11.2 % (3.8-10.2); NEUT % 62.6 % (42.8-82.8); PLATELET COUNT 297 10^3/uL (134-434); RBC 3.97 M/mm3 (3.60-5.2); RDW 12.1 % (11.6-15.6); WHITE BLOOD COUNT 8.2 K/mm3 (4.0-10.0)
[2024-06-06] MEDS: ENOXAPARIN NA (PORCINE) 40 MG/0.4 ML DISP.SYRIN SQ SCH (12:12)
[2024-06-06] MEDS: CEFTRIAXONE 1 G/50 ML PREMIX 50 ML IVPB SCH (12:12)
[2024-06-06] MEDS: methylPREDNISolone NA SUCC 40 MG/1 ML VIAL IVPUSH SCH ×2 (12:13→20:18)
[2024-06-06] MEDS ORDERED: POTASSIUM CHLORIDE ORAL LIQUID 20 MEQ/15 ML ONE (12:17)
[2024-06-06 12:32] LABS: CALCIUM 8.2 mg/dL (8.5-10.1)
[2024-06-06 12:33] LABS: ALBUMIN 2.9 g/dl (3.4-5.0); BLOOD UREA NITROGEN 9.3 mg/dL (7-18); MAGNESIUM 2.3 mg/dL (1.8-2.4)
[2024-06-06 12:36] LABS: CREATININE 0.3 mg/dL (0.55-1.3); PHOSPHOROUS 2.5 mg/dL (2.5-4.9)
[2024-06-06 12:37] LABS: BILIRUBIN,TOTAL 0.8 mg/dL (0.2-1); TOT PROT 6.3 g/dl (6.4-8.2)
[2024-06-06] MEDS: POTASSIUM CHLORIDE ORAL LIQUID 20 MEQ/15 ML GT SCH (13:00)
[2024-06-06] MEDS: guaiFENesin/D-METHORPHAN HB 10 ML UNIT-DOSE CUPS GT SCH (13:00)
[2024-06-06] MEDS: ALBUTEROL SO4 2.5/IPRATROPIUM 0.5 INH SOL 3 ML VIAL.NEB. NEB SCH ×2 (13:00→14:00)
[2024-06-06] MEDS: MAGNESIUM HYDROX 2400MG/30ML ORAL SUSPENSION 30 ML CUP GT SCH (13:00)
[2024-06-06] MEDS: DOCUSATE NA 100 MG/10 ML UNIT-DOSE CUPS GT SCH (13:00)
[2024-06-06] MEDS ORDERED: MEROPENEM-0.9% SODIUM CHLORIDE 1 GM/50 ML BAG IVPB SCH (18:00)
[2024-06-06] MEDS: PIPERACILLIN/TAZOB 3.375 GM 50 ML IVPB SCH ×2 (20:16→20:18)
[2024-06-06] MEDS: MEROPENEM 1 GM in DEXTROSE 5%-WATER 100 ML IVPB SCH (20:17)
[2024-06-06] MEDS: MEROPENEM-0.9% SODIUM CHLORIDE 1 GM/50 ML BAG IVPB SCH (20:18)
[2024-06-06] MEDS: FAMOTIDINE 20 MG/2.5 ML ORAL LIQUID PEG SCH (22:58)
[2024-06-06] MEDS: MULTIVIT-MINERALS ORAL LIQUID GT SCH (22:58)
[2024-06-06] MEDS: LORATADINE 10 MG TABLET GT SCH (22:58)
[2024-06-06] MEDS: BUDESONIDE/FORMETEROL FUMARATE 80/4.5 mcg INHALER IH SCH (22:59)
[2024-06-07 09:52] LABS: BASO % 0.5 % (0-2.0); EOS % 0.4 % (0-4.5); HEMATOCRIT 37.4 % (32.4-45.2); LYMPH % 33.4 % (8-40); MCH 32.7 pg (25.7-33.7); MCHC 34.9 g/dl (32.0-36.0); MEAN CELL VOLUME 93.6 fl (80-96); MEAN PLT VOLUME 8.9 fl (7.5-11.1); MONO % 10.6 % (3.8-10.2); NEUT % 55.1 % (42.8-82.8); PLATELET COUNT 318 10^3/uL (134-434); RBC 3.99 M/mm3 (3.60-5.2); RDW 12.4 % (11.6-15.6); WHITE BLOOD COUNT 8.1 K/mm3 (4.0-10.0)
[2024-06-07 10:07] LABS: POTASSIUM 4.2 mmol/L (3.5-5.1)
[2024-06-07 10:08] LABS: BLOOD UREA NITROGEN 14.2 mg/dL (7-18); CALCIUM 8.6 mg/dL (8.5-10.1)
[2024-06-07 10:12] LABS: CREATININE 0.3 mg/dL (0.55-1.3)
[2024-06-07] MEDS: predniSONE 20 MG TABLET (UD) GT SCH (10:20)
[2024-06-07] MEDS: ACETAMINOPHEN 500 MG TABLET (FP) GT PRN (14:57)
[2024-06-08 08:54] LABS: BASO % 0.4 % (0-2.0); EOS % 0.4 % (0-4.5); HEMATOCRIT 38.2 % (32.4-45.2); HEMOGLOBIN 13.1 GM/dL (10.7-15.3); LYMPH % 39.3 % (8-40); MCH 32.3 pg (25.7-33.7); MCHC 34.4 g/dl (32.0-36.0); MEAN CELL VOLUME 93.8 fl (80-96); MEAN PLT VOLUME 8.8 fl (7.5-11.1); MONO % 11.9 % (3.8-10.2); PLATELET COUNT 365 10^3/uL (134-434); RBC 4.07 M/mm3 (3.60-5.2); RDW 12.4 % (11.6-15.6); WHITE BLOOD COUNT 7.4 K/mm3 (4.0-10.0)
[2024-06-08 09:14] LABS: CALCIUM 9.7 mg/dL (8.5-10.1)
[2024-06-08 09:15] LABS: BLOOD UREA NITROGEN 21.7 mg/dL (7-18)
[2024-06-08 09:18] LABS: CREATININE 0.4 mg/dL (0.55-1.3)
[2024-06-09] MEDS: ALBUTEROL SO4 2.5/IPRATROPIUM 0.5 INH SOL 3 ML VIAL.NEB. NEB SCH (08:29)
[2024-06-09] MEDS: AMINO ACIDS/PROTEIN HYDROLYS 30 ML LIQUID.PKT PO SCH (10:00)
[2024-06-09 10:48] LABS: BASO % 0.5 % (0-2.0); EOS % 0.9 % (0-4.5); HEMATOCRIT 37.2 % (32.4-45.2); LYMPH % 47.9 % (8-40); MCH 32.4 pg (25.7-33.7); MCHC 34.8 g/dl (32.0-36.0); MEAN CELL VOLUME 92.9 fl (80-96); MEAN PLT VOLUME 8.5 fl (7.5-11.1); MONO % 12.7 % (3.8-10.2); PLATELET COUNT 418 10^3/uL (134-434); RDW 12.1 % (11.6-15.6)
[2024-06-09 11:27] LABS: CALCIUM 10.2 mg/dL (8.5-10.1)
[2024-06-09 11:28] LABS: BLOOD UREA NITROGEN 14.4 mg/dL (7-18)
[2024-06-09 11:30] LABS: CREATININE 0.4 mg/dL (0.55-1.3)
[2024-06-09 14:32] VITALS: RESP 18
[2024-06-10 11:06] VITALS: BP 118/67; PULSE 86; TEMP 98.1
== END 2024-06-10 11:11 | disposition home or self-care (01) | DRG 592 ==
LOC: JER 19:21 → JERBED 21:40 → J7W 06-06 16:13
PROVIDERS: ADMIT Internal Medicine; ATTEND Internal Medicine
DX: L89.152 Pressure ulcer of sacral region, stage 2 (principal); R53.2 Functional quadriplegia; N39.0 Urinary tract infection, site not specified; G80.9 Cerebral palsy, unspecified; M41.9 Scoliosis, unspecified; Z93.1 Gastrostomy status; K59.00 Constipation, unspecified
CPT/HCPCS: 0241U-QW; 36415; 71045-TC-FY; 71250-TC; 71275-TC; 80048; 80053; 81003; 82803; 83605; 83735; 84100; 84484; 85025; 85610; 85730; 87040; 87070; 87086; 87186; 87205; 87635; 93005; 93010; 94640; 99285-25; Q9967

== ENCOUNTER 2025-02-19 21:46 | Inpatient (IN) | payer OTHER ==
[2025-02-19] MEDS ORDERED: ACETAMINOPHEN INJECTION 100 ML ONE (22:35)
[2025-02-19] MEDS: SODIUM CHLORIDE 0.9% 500 ML INFUS.BAG IV ONE (22:38)
[2025-02-19] MEDS: ACETAMINOPHEN 1000 MG/100 ML BAG IVPB ONE (22:38)
[2025-02-19 22:44] LABS: ABSOLUTE IMMATURE GRANULOCYTES 0.02 x10^3/uL (0.0-0.031); BASOPHILS # 0.06 x10^3/uL (0.01-0.08); EOSINOPHIL % 5.0 % (0.7-5.8); EOSINOPHILS # 0.40 x10^3/uL (0.04-0.36); MCHC 33.8 g/dl (32.2-35.5); MEAN CELL VOLUME 94.2 fl (79.4-94.8); MEAN PLT VOLUME 11.3 fl (9.4-12.3); MONOCYTE # 1.24 x10^3/uL (0.24-0.86); MONOCYTE % 15.3 % (4.7-12.5); RDW 12.2 % (12.3-16.6)
[2025-02-19 22:52] LABS: BG HCT 48.0 % (32.4-45.2); INR 1.06 (0.83-1.09); PROTHROMBIN TIME (PATIENT) 11.6 SEC (9.7-13.0); VENOUS BASE EXCESS 1.5 mmol/L (-2-2); VENOUS O2 SATURATION 81.1 % (70-80); VENOUS PCO2 39.3 mmHg (38-52); VENOUS PH 7.434 (7.310-7.410)
[2025-02-19 22:55] LABS: ACTIVATED PTT 35.8 SECONDS (25.2-36.5)
[2025-02-19 23:02] LABS: GLUCOSE,RANDOM 131.0 mg/dL (74-106); TOT PROT 7.7 g/dl (6.4-8.2)
[2025-02-19 23:03] LABS: CO2 23.0 mmol/L (21-32)
[2025-02-19 23:04] LABS: ALK PHOS 118.0 U/L (40-150)
[2025-02-19 23:07] LABS: CREATININE 0.35 mg/dL (0.55-1.3); SGOT/AST 30.0 U/L (5-34); SGPT/ALT 18.0 U/L (0-55)
[2025-02-19 23:08] LABS: LACTIC ACID 2.1 mmol/L (0.4-2.0)
[2025-02-19] MEDS ORDERED: PIPERACILLIN/TAZOB 3.375 GM 3.375 GM/50 ML BAG IVPB ONE (23:39)
[2025-02-19] MEDS ORDERED: VANCOMYCIN 1 GM PREMIX (F) 1 GM/200 ML BAG ONE ×3 (23:39)
[2025-02-19] MEDS: PIPERACILLIN/TAZOB 3.375 GM 3.375 GM in DEXTROSE 5%-WATER - 50 ML IVPB ONE (23:41)
[2025-02-19] MEDS: VANCOMYCIN 1,000 MG in DEXTROSE 5%-WATER - 250 ML IVPB ONE (23:48)
[2025-02-20 00:12] LABS: URINE APPEARANCE Clear; URINE BILIRUBIN Negative (NEGATIVE); URINE COLOR Light yellow; URINE GLUCOSE (UA) Negative (NEGATIVE); URINE KETONE Negative (NEGATIVE); URINE LEUK ESTERASE 3+ (NEGATIVE); URINE NITRITE Negative (NEGATIVE); URINE PROTEIN Negative (NEGATIVE); URINE UROBILINOGEN 0.2 mg/dL (0.2-1.0)
[2025-02-20 00:51] LABS: LACTIC ACID 2.3 mmol/L (0.4-2.0)
[2025-02-20] MEDS: SODIUM CHLORIDE 0.9% 500 ML INFUS.BAG IV ONE (01:32)
[2025-02-20 03:15] LABS: LACTIC ACID 3.6 mmol/L (0.4-2.0)
[2025-02-20] MEDS: SODIUM CHLORIDE 1,000 ML IV STA (04:29)
[2025-02-20] MEDS ORDERED: SODIUM CHLORIDE NASAL SPRAY 44 ML BOTTLE NS PRN (04:40)
[2025-02-20] MEDS ORDERED: diphenhydrAMINE HCL 12.5 MG/5 ML UNIT-DOSE CUPS GT PRN (04:40)
[2025-02-20] MEDS ORDERED: ACETAMINOPHEN 650 MG/20.3 ML ORAL SOLUTION (CUPS) GT PRN (04:40)
[2025-02-20] MEDS ORDERED: SIMETHICONE 40 MG/0.6 ML BOTTLE GT PRN (04:40)
[2025-02-20] MEDS ORDERED: guaiFENesin 200 MG/10 ML 10 ML UNIT-DOSE CUPS GT PRN (04:40)
[2025-02-20] MEDS ORDERED: BACITRACIN ZINC 15 GM TUBE TOPICAL OINTMENT TP PRN (04:40)
[2025-02-20] MEDS ORDERED: PIPERACILLIN/TAZOB 3.375 GM 3.375 GM in DEXTROSE 5%-WATER - 50 ML IVPB SCH (06:00)
[2025-02-20] MEDS: SODIUM CHLORIDE 1,000 ML IV SCH (07:23)
[2025-02-20] MEDS: PIPERACILLIN/TAZOB 3.375 GM 3.375 GM in DEXTROSE 5%-WATER - 50 ML IVPB SCH ×2 (07:24→17:16)
[2025-02-20] MEDS: AMINO ACIDS/PROTEIN HYDROLYS 30 ML LIQUID.PKT GT SCH (08:40)
[2025-02-20] MEDS: ALBUTEROL SO4 2.5/IPRATROPIUM 0.5 INH SOL 3 ML VIAL.NEB. NEB SCH ×2 (10:05→11:51)
[2025-02-20] MEDS: ENOXAPARIN NA (PORCINE) 40 MG/0.4 ML DISP.SYRIN SQ SCH (10:26)
[2025-02-20] MEDS: DOCUSATE NA 100 MG/10 ML UNIT-DOSE CUPS GT SCH (10:27)
[2025-02-20] MEDS: CHOLECALCIFEROL (VIT D3) 1,000 UNIT (25 MCG) TABLET GT SCH (10:27)
[2025-02-20] MEDS: methylPREDNISolone NA SUCC 40 MG/1 ML VIAL IVPUSH ONE (14:03)
[2025-02-20] MEDS: FAMOTIDINE 20 MG TABLET PEG SCH (22:00)
[2025-02-21 10:26] LABS: ABSOLUTE IMMATURE GRANULOCYTES 0.05 x10^3/uL (0.0-0.031); BASOPHILS # 0.04 x10^3/uL (0.01-0.08); EOSINOPHIL % 0.0 % (0.7-5.8); EOSINOPHILS # 0.00 x10^3/uL (0.04-0.36); MCHC 33.0 g/dl (32.2-35.5); MEAN CELL VOLUME 95.9 fl (79.4-94.8); MEAN PLT VOLUME 10.9 fl (9.4-12.3); MONOCYTE # 0.79 x10^3/uL (0.24-0.86); MONOCYTE % 11.8 % (4.7-12.5); RDW 12.7 % (12.3-16.6)
[2025-02-21 10:52] LABS: GLUCOSE,RANDOM 115.0 mg/dL (74-106); TOT PROT 5.7 g/dl (6.4-8.2)
[2025-02-21 10:53] LABS: CO2 23.0 mmol/L (21-32)
[2025-02-21 10:55] LABS: ALK PHOS 81.0 U/L (40-150)
[2025-02-21 10:58] LABS: CREATININE 0.36 mg/dL (0.55-1.3); SGOT/AST 23.0 U/L (5-34); SGPT/ALT 13.0 U/L (0-55)
[2025-02-21 12:31] VITALS: BMI 26.4
[2025-02-22] MEDS: MIDODRINE HCL 5 MG TABLET PO SCH (14:36)
[2025-02-22 16:39] LABS: ABSOLUTE IMMATURE GRANULOCYTES 0.01 x10^3/uL (0.0-0.031); BASOPHILS # 0.07 x10^3/uL (0.01-0.08); EOSINOPHIL % 8.9 % (0.7-5.8); EOSINOPHILS # 0.61 x10^3/uL (0.04-0.36); MCHC 31.2 g/dl (32.2-35.5); MEAN CELL VOLUME 100.0 fl (79.4-94.8); MEAN PLT VOLUME 11.2 fl (9.4-12.3); MONOCYTE # 0.82 x10^3/uL (0.24-0.86); MONOCYTE % 12.0 % (4.7-12.5); RDW 13.2 % (12.3-16.6)
[2025-02-22 16:54] LABS: GLUCOSE,RANDOM 94.0 mg/dL (74-106)
[2025-02-22 16:56] LABS: CO2 25.0 mmol/L (21-32)
[2025-02-22 17:00] LABS: CREATININE 0.33 mg/dL (0.55-1.3)
[2025-02-23 10:09] LABS: ABSOLUTE IMMATURE GRANULOCYTES 0.01 x10^3/uL (0.0-0.031); BASOPHILS # 0.06 x10^3/uL (0.01-0.08); EOSINOPHIL % 12.9 % (0.7-5.8); EOSINOPHILS # 0.84 x10^3/uL (0.04-0.36); MCHC 33.2 g/dl (32.2-35.5); MEAN CELL VOLUME 95.6 fl (79.4-94.8); MEAN PLT VOLUME 11.3 fl (9.4-12.3); MONOCYTE # 0.65 x10^3/uL (0.24-0.86); MONOCYTE % 10.0 % (4.7-12.5); RDW 12.7 % (12.3-16.6)
[2025-02-23 10:48] LABS: GLUCOSE,RANDOM 117.0 mg/dL (74-106)
[2025-02-23 10:49] LABS: TOT PROT 6.2 g/dl (6.4-8.2)
[2025-02-23 10:50] LABS: CO2 28.0 mmol/L (21-32)
[2025-02-23 10:51] LABS: ALK PHOS 85.0 U/L (40-150)
[2025-02-23 10:54] LABS: CREATININE 0.32 mg/dL (0.55-1.3); SGOT/AST 25.0 U/L (5-34); SGPT/ALT 14.0 U/L (0-55)
[2025-02-23] MEDS: FUROSEMIDE 40 MG/4 ML INJECTABLE VIAL IVPUSH ONE ×2 (13:34)
[2025-02-23] MEDS: AMOX TR/POTASSIUM CLAVULANATE 400 MG/5 ML BOTTLE GT SCH (18:20)
[2025-02-24] MEDS ORDERED: BISACODYL 10 MG SUPP.RECT RC PRN (08:30)
[2025-02-24] MEDS ORDERED: ZINC OXIDE 20% TOPICAL OINTMENT 30 GM TUBE TP PRN (08:30)
[2025-02-24 09:13] LABS: MCHC 33.0 g/dl (32.2-35.5); MEAN CELL VOLUME 96.0 fl (79.4-94.8); MEAN PLT VOLUME 11.1 fl (9.4-12.3); RDW 12.6 % (12.3-16.6)
[2025-02-24 09:46] LABS: GLUCOSE,RANDOM 117.0 mg/dL (74-106)
[2025-02-24 09:47] LABS: CO2 26.0 mmol/L (21-32)
[2025-02-24 09:52] LABS: CREATININE 0.44 mg/dL (0.55-1.3)
[2025-02-24] MEDS ORDERED: CRANBERRY FRUIT 500 MG GT SCH (10:00)
[2025-02-24] MEDS ORDERED: NAPHAZOLINE/PHENIRAMINE OPHTHALMIC 15 ML BOTTLE OU PRN (11:30)
[2025-02-24] MEDS: BENZOYL PEROXIDE 5% 60 GM GEL..GRAM. TP SCH (15:55)
[2025-02-24] MEDS: MULTIVIT-MINERALS ORAL LIQUID GT SCH (21:46)
[2025-02-24] MEDS: LORATADINE 10 MG TABLET GT SCH (21:47)
[2025-02-24 22:35] VITALS: RESP 18
[2025-02-25 06:47] VITALS: BP 112/77; PULSE 81; TEMP 99.5
[2025-02-25] MEDS: MAGNESIUM HYDROX 2400MG/30ML ORAL SUSPENSION 30 ML CUP GT SCH (10:05)
[2025-02-25] MEDS: SELENIUM SULFIDE 2.25% 180 ML SHAMPOO TP SCH (10:06)
== END 2025-02-25 13:07 | disposition home or self-care (01) | DRG 177 ==
LOC: JER 21:46 → JERBED 23:18 → J6S 02-20 05:19
PROVIDERS: ADMIT Internal Medicine; ATTEND Internal Medicine
DX: J69.0 Pneumonitis due to inhalation of food and vomit (principal); R53.2 Functional quadriplegia; E87.0 Hyperosmolality and hypernatremia; I48.91 Unspecified atrial fibrillation; Q02 Microcephaly; M41.9 Scoliosis, unspecified; L89.891 Pressure ulcer of other site, stage 1; R00.1 Bradycardia, unspecified; G40.909 Epilepsy, unspecified, not intractable, without status epilepticus; E87.6 Hypokalemia; E83.39 Other disorders of phosphorus metabolism; E83.51 Hypocalcemia; I95.9 Hypotension, unspecified
CPT/HCPCS: 36415; 71045-TC-FY; 71250-TC; 74176-TC; 80048; 80053; 81003; 82803; 83605; 83735; 84100; 84484; 85025; 85610; 85730; 86850; 86900; 86901; 87040; 87070; 87081; 87086; 87205; 87635; 87637-QW; 87899; 93005; 93010; 94640; 99285-25